=== PATIENT | male | born 1940 | race Caucasian/White ===

== ENCOUNTER 2023-11-09 17:13 | Outpatient (CLI) | payer MEDICARE, BC, SELFPAY ==
--- OUTSIDE RECORDS SUMMARY | 2023-11-11 09:31 | XMS_ITS | Encounter Summary ---
Author Name Unknown Organization [place] Address [address] [facility] [place] [address] Care Team Providers Care Hydroelectric Plant Maintainer Name Role Phone Idania Iraheta MD Primary Care Provider [phone] Encounter Details Date Type Department Care Team (Late st Contact Info) Description 05/17/2018 [facility] [address] [place] [address] Kermit Dickens MD [facility] [address] [facility] [address] [place] [address] Pre-operative laboratory examination (Primary Dx) Social History Tobacco Use Types Packs/Day Years Used Date Smoking Tobacco: Never Smokeless Tobacco: Never Alcohol Use Standard Drinks/Week Comments No 0 (1 standard drink = 0.6 oz pur e alcohol) no alcohol for last 8 years Sex and Gender Information Value Date Recorded Sex Assigned at Not on file Gender Identity Not on file Sexual Orientation Not on file documented as of this encounter Plan of Treatment Not on file documented as of this encounter Results * Methicillin Resist/Sens S. aureus PCR (05/20/2018 10:48 AM PULMONARY NURSE PRACTITIONER) Specimen Description Nares 05/20/2018 5:06 PM PULMONARY NURSE PRACTITIONER [facility] Methicillin Resist/Sens S. aureus PCR Negative NEG^Negat jay 05/21/2018 12:22 AM PULMONARY NURSE PRACTITIONER [facility] Comment: MRSA Negative: SA Negative ??MRSA and Staphylococcus aureus target DNA not detected, presumed negative for MRSA and SA colonization or the number of bacteria present may be below the limit of detection for the assay. FDA approved assay performed using [employer] GeneXpert(R) real-time PCR. Nasal structure (body structure) 05/20/2018 10:48 AM PULMONARY NURSE PRACTITIONER 05/20/2018 5:07 PM PULMONARY NURSE PRACTITIONER Kermit Dickens MD LAB - MICRO GENERAL ORDERABLES [facility] [address] [place], [place] [id number] [place] [address] [phone] documented in this encounter Visit Diagnoses Diagnosis Pre-operative laboratory examination- Primary Pre-procedural laboratory examination documented in this encounter Care Teams Hydroelectric Plant Maintainer Relationship Specialty Start Date End Date Idania Iraheta MD [facility] [address] [place] [address] PCP - General Internal Medicine 06/30/14 documented as of this encounter
--- OUTSIDE RECORDS SUMMARY | 2023-11-11 09:31 | XMS_ITS | Encounter Summary ---
Author Name Unknown Organization [facility] Address [address] [place] [address] Phone Care Team Providers Care Pecan Huller Name Role Phone Idania Iraheta MD Primary Care Provider [phone] Rigoberto Rivera MD Unavailable Encounter Details Date Type Department Care Team (Latest Contact Info) Description 10/20/2023 Travel Social History Tobacco Use Types Packs/Day Years Used Date Smoking Tobacco: Never Smokeless Tobacco: Never Alcohol Use Standard Drinks/Week Comments No 0 (1 standard drink = 0.6 oz pur e alcohol) Sex and Gender Information Value Date Recorded Sex Assigned at Male 02/03/2023 4:53 PM CDT Gender Identity Male 02/03/2023 4:53 PM CDT Sexual Orientation Straight 02/03/2023 4: 53 PM CDT documented as of this encounter Plan of Treatment Upcoming Encounters Date Type Department Care Team (Late st Contact Info) Description 12/31/2023 8:00 AM CDT [facility] Clinic [address] [place] [address] Scheduled Discharge Disposition: Discharged to home or self care (routine discharge) documented as of this encounter Visit Diagnoses Not on filedocumented in this encounter Care Teams Pecan Huller Relationship Specialty Start Date End Date Idania Iraheta MD [address] [place] [address] PCP - General Outside Provider 08/15/15 Rigoberto Rivera MD [address] [place] [address] PCP - Cardiology Cardiology 04/01/17 documented as of this encounter
--- OUTSIDE RECORDS SUMMARY | 2023-11-11 09:31 | XMS_ITS | Clinical Summary ---
Author Name Unknown Organization [facility] Address [address] [place] [address]. [place] [address] Care Team Providers Care Veterinary Technician Instructor Name Role Phone Idania Iraheta MD Primary Care Provider [phone] Allergies Active Allergy Reactions Criticality Noted Date Comments Diltiazem 04/03/2004 Unsure. ? Arm swelled up with an IV dose. Sulfa Antibiotics Hives 04/03/2004 Medications Medication Sig Dispensed Refills Start Date End Date Status ASPIRIN PO Take 81 mg by mouth daily. Active Multiple Vitamin (MULTIVITAMINS PO) Take 1 tablet by mouth daily. Active AMLODIPINE BESYLATE PO Take 5 mg by mouth 2 times daily. Active Cholecalciferol (VITAMIN D-3) 1000 units CAPS Take 1 capsule by mouth daily Active oxyCODONE (ROXICODONE) 5 MG tabletIndications:Sta tus post total left knee replacement Take 1-2 tablets (5-10 mg) by mouth every 4 hours as needed 30 tablet 06/09/2018 Active aspirin (ASA) 325 MG EC tabletIndications:VTE Prophylaxis Take 1 tablet (325 mg) by mouth daily 40 tablet 06/10/2018 Active Active Problems Problem Noted Date Diagnosed Date Total knee replacement status 04/29/2012 CARDIOVASCULAR SCREENING; LDL GOAL LESS THAN 130 05/05/2010 Atrial fibrillation 04/03/2004 Essential hypertension, benign 04/03/2004 Immunizations Name Administration Dates Next Due Influenza (IIV3) PF 05/10/2008,04/22/2005 Pneumococcal 23 valent 04/09/2006 Family History Medical History Relation Comments Heart Disease Brother a-fib Hypertension Father Diabetes Maternal Aunt Diabetes Maternal Grandmother Diabetes Mother Relation Status Comments Brother Father Maternal Aunt Maternal Grandmother Mother Social History Tobacco Use Types Packs/Day Years Used Date Smoking Tobacco: Never Smokeless Tobacco: Never Alcohol Use Standard Drinks/Week Comments No 0 (1 standard drink = 0.6 oz pur e alcohol) no alcohol for last 8 years Sex and Gender Information Value Date Recorded Sex Assigned at Not on file Gender Identity Not on file Sexual Orientation Not on file Last Filed Vital Signs Vital Sign Reading Time Taken Comments Blood Pressure 151/72 06/10/2018 7:47 AM ASSISTANT FILM EDITOR Pulse 82 06/08/2018 3:00 PM ASSISTANT FILM EDITOR Temperature 35.7 ??C (96.3 ??F) 06/10/2018 7:47 AM CS T Respiratory Rate 16 06/10/2018 9:00 AM ASSISTANT FILM EDITOR Oxygen Saturation 94% 06/10/2018 7:47 AM ASSISTANT FILM EDITOR Inhaled Oxygen Concentration - - Weight 92.1 kg (203 lb) 06/07/2018 6:11 AM ASSISTANT FILM EDITOR Height 193 cm (6' 4) 05/28/2018 12:00 PM ASSISTANT FILM EDITOR pe r H & P Body Mass Index 24.71 05/28/2018 12:00 PM ASSISTANT FILM EDITOR Plan of Treatment Not on file Medical Devices Implanted Type Area Hot Mill Observer Device Identifier Shelf Expiration Date Model / Serial / Lot Bone Cement Radiopaque Simplex P Speedset 6192-1-001 Implanted:Qty: 1 on 06/07/2018 by Kermit Dickens MD at [facility] Cement, Bone Left: Knee [employer] 10/04/2019 6192-1-001 / / [id number] Bone Cement Simplex Speed Set Implanted:Qty: 2 on 04/29/2012 by Kermit Dickens MD at [facility] Right: Knee [employer] 11/03/2013 6192-1-001 / / [id number] Imp Comp Patella Yamileth Ii 9x32mm [id number] Implanted:Qty: 1 on 04/29/2012 by Kermit Dickens MD at [facility] Right: Knee [employer]-R 02/03/2022 [id number] / / [id number] Imp Comp Femoral Yamileth Ii Cr Oxin Sz 6 Rt [id number] Implanted:Qty: 1 on 04/29/2012 by Kermit Dickens MD at [facility] Right: Knee [employer] 08/06/2021 [id number] / / [id number] Imp Baseplate Tibial Yamileth Ii Sz 7 Rt Ti [id number] Implanted:Qty: 1 on 04/29/2012 by Kermit Dickens MD at [facility] Right: Knee [employer] 08/06/2021 [id number] / / [id number] Size 7-8 13mm Legion Cr Xlpe High Flexion Articular Insert Implanted:Qty: 1 on 04/29/2012 by Kermit Dickens MD at [facility] Right: Knee [employer] 07/06/2020 [id number] / / [id number] Imp Brandon Arthrex Bio-Swivelock 5.5mm Ar-2323bcc Implanted:Qty: 1 on 07/11/2013 by Kermit Dickens MD at [facility] Left: Shoulder [employer] 08/05/2013 AR-2323BCC / / [id number] Imp Brandon Arthrex Bio-Swivelock 4.75mm Ar-2324bcm Implanted:Qty: 1 on 07/11/2013 by Kermit Dickens MD at [facility] Left: Shoulder [employer] 01/02/2015 AR-[id number] / / [id number] Wire Joseph 0.054x4 Implanted:Qty: 1 on 07/17/2014 by Sarthak Pichardo MD at [facility] Left: Toe G SOURCE 78.2040 / / [id number] Wire Joseph 0.045x4 Implanted:Qty: 1 on 07/17/2014 by Sarthak Pichardo MD at [facility] Left: Toe G SOURCE 78.2020 / / 4l Femur Cr Implanted:Qty: 1 on 06/07/2018 by Kermit Dickens MD at [facility] Left: Knee [employer] 01/02/2021 90-SRK-[id number] 00 / / [id number] Size 5 Tibia Tray Implanted:Qty: 1 on 06/07/2018 by Kermit Dickens MD at [facility] Left: Knee [employer] 07/17/2021 90-SRK-2005 00 / / [id number] Patella 33mm Implanted:Qty: 1 on 06/07/2018 by Kermit Dickens MD at [facility] Left: Knee [employer] 03/12/2021 90-SRK-[id number] 00 / / [id number] Insert Cr 4 16mm Implanted:Qty: 1 on 06/07/2018 by Kermit Dickens MD at [facility] Left: Knee [employer] 06/07/2021 90-SRK-[id number] 16 / / [id number] Advance Directives For more information, please contact: [phone] Documents on File Type Date Recorded 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 Advance Directives and Living Will 04/29/2012 HEALTH CARE DIRECTIV E 04/19/10 * Full Code (Latest Code Status on File) Date Activated Date Inactivated Comments 06/07/2018 11:10 AM 06/10/2018 1:59 PM Question Answer Comments Code status determined by: Unable to dis cuss and no AD/POLST on file; continue PREVIOUSLY ORDERED code status * Full Code Date Activated Date Inactivated Comments 04/29/2012 11:21 AM 05/02/2012 2:32 PM Healthcare Agents on File Name Relationship Healthcare Agent [facility] p Communication Allison Ailyn Spouse Health Care Agent Jacob Robertson Relative First Alternate Health Care Agent Domenico Robertson Son Second Alternate Health Care Agent Care Teams Veterinary Technician Instructor Relationship Specialty Start Date End Date Idania Iraheta MD [facility] & [address] [address] PCP - General Internal Medicine 06/30/14
--- OUTSIDE RECORDS SUMMARY | 2023-11-11 09:31 | XMS_ITS | Clinical Summary ---
Author Name Unknown Organization [email or web address] Address [address] [place] [address] Phone Care Team Providers Care Low Pressure Kettle Operator Name Role Phone Idania Iraheta MD Primary Care Provider Rigoberto Rivera MD Unavailable Source Comments Context Matters is fully rolled out on [employer]. Last update 12/08/[email or web address] Allergies Active Allergy Reactions Criticality Noted Date Comments Diltiazem Edema High 08/10/2015 Losartan Cough 05/30/2017 Sulfa Antibiotics Rash Medium 08/10/2015 Medications * Be aware that medications may not be up to date as of this document. Always verify current medications with patient. Medication Sig Dispensed Refills Start Date End Date Status amLODIPine (NORVASC) 5 mg oral tablet Take 5 mg by mouth twice daily. Active Multiple Vitamin (DAILY MULTIVITAMIN) oral tablet Take 1 tablet by mouth daily. Active Cholecalciferol (VITAMIN D-3) 1000 units oral capsule Take 1 capsule by mouth daily. Active aspirin 81 mg oral chewable tab Take 1 tablet by mouth daily. Active XARELTO 20 MG oral tablet TAKE 1 TABLET (20 MG) BY MOUTH DAILY NEEDED (FOR ATRIAL FIBRILLATION). 30 tablet 5 08/28/2022 Active carvedilol (COREG) 3.125 mg oral TABS Take 1 tablet (3.125 mg) by mouth twice daily. 60 tablet 3 11/05/2022 10/24/2023 Discontinued Active Problems Problem Noted Date Diagnosed Date Sinus node dysfunction (CMS/HHS) 08/15/2015 Overview: 1999 - Pacemaker implanted Dual Chamber Pacemaker 08/15/2015 Overview: 1999 - Initial implant, sinus node dysfunction, PAF 2006 - generator replaced 11/19/2012 - generator replaced. The patient has a Medtronic [id number] dual chamber pacemaker implanted 11/19/2012 as a replacement. Leads in use from original 09/30/[address] Rivera. This system is NOT MRI conditional with leads from 1999. PAF (paroxysmal atrial fibrillation) (CMS/HHS) 0 08/15/2015 Overview: 2004 - Ablation 2005 - Ablation 10/14-: PAF Essential hypertension, benign 08/15/2015 Encounters Date Type Department Care Team Description 10/20/2023 11:30 AM CDT Office Visit [facility] [place] [address] Rigoberto Rivera MD Sinus node dysfunction (CMS/HHS) (Primary Dx); Essential hypertension, benign; Renal insufficiency; PAF (paroxysmal atrial fibrillation) (CMS/HHS); Cardiac pacemaker in situ Discharge Disposition: Discharged to home or self care (routine discharge) 10/20/2023 Travel from Last 3 Months Family History Medical History Relation Name Comments Heart Brother Atrial fibillat ion, pacemaker Relation Name Status Comments Brother Social History Tobacco Use Types Packs/Day Years Used Date Smoking Tobacco: Never Smokeless Tobacco: Never Tobacco Cessation:Counseling Given: Not Answered Alcohol Use Standard Drinks/Week Comments No 0 (1 standard drink = 0.6 oz pur e alcohol) Sex and Gender Information Value Date Recorded Sex Assigned at Male 02/03/2023 4:53 PM CDT Gender Identity Male 02/03/2023 4:53 PM CDT Sexual Orientation Straight 02/03/2023 4: 53 PM CDT Last Filed Vital Signs Vital Sign Reading Time Taken Comments Blood Pressure 153/82 10/20/2023 11:20 AM CDT Pulse 88 10/20/2023 11:20 AM CDT Temperature 35.4 ??C (95.8 ??F) 11/05/2022 9:43 AM CD T Respiratory Rate 20 11/22/2020 2:52 PM CDT Oxygen Saturation - - Inhaled Oxygen Concentration - - Weight 95.7 kg (211 lb) 10/20/2023 11:18 AM CDT Height 195.6 cm (6' 5) 03/03/2019 3:52 PM CDT Body Mass Index 25.02 03/03/2019 3:52 PM CDT Plan of Treatment Upcoming Encounters Date Type Department Care Team (Late st Contact Info) Description 12/31/2023 8:00 AM CDT [facility] Only [facility] Cardiology Clinic [address] [place] [address] Scheduled Discharge Disposition: Discharged to home or self care (routine discharge) Health Maintenance Due Date Last Done Comments Dental Oral Exam 1939 Dental Prophylaxis 1939 Dental X-Ray: Bitewings 1939 Periodontal Maintenance 1953 Medicare Annual Wellness 1957 HEALTH MAINTENANCE PROTOCOL 1958 Osteoporosis Screening (Dexa Scan) 02/24/2004 PREVENTATIVE VISIT 04/09/2007 04/09/2006, 04/03/2004 MEDICATION REFILL PROTOCOL 12/09/2019 12/08/2018 TD/TDAP ADULTS 05/17/2030 05/17/2020, 2009 PNEUMOCOCCAL IMMUNIZATION > 65 YRS Completed 04/09/2006 INFLUENZA VACCINE Completed 04/07/2023, , 05/07/2021, Additional history exists COVID-19 Vaccine Completed 05/19/2023, 07/2022, 03/24/2022, Additional history exists HIB Aged Out No longer eligi ble based on patient's age to complete this topic HPV Aged Out No longer eligi ble based on patient's age to complete this topic Imm: HepB Aged Out No longer eligi ble based on patient's age to complete this topic RSV Immunoglobulin Aged Out No longer eligible based on patient's age to complete this topic Procedures Procedure Name Priority Date/Time Associated Diagnosis Comments PANEL BASIC METABOLIC (BMP) Routine 10/20/2023 12:25 PM CDT Essential hypertension, benign PANEL LIPID Routine 10/20/2023 12:25 PM CDT Essential hypertension, benign EKG 12 LEAD - POC (FREE STANDING CLINIC ONLY) Routine 10/20/2023 11:49 AM CDT Sinus node dysfunction (CMS/HHS) from Last 3 Months Results * (ABNORMAL) PANEL BASIC METABOLIC (BMP) (10/20/2023 12:25 PM CDT) Sodium 142 135 - 148 mEq/L [facility] Potassium 4.6 3.5 - 5.3 mEq/L [facility] Chloride 106 92 - 108 mEq/L [facility] CO2 26 22 - 30 mEq/L [facility] AnGap 10 8 - 16 mEq/L [facility] Glucose 69(L) 70 - 100 mg/dL [facility] BUN 38(H) 8 - 23 mg/dL [facility] Creatinine 1.69(H) 0.70 - 1.25 mg/dL [facility] Calcium 9.5 8.8 - 10.2 mg/dL [facility] eGFR (2020 CKD-EPI) 40(L) >=60 ml/min/1.7 3m2 [facility] Comment: The estimated glomerular filtration rate (eGFR) was calculated using the CKD-EPI 2020 creatinine equation, which does not include race as a factor. This equation is validated in individuals 18 years of age and older, and eGFR is normalized to a body surface area of 1.73m^2. Blood 10/20/2023 12:2 5 PM CDT 10/20/2023 8:40 PM CDT Rigoberto Rivera MD LABORATORY [facility] [address] [address] * (ABNORMAL) PANEL LIPID (10/20/2023 12:25 PM CDT) Cholesterol 180 <=200 mg/dL [facility] Comment: Interpretive Data <200 Desirable 200-239 Borderline high >=240 High HDL 41 >=40 mg/dL [facility] Comment: Interpretive Data Normal > 40 Male > 50 Female Triglyceride 177(H) <=150 mg/dL [facility] Comment: Interpretive Data <150 Normal 150-199 Borderline high 200-499 High >=500 Very high Calc LDL 104(H) <=100 mg/dL [facility] Comment: Interpretive Data <100 Desirable 100-129 Above desirable 130-159 Borderline high 160-189 High >=190 Very high Non-HDL Cholesterol Calculated 139(H) <=130 mg/dL [facility] Comment: Interpretive Data <130 Desirable 130-159 Above desirable 160-189 Borderline high 190-219 High >=220 Very high Blood 10/20/2023 12:2 5 PM CDT 10/20/2023 8:40 PM CDT Narrative [facility] - 10/20/2023 9:02 PM CDT Fasting: No Rigoberto Rivera MD LABORATORY Performing Organization Address [facility] Co de Phone Number [facility] [address] [address] * EKG 12 LEAD - POC ([facility] STANDING CLINIC ONLY) (10/20/2023 11:49 AM CDT) 10/20/2023 11:4 9 AM CDT Impressions [facility] CVIS EKG ORDERS - 10/20/2023 11:49 AM CDT SINUS RHYTHM WITH FIRST DEGREE AV BLOCK NONSPECIFIC T-WAVE ABNORMALITY ABNORMAL ECG P-R Interval 302 ms QRS Interval 109 ms QT Interval 407 ms QTC Interval 445 ms P [place] 62 QRS [place] 8 T Wave [place] 0 Narrative Procedure Note Nhung Malave MD - 10/20/2023 IMPRESSION SINUS RHYTHM WITH FIRST DEGREE AV BLOCK NONSPECIFIC T-WAVE ABNORMALITY ABNORMAL ECG P-R Interval 302 ms QRS Interval 109 ms QT Interval 407 ms QTC Interval 445 ms P [place] 62 QRS [place] 8 T Wave [place] 0 Rigoberto Rivera MD EKG Performing Organization Address [facility] Co de Phone Number [facility] CVIS EKG ORDERS from Last 3 Months Care Teams Low Pressure Kettle Operator Relationship Specialty Start Date End Date Idania Iraheta MD [address] [place] [address] PCP - General Outside Provider 08/15/15 Rigoberto Rivera MD [address] [place] [address] PCP - Cardiology Cardiology 04/01/17
--- OUTSIDE RECORDS SUMMARY | 2023-11-11 09:31 | XMS_ITS | Referral Summary ---
Author Name Unknown Organization [place] [facility] [place] [address] Care Team Providers Care Shop Tech Name Role Phone Idania Iraheta MD Primary Care Provider Allergies Active Allergy Reactions Criticality Noted Date [...] (IIV3) PF 05/10/2008,04/22/2005 Pneumococcal 23 valent 04/09/2006 Social History Tobacco Use Types Packs/Day Years [...] Comments Blood Pressure 151/72 06/10/2018 7:47 AM MASTER YACHT Pulse 82 06/08/2018 3:00 PM MASTER YACHT Temperature 35.7 ??C (96.3 ??F) 06/10/2018 7:47 AM CS T Respiratory Rate 16 06/10/2018 9:00 AM MASTER YACHT Oxygen Saturation 94% 06/10/2018 7:47 AM MASTER YACHT Inhaled Oxygen Concentration - - Weight 92.1 kg (203 lb) 06/07/2018 6:11 AM MASTER YACHT Height 193 cm (6' 4) 05/28/2018 12:00 PM MASTER YACHT pe r H & P Body Mass Index 24.71 05/28/2018 12:00 PM MASTER YACHT Plan of Treatment Not on file Medical Devices Implanted Type Area Filter Screen Cleaner Device Identifier Shelf Expiration Date Model / Serial / Lot Bone Cement Radiopaque Simplex P Speedset 6192-1-001 Implanted:Qty: 1 on 06/07/2018 by Kermit Dickens MD at [facility] Cement, Bone Left: Knee [employer] 10/04/2019 6192-1-001 / / [id number] Bone Cement Simplex Speed Set Implanted:Qty: 2 on 04/29/2012 by Kermit Dickens MD at [facility] Right: Knee [employer] 11/03/2013 6192-1-001 / / [id number] Imp Comp Patella Yamileth Ii 9x32mm [id number] Implanted:Qty: 1 on 04/29/2012 by Kermit Dickens MD at [facility] Right: Knee [employer] 02/03/2022 [id number] / / [id number] Imp Comp Femoral Yamileth Ii Cr Oxin Sz 6 Rt [id number] Implanted:Qty: 1 on 04/29/2012 by Kermit Dickens MD at [facility] Right: Knee [employer] 08/06/2021 [id number] / / [id number] Imp Baseplate Tibial Yamileth Ii Sz 7 Rt Ti [id number] Implanted:Qty: 1 on 04/29/2012 by Kermit Dickens MD at [facility] Right: Knee [employer] 08/06/2021 [id number] / / [id number] Size 7-8 13mm Legion Cr Xlpe High Flexion Articular Insert Implanted:Qty: 1 on 04/29/2012 by Kermit Dikcens MD at [facility] Right: Knee [employer] 07/06/2020 [id number] / / [id number] Imp [place] Arthrex Bio-Swivelock 5.5mm Ar-2323bcc Implanted:Qty: 1 on 07/11/2013 by Kermit Dickens MD at [facility] Left: Shoulder [employer] 08/05/2013 AR-2323BCC / / [id number] Imp [place] Arthrex Bio-Swivelock 4.75mm Ar-2324bcm Implanted:Qty: 1 on 07/11/2013 by Kermit Dickens MD at [facility] Left: Shoulder [employer] 01/02/2015 AR-[id number] / / [id number] Wire Joseph 0.054x4 Implanted:Qty: 1 on 07/17/2014 by Sarthak Pichardo MD at [facility] Left: Toe G SOURCE 78.2040 / / [id number] Wire Joseph 0.045x4 Implanted:Qty: 1 on 07/17/2014 by Sarthak Pichardo MD at [facility] Left: Toe G SOURCE 78.2020 / / 4l Femur Cr Implanted:Qty: 1 on 06/07/2018 by Kermit Dickens MD at [facility] Left: Knee [employer] 01/02/2021 90-SRK-[id number] / / [id number] Size 5 Tibia Tray Implanted:Qty: 1 on 06/07/2018 by Kermit Dickens MD at [facility] Left: Knee [employer] 07/17/2021 90-SRK-2005 00 / / [id number] Patella 33mm Implanted:Qty: 1 on 06/07/2018 by Kermit Dickens MD at [facility] Left: Knee [employer] 03/12/2021 90-SRK-4203 00 / / [id number] Insert Cr 4 16mm Implanted:Qty: 1 on 06/07/2018 by Kermit Dickens MD at [facility] Left: Knee [employer] 06/07/2021 90-SRK-1104 16 / / [id number] Advance Directives For more information, please contact: [phone] Documents on File Type Date Recorded Patient Joint Sealer Expl anation Advance Directives and Living Will [...] Agents on File Name Relationship Healthcare Agent [facility] p Communication Allison Robertson Spouse Health Care Agent Jacob Heiderohan Relative First Alternate Health Care Agent Domenico Abraham [facility] Health Care Agent Care Teams Shop Tech Relationship Specialty Start Date End Date Idania Iraheta MD [address] [address] PCP - General Internal Medicine 06/30/14
--- OUTSIDE RECORDS SUMMARY | 2023-11-11 09:31 | XMS_ITS | Referral Summary ---
Author Name Unknown Organization [facility] [employer] Address [address] [place] [address] Phone Care Team Providers Care Agriculture Scientist Name Role Phone Idania Iraheta MD Primary Care Provider Rigoberto Rivera MD Unavailable Source Comments [employer] is fully rolled out on [employer]. Last update 12/08/08.[employer] Encounters Date Type Department Care Team Description 10/20/2023 Travel 10/20/2023 11:30 AM CDT Office Visit [facility] [address] [place] [id number] Rigoberto Rivera MD Sinus node dysfunction (CMS/HHS) (Primary Dx); Essential hypertension, benign; Renal insufficiency; PAF (paroxysmal atrial fibrillation) (CMS/HHS); Cardiac pacemaker in situ Discharge Disposition: Discharged to home or self care (routine discharge) from Last 3 Months Allergies Active Allergy Reactions Criticality Noted Date [...] Noted Date Diagnosed Date Sinus node dysfunction ([facility]) 08/15/2015 Overview: 1999 - Pacemaker implanted Dual [...] leads from 1999. PAF (paroxysmal atrial fibrillation) ([facility]) 0 08/15/2015 Overview: 2003 - Ablation 2004 - Ablation 10/14-: PAF Essential hypertension, benign 08/15/2015 Social History Tobacco Use Types Packs/Day Years [...] [facility] [address] [place] [address] Scheduled Discharge Disposition: Discharged to home or self care (routine discharge) Procedures Procedure Name Priority Date/Time Associated Diagnosis [...] CDT) Sodium 142 135 - 148 mEq/L [facility] Potassium 4.6 3.5 - 5.3 mEq/L [facility] Chloride 106 92 - 108 mEq/L [facility] CO2 26 22 - 30 mEq/L [facility] AnGap 10 8 - 16 mEq/L [facility] Glucose 69(L) 70 - 100 mg/dL [facility] BUN 38(H) 8 - 23 mg/dL [facility] Creatinine 1.69(H) 0.70 - 1.25 mg/dL [facility] Calcium 9.5 8.8 - 10.2 mg/dL [facility] eGFR (2020 CKD-EPI) 40(L) >=60 ml/min/1.7 3m2 [facility] Comment: The estimated glomerular filtration rate (eGFR) was calculated using the CKD-EPI 2020 creatinine equation, which does not include race as a factor. This equation is validated in individuals 18 years of age and older, and eGFR is normalized to a body surface area of 1.73m^2. Blood 10/20/2023 12:2 5 PM CDT 10/20/2023 8:40 PM CDT Rigoberto Rivera MD LABORATORY [facility] [address] [place] [address] * (ABNORMAL) PANEL LIPID (10/20/2023 12:25 PM CDT) Cholesterol 180 <=200 mg/dL [facility] Comment: Interpretive Data <200 Desirable 200-239 Borderline high >=240 High HDL 41 >=40 mg/dL [facility] Comment: Interpretive Data Normal > 40 Male > 50 Female Triglyceride 177(H) <=150 mg/dL [facility] Comment: Interpretive Data <150 Normal 150-199 Borderline high 200-499 High >=500 Very high Calc LDL 104(H) <=100 mg/dL [facility] Comment: Interpretive Data <100 Desirable 100-129 Above desirable 130-159 Borderline high 160-189 High >=190 Very high Non-HDL Cholesterol Calculated 139(H) <=130 mg/dL [facility] Comment: Interpretive Data <130 Desirable 130-159 Above desirable 160-189 Borderline high 190-219 High >=220 Very high Blood 10/20/2023 12:2 5 PM CDT 10/20/2023 8:40 PM CDT Narrative [facility] - 10/20/2023 9:02 PM CDT Fasting: No Rigoberto Rivera MD LABORATORY [facility] [address] [place] [address] * EKG 12 LEAD - POC ([facility] STAND[facility] CLINIC ONLY) (10/20/2023 11:49 AM CDT) 10/20/2023 11:4 9 AM CDT Impressions [facility]IS EKG ORDERS - 10/20/2023 11:49 AM CDT SINUS RHYTHM WITH FIRST DEGREE AV BLOCK NONSPECIFIC T-WAVE ABNORMALITY ABNORMAL ECG P-R Interval 302 ms QRS Interval 109 ms QT Interval 407 ms QTC Interval 445 ms P Hinton 62 QRS Hinton 8 T Wave Hinton 0 Narrative Procedure Note Nhung Malave MD - 10/20/2023 IMPRESSION SINUS RHYTHM WITH FIRST DEGREE AV BLOCK NONSPECIFIC T-WAVE ABNORMALITY ABNORMAL ECG P-R Interval 302 ms QRS Interval 109 ms QT Interval 407 ms QTC Interval 445 ms P Hinton 62 QRS Hinton 8 T Wave Hinton 0 Rigoberto Rivera MD EKG [facility] EKG ORDERS from Last 3 Months Care Teams Agriculture Scientist Relationship Specialty Start Date End Date Idania Iraheta MD [address] [place] [address] PCP - General Outside Provider 08/15/15 Rigoberto Rivera MD [address] [place] [address] PCP - Cardiology Cardiology 04/01/17
--- OUTSIDE RECORDS SUMMARY | 2023-11-11 09:31 | XMS_ITS | Encounter Summary ---
Author Name Unknown Organization [facility] Address [address] [facility] [address] Phone Care Team Providers Care Thermoscrew Operator Name Role Phone Idania Iraheta MD Primary Care Provider Rigoberto Rivera MD Unavailable Encounter Details Date Type Department Care Team (Late st Contact Info) Description 12/11/[address] [facility] [address] [place] [address] Julio Noble I, SRNA [address] [place] [address] Social History Tobacco Use Types Packs/Day Years Used Date Smoking Tobacco: Never Sex and Gender Information Value Date Recorded Sex Assigned at Male 02/03/2023 4:53 PM CDT Gender Identity Male 02/03/2023 4:53 PM CDT Sexual Orientation Straight 02/03/2023 4: 53 PM CDT documented as of this encounter Plan of Treatment Upcoming Encounters Date Type Department Care Team (Late st Contact Info) Description 12/31/2023 8:00 AM CDT [facility] [address] [address] Scheduled Discharge Disposition: Discharged to home or self care (routine discharge) documented as of this encounter Visit Diagnoses Not on filedocumented in this encounter Care Teams Thermoscrew Operator Relationship Specialty Start Date End Date Idania Iraheta MD [address] [place] [address] PCP - General Outside Provider 08/15/15 Rigoberto Rivera MD [address] [place] [address] PCP - Cardiology Cardiology 04/01/17 documented as of this encounter
--- OUTSIDE RECORDS SUMMARY | 2023-11-11 09:31 | XMS_ITS | Encounter Summary ---
Author Name Unknown Organization [facility] Address [address] [facility] [place] [address] Care Team Providers Care Roofer Apprentice Name Role Phone Nico Arnold MD Primary Care Provider [phone] Raoul Rowe MD Primary Care Provider Idania Iraheta MD Primary Care Provider [phone] Encounter Details Date Type Department Care Team (Late st Contact Info) Description 01/20/[address] [place] [address] Nico Arnold MD [facility] [address] [place] [address] MARK NW POST OP NOTE, ANESTHESIA ASSESSMENT (Primary Dx) Social History Tobacco Use Types [...] on file documented as of this encounter Visit Diagnoses Diagnosis [facility] NW POST OP NOTE, ANESTHESIA ASSESSMENT- Primary documented in this encounter Care Teams Roofer Apprentice Relationship Specialty Start Date End Date Nico Arnold MD [facility] [address] [place] [address] PCP - General 08/20/01 04/22/12 Raoul Rowe MD [facility] [address] [place] [address] PCP - General 04/23/12 06/29/14 Idania Iraheta MD [facility] [address] [place] [address] PCP - General Internal Medicine 06/30/14 documented as of this encounter
--- OUTSIDE RECORDS SUMMARY | 2023-11-11 09:31 | XMS_ITS | Clinical Summary ---
Author Name Unknown Organization [facility] Address [place], [place] [address] Care Team Providers Care Core Drilling Supervisor Name Role Phone Raoul Rowe MD Primary Care Provider Allergies Active Allergy Reactions Criticality Noted Date Comments Diltiazem Edema 08/14/2006 Losartan Cough 05/30/2017 Sulfa (Sulfonamide Antibiotics) Hives 03/2007 Medications Medication Sig Dispensed Refills Start Date End Date Status aspirin 81 mg tablet Take 81 mg by mouth once daily with a meal. Take 1 tablet by mouth daily Active amLODIPine (NORVASC) 10 mg tablet Take 10 mg by mouth once daily. Take 1 tablet by mouth daily Active multivitamin (MVI) tablet Take 1 tablet by mouth once daily. Take 1 tablet by mouth daily Active cholecalciferol (VITAMIN D-3) 2,000 unit capsule Take 1 capsule by mouth once daily. 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 Sensorineural hearing loss, bilateral 06/15/2007 Sinoatrial node dysfunction 08/16/2006 Unspecified essential hypertension 08/16/2006 PAROXYSMAL ATRIAL FIBRILLATION 08/16/2006 Overview: s/p radiofrequency ablation 2003 and 2005 Encounters Date Type Department Care Team Description 09/25/2023 Telephone [facility] [address] [place] [address] John Tidwell, AuD Hearing Aid from Last 3 Months Social History Tobacco Use Types Packs/Day Years Used Date Smoking Tobacco: Never Tobacco Cessation:Counseling Given: Yes Alcohol Use Standard Drinks/Week Comments Not Asked 0 (1 standard drink = 0.6 oz pur e alcohol) Sex and Gender Information Value Date Recorded Sex Assigned at Not on file Gender Identity Not on file Sexual Orientation Not on file Obstetrics History Last Filed Vital Signs Vital Sign Reading Time Taken Comments Blood Pressure 142/77 10/21/2022 4:17 PM CDT Pulse 80 10/21/2022 4:17 PM CDT Temperature 36.4 ??C (97.5 ??F) 08/25/2016 4:20 PM CS T Respiratory Rate 16 11/19/2012 5:00 PM CDT Oxygen Saturation 96% 10/21/2022 4:17 PM CDT Inhaled Oxygen Concentration - - Weight 97.1 kg (214 lb) 10/21/2022 4:17 PM CDT Height 195.6 cm (6' 5) 11/19/2012 11:17 AM CDT Body Mass Index 25.38 11/19/2012 11:17 AM CDT Plan of Treatment Health Maintenance Due Date Last Done Comments Tdap 1950 Depression screening for age 12+ 1951 BMI (ht and wt on same day) for age 18+ 1957 Tetanus booster 1959 Zoster (shingles) series for age 50+ (1 of 2) 1989 Medicare Wellness for age 65+ 02/24/2004 Pneumococcal series for age 65+ (1 of 1 - PCV) 02/24/2004 COVID-19 vaccine series (2022-24 season) 2023 02/03/2023, 03/24/2022, 10/22/2021, Additional history exists Influenza for age 65+ 03/06/2024 Advance Directives * Full Code (Latest Code Status on File) Date Activated Date Inactivated Comments 12/16/2010 11:55 AM 12/16/2010 6:36 PM * Full Code Date Activated Date Inactivated Comments 12/16/2010 10:32 AM 12/16/2010 11:55 AM * Full Code Date Activated Date Inactivated Comments 08/17/2006 7:04 AM 08/17/2006 10:30 PM * Full Code Date Activated Date Inactivated Comments 01/16/2005 9:47 AM 01/16/2005 9:51 AM Care Teams Core Drilling Supervisor Relationship Specialty Start Date End Date Raoul Rowe MD [address] [place] [address] PCP - General 11/18/12
--- OUTSIDE RECORDS SUMMARY | 2023-11-11 09:31 | XMS_ITS | Encounter Summary ---
Author Name Unknown Organization [place] Address [address] [place] [address] Care Team Providers Care Human Insights Lead Ads Marketing Name Role Phone Nico Arnold MD Primary Care Provider [phone] Raoul Rowe MD Primary Care Provider Idania Iraheta MD Primary Care Provider [phone] Encounter Details Date Type Department Care Team (Late st Contact Info) Description 01/16/[address] [place] [address] Nico Arnold MD [facility] [address] [place] [address] MARK DISCHARGE SUMMARY (Primary Dx) Social History Tobacco Use Types [...] as of this encounter Visit Diagnoses Diagnosis MARK NW DISCHARGE SUMMARY- Primary documented in this encounter Care Teams Human Insights Lead Ads Marketing Relationship Specialty Start Date End Date Nico Arnold MD [facility] [address] [place] [address] PCP - General 08/20/01 04/22/12 Raoul Rowe MD [facility] [address] [place] [address] PCP - General 04/23/12 06/29/14 Idania Iraheta MD [facility] [address] [place] [address] PCP - General Internal Medicine 06/30/14 documented as of this encounter
--- OUTSIDE RECORDS SUMMARY | 2023-11-11 09:31 | XMS_ITS | Encounter Summary ---
Author Name Unknown Organization [facility] Address [address] [place] [address] Phone Care Team Providers Care Advertising Representative Name Role Phone Idania Iraheta MD Primary Care Provider Rigoberto Rivera MD Unavailable Reason for Visit * Reason Comments Cardiac Device Evaluation Remote pacemak er check Encounter Details Date Type Department Care Team (Late st Contact Info) Description 08/06/2023 8:00 AM COMPUTER SCIENCE INTERN Nurse Only [facility] Card[facility] Clinic [address] [address] Sánchez Simeon, JENNA [address] [address] Cardiac pacemaker in situ Discharge Disposition: Discharged to home or self care (routine discharge) Social History Tobacco Use Types Packs/Day Years [...] PM CDT documented as of this encounter Miscellaneous Notes * Result Encounter Note - Susana Bahndari RN - 08/06/2023 8:00 AM CST Today's remote dual chamber pacemaker transmission is reviewed. Since the last remote check on 05/07/23 there has been 1 VHR episode, 1 AHR episode and 20 mode switch episodes detected within programmed parameters. VHR episode occurred on 05/19/23 lasting for 10 beats. AHR episode occurred on 06/20/23 with recorded duration of 40 seconds, review of stored data reveals 1:1 AV conduction. Presentingrhythm is APVS. RA pacing 33.4% and RV pacing 0.9%, currently programmed in MVP mode. Stable lead measurements and trending. Normal pacemaker function. Remote data conveyed to the provider. See attached documentation under the Cardiology/Echo section of Results Review. UTER SCIENCE INTERN documented in this encounter Plan of Treatment Upcoming Encounters Date Type Department Care Team (Late st Contact Info) Description 12/31/2023 8:00 AM CDT Nurse Only [facility] [address] [place] [address] Scheduled Discharge Disposition: Discharged to home or self care (routine discharge) Scheduled Orders Name Type Priority Associated Diagnoses Orde r Schedule PROGRAM EVALUATE PACEMAKER Cardiac Device Routine Cardiac pacemaker in situ 2 Occurrences starting 08/06/2023 until 08/06/2024 documented as of this encounter Procedures Procedure Name Priority Date/Time Associated Diagnosis Comments EVALUATE PACEMAKER/ ICM REMOTE Routine 08/06/2023 1:58 PM COMPUTER SCIENCE INTERN Cardiac pacemaker in situ documented in this encounter Results * EVALUATE PACEMAKER/ ICM REMOTE (08/06/2023 1:58 PM COMPUTER SCIENCE INTERN) Sánchez WEST CARDIAC DEVICE ORDER GEETA [facility] PACEART documented in this encounter Visit Diagnoses Diagnosis Cardiac pacemaker in situ documented in this encounter Care Teams Advertising Representative Relationship Specialty Start Date End Date Idania Iraheta MD [address] [place] [address] PCP - General Outside Provider 08/15/15 Rigoberto Rivera MD [address] [place] [address] PCP - Cardiology Cardiology 04/01/17 documented as of this encounter
--- OUTSIDE RECORDS SUMMARY | 2023-11-11 09:31 | XMS_ITS | Encounter Summary ---
Author Name Unknown Organization [place] Address [address] [place] [address] Care Team Providers Care Gum Dipper Name Role Phone Nico Arnold MD Primary Care Provider [phone] Raoul Rowe MD Primary Care Provider Idania Iraheta MD Primary Care Provider Encounter Details Date Type Department Care Team (Late st Contact Info) Description 08/17/[address] [place] [address] Nico Arnold MD [facility] [address] [place] [address] [facility] PACEMAKER PROCEDURE NOTE (Primary Dx) Social History Tobacco Use Types [...] as of this encounter Visit Diagnoses Diagnosis [facility] PACEMAKER PROCEDURE NOTE- Primary documented in this encounter Care Teams Gum Dipper Relationship Specialty Start Date End Date Nico Arnold MD [place] [address] [place] [address] PCP - General 08/20/01 04/22/12 Raoul Rowe MD [facility] [address] [place] [address] PCP - General 04/23/12 06/29/14 Idania Iraheta MD [facility] [address] [place] [address] PCP - General Internal Medicine 06/30/14 documented as of this encounter
--- OUTSIDE RECORDS SUMMARY | 2023-11-11 09:31 | XMS_ITS | Encounter Summary ---
Author Name Unknown Organization [facility] Address [address] [place] [address] Phone Care Team Providers Care Multiple Needle Stitcher Name Role Phone Idanai Iraheta MD Primary Care Provider Rigoberto Rivera MD Unavailable Encounter Details Date Type Department Care Team (Late st Contact Info) Description 10/20/2023 11:30 AM CDT Office Visit [facility] Cardiology [facility] [address] [place] [id number] Rigoberto Rivera MD [address] [place], [place] [id number] [place] [address] Sinus node dysfunction (CMS/HHS) (Primary Dx); Essential [...] PM CDT documented as of this encounter Last Filed Vital Signs Vital Sign Reading Time Taken Comments Blood Pressure 153/82 10/20/2023 11:20 AM CDT Pulse 88 10/20/2023 11:20 AM CDT Temperature - - Respiratory Rate - - Oxygen Saturation - - Inhaled Oxygen Concentration - - Weight 95.7 kg (211 lb) 10/20/2023 11:18 AM CDT Height - - Body Mass Index 25.02 03/03/2019 3:52 PM CDT documented in this encounter Progress Notes * Rigoberto Rivera MD - 10/20/2023 11:30 AM CDT Images from the original note were not included. [facility] Luciano Robertson : 1940 Sex: male CC: Idania Iraheta MD Date of Service: 10/20/2023 Medical Decision Making: Assessment Hypertension - Chronic. Mildly elevated presently. On Amlodipine 5 mg twice daily. Sinus node dysfunction - Has pacemaker with intermittent atrial pacing. Marked first degree AV block: 302 ms. Has been having rare ventricular pacing. Pacemaker - No evidence for device malfunction. Paroxysmal Atrial fibrillation: Ten day paroxysm in 10/2018 was the first sustained episode since 2005 ablation procedure. With that episode his rate was brought under control with Metoprolol and the arrhythmia resolved spontaneously. No significant episodes in the past 5 years. Renal insufficiency: Stage 3b presently - Creatinine of 1.69 is significantly higher than the last one I have access to which was 1.17 in 2019. Mitral insufficiency: Mild to moderate per 2019 echo. Murmur does not suggest significant progression since. Anticoagulation: Was placed on Rivaroxaban when the above paroxysm occurred and this was continued for over 4 months after the event. [id number] score is 4. Implies 4% annual embolic risk. However,at this time I believe his actual risk is significantly lower than that given his awareness when AFoccurs, the infrequent paroxysms, and our ability to use the pacemaker to monitor him. He has residual Rivaroxaban tablets at home to go on immediately should the atrial fibrillation recur. Atherosclerotic disease: In 2004 aortic calcification identified on CT scan, minimal plaque on carotid ultrasound. Plan: No medication changes are advised. Advised him to monitor blood pressures and report back if more often than not above 130/80. Suggested that he follow-up with Dr. Iraheta regarding the renal dysfunction. Will try to obtain recent labs from Dr. Iraheta. Continue to monitor pacemaker with remote transmission every 3 months. Encouraged him to resume a regular aerobic exercise routine as his foot issues allow. Will tentatively plan to have the patient return for a follow-up visit in about one year, unless clinical status warrants earlier assessment. HISTORY: 83 year old man who is here for cardiovascular follow-up. The patient was accompanied to the visit today by his . He has hypertension, sinus node dysfunction, pacemaker, and paroxysmal atrial fibrillation. Major events: 2000: Pacemaker implantation 2004: Radiofrequency Ablation 2005: Radiofrequency Ablation 2007: Pacemaker generator replacement 11/19/2012: Pacemaker generator replacement. 2003: Echocardiogram: Normal. 10/15/2018: He called after having developed palpitations the previous day and noting some symptoms of dyspnea. A remote pacemaker transmission showed that he had developed atrial fibrillation with rapid ventricular rate with a mean rate in the 130 bpm range about 35 hours earlier. His blood pressure was running 110/55. -- I advised him to start Metoprolol 25 mg twice daily to slow his rate, and to stop Amlodipine to minimize the risk of hypotension with the addition of metoprolol. -- I also advised him to start Rivaroxaban at 20 mg daily for embolic prophylaxis. 10/18/2018: CLINIC VISIT... Over the weekend, the patient felt progressively better with improved activity tolerance and less symptoms of exertional dyspnea. He was still not back to his previous baseline. His noted that he seemed to have more exertional dyspnea even prior to the atrial fibrillationElectrocardiogram showed him to still be in atrial fibrillation. 10/28: He called due to feeling better with regularization of his rhythm. Pacmaker transmission documented that the atrial fibrillation had resolved spontaneously. 10/29: Echocardiogram: showed normal left ventricular systolic function, mild to moderate mitral insufficiency (see below for further details). . 11/01: Phone call: Blood pressure had risen - resumed amlodipine 5 mg per day. Decreased Metoprolol from 25 to 12.5 mg twice daily. 11/08/2018 CLINIC VISIT... He had increased the Amlodipine back to twice daily due to persistent hypertension. It subsequentlyimproved but was still hanging out in the 140's- 150's systolic.. He was feeling significantly better since the atrial fibrillation resolved with improved activity tolerance and less fatigue. -- I advised him to add Triamterene/Hydrochlorothiazide 37.5/25 mg, one daily. 03/03/2019: CLINIC VISIT... A few days after the above visit he reported feeling poorly so I advised him to stop the diuretic. He subsequently also stopped taking Metoprolol. Blood pressure had been good. Was 115/71 at home that morning. --- Rivaroxaban was replaced by aspirin. 11/22/2020: CLINIC VISIT... He had been generally feeling well. He exercised regularly. On alternate days, he walked or rode the exercise bicycle. When he walked, he went 1.5 miles which took about 30 minutes. When he walked on a treadmill, he usually finished matthew 2.8 mph pace. When he rode the exercise bicycle, he went 10 to 15 minutes at a time. His stamina overall was similar to the previous year. He rode a cart when he played golf. He had been doing some physical therapy for his left hip and for follow-up of knee replacement. Some of these exercises were quite strenuous. He typically did the therapy on the days he did not play golf. 11/19/2021: CLINIC VISIT He continued to go for 25-30 minute walks 2-3 times a week. Rode exercise bike on alternate days. Got tired after 18 holes but not to the extent where he had to rest or cut it short. Rode a cart. He had occasional palpitations. He recalled one episode of palpitations that lasted about 3-4 hoursrecently (although this did not correlate with anything significant in the pacemaker memory). Blood pressures were usually averaging about 120s over 80s. There were sporadic high readings in the mornings before medications. Was taking the medication a bit inconsistently in terms of timing. He admitted that he could do better with his diet. He ate his food with salt and noted that his encouraged him to cut down on this. He otherwise feels at baseline without major concerns. 11/05/2022: LAST VISIT... He felt about the same. He had not been exercising much recently due to problem on the bottom of his foot. Prior to that hehad been doing about the same, including walking, exercise bike, stretching, and strengthening exercises, as well as golf. His blood pressures had been ranging from 115-145/75-88. He was averaging in the 130's/80's. -- I added carvedilol 3.125 mg twice daily. SINCE THE LAST VISIT... He stopped taking carvedilol after a few doses due to feeling unwell (drowsiness, impotence, tiredness, facial itching). He does not recall blood pressures. He generally feels okay. Walking has become more problematic - limited by foot problems. He reports he has been found to have no padding on the bottom of his feed. He does PT exercises. He recently visited brother in [place]. He played golf there twice. The patient denies any recent chest pain, dyspnea, palpitations, dizziness, edema, or weight change. He reports checking his blood pressures at home rarely. Does not recall his findings... Current Outpatient Medications Medication Sig Dispense Refill XARELTO 20 MG oral tablet TAKE 1 TABLET (20 MG) BY MOUTH DAILY NEEDED (FOR ATRIAL FIBRILLATION).30 tablet 5 aspirin 81 mg oral chewable tab Take 1 tablet by mouth daily. Multiple Vitamin (DAILY MULTIVITAMIN) oral tablet Take 1 tablet by mouth daily. Cholecalciferol (VITAMIN D-3) 1000 units oral capsule Take 1 capsule by mouth daily. amLODIPine (NORVASC) 5 mg oral tablet Take 5 mg by mouth twice daily. No current facility-administered medications for this visit. Allergies and drug reactions: Allergies Allergen Reactions Diltiazem Edema Sulfa Antibiotics Rash FAMILY HISTORY: Brother has atrial fibrillation and a pacemaker. No family history of premature CAD, cardiomyopathyor sudden cardiac REVIEW OF SYSTEMS: -General: General health has been stable. No recent weight change, no change in strength or exercise tolerance. -Head: No recent issues with headaches. -Eyes: No recent change in vision or sudden loss of vision. -Ears: Hearing is getting progressively worse. -Heart: No chest pain, no palpitations -Pulmonary: no wheezing, no unusual cough -Gastrointestinal: no change in appetite, no change in bowel habits , no abdominal pain, no black or bloody stools. -Urinary: No change in urination pattern. -Extremities: No edema. -Neurologic: No focal weakness or numbness. No recent dizziness. -Psychiatric: No depressive symptoms, no changes in thought content. -Hematologic: Bruises easily. -Does not drink alcohol, use nicotine products, or illicit drugs. PHYSICAL EXAMINATION: Vitals: 10/20/23 1118 10/20/23 1120 BP: (!) 157/81 (!) 153/82 Cuff Location: Left Arm Left Arm Patient Position: Sitting Sitting Cuff Size: Adult - regular Adult - regular Pulse: 86 88 Weight: 95.7 kg (211 lb) Body mass index is 25.02 kg/m??. Constitutional: General appearance: Comfortable and in no distress Eyes: No icterus. HENT: Head: Normocephalic, atraumatic. Mucosa normal. No xanthelasma. Neck:: Supple. No thyromegaly. Carotid upstrokes normal and without bruits. No Jugular venous distention. Pulmonary: Chest symmetric, lungs clear bilaterally and no crackles, wheezes or rales Cardiovascular: Regular rhythm. Normal first and second heart sound. Grade 1/6 apical systolic murmur. No other extra sounds. Gastrointestinal: Soft, nontender. No organomegaly or masses. Normal bowel sounds. Extremities: Minimal edema. Skin: Normal skin color, texture, and turgor. Neurologic: Oriented and appropriate without obvious focal deficits. Psychiatric: Normal affect. Electrocardiogram: (personally reviewed) Sinus rhythm. Rate 81 bpm. First degree AV block (CA 302 ms) Minor T wave inversion III. Not significantly changed compared with previous except for lack of pacemaker spikes. . Echocardiogram: 10/29/2018: Normal left ventricular size, systolic function, and wall motion. The estimated left ventricular ejection fraction is 56%. Mildly dilated proximal aorta 4.3 at the Sinus of Valsalva. Mild left atrial enlargement. Mild to moderate mitral valve insufficiency. The estimated pulmonary artery systolic pressure is 32 mmHg + RA pressure. Based on IVC geometry, the right atrial pressure is probably normal. Device lead(s) visualized in right heart chambers. Pacemaker interrogation: (DF personally supervised with [employer] rep) Sensing and pacing thresholds are stable. Device function is normal. Device has been Atrial pacing 33%, ventricular pacing 1%. Memory indicates rare short mode switching episodes, lasting less than one minute. Longest AHR episode suggesting AF was 06/20/2023 lasting 40 seconds. Estimated battery life is about 2-6 years. Laboratory tests: Lab Results Component Value Date NA 142 10/20/2023 K 4.6 10/20/2023 CR 1.69 (H) 10/20/2023 GLU 69 (L) 10/20/2023 UN 38 (H) 10/20/2023 CA 9.5 10/20/2023 HGB 13.8 10/18/2018 PLT 271 10/18/2018 No results found for: MG Lab Results Component Value Date LPCHOL 180 10/20/2023 CALCLDL 104 (H) 10/20/2023 HDL 41 10/20/2023 TRIGLYCERIDE 177 (H) 10/20/2023 No results found for: BNP, DIG Lab Results Component Value Date INR 1.4 (H) 10/18/2018 ADDITIONAL COMMENTS: REVIEW OF DIAGNOSTIC TESTS: as listed above INDEPENDENT INTERPRETATION OF DIAGNOSTIC TEST: ECG, pacemaker interrogation Total time spent on this encounter, on the date of service, including pre-visit review of separately obtained history, [id number] interaction performing medically appropriate physical exam, patientcounseling/education, interpretation of diagnostic results, care coordination and documentation was42 minutes. This office note has been produced utilizing voice recognition software. If there are any questions about our evaluation or recommendations, please do not hesitate to contact us. Rigoberto Rivera MD documented in this encounter Plan of Treatment Upcoming Encounters Date Type Department Care Team (Late st Contact Info) Description 12/31/2023 8:00 AM CDT [facility] [address] [place], [place] [id number] Scheduled Discharge Disposition: Discharged to home or self care (routine discharge) documented as of this encounter Procedures Procedure Name Priority Date/Time Associated Diagnosis Comments PANEL BASIC METABOLIC (BMP) Routine 10/20/2023 12:25 PM CDT Essential hypertension, benign PANEL LIPID Routine 10/20/2023 12:25 PM CDT Essential hypertension, benign EKG 12 LEAD - POC ([facility]IN[facility] ONLY) Routine 10/20/2023 11:49 AM CDT Sinus node dysfunction (CMS/HHS) documented in this encounter Results * (ABNORMAL) PANEL LIPID (10/20/2023 12:25 PM CDT) Cholesterol 180 <=200 mg/dL [facility] Comment: Interpretive Data <200 Desirable 200-239 Borderline high >=240 High HDL 41 >=40 mg/dL [facility] Comment: Interpretive Data Normal > 40 Male > 50 Female Triglyceride 177(H) <=150 mg/dL [facility] Comment: Interpretive Data <150 Normal 150-199 Borderline high 200-499 High >=500 Very high Calc LDL 104(H) <=100 mg/dL [facility] Comment: Interpretive Data <100 Desirable 100-129 Above desirable 130-159 Borderline high 160-189 High >=190 Very high Non-HDL Cholesterol Calculated 139(H) <=130 mg/dL [facility] Comment: Interpretive Data <130 Desirable 130-159 Above desirable 160-189 Borderline high 190-219 High >=220 Very high Blood 10/20/2023 12:2 5 PM CDT 10/20/2023 8:40 PM CDT Narrative [facility] - 10/20/2023 9:02 PM CDT Fasting: No Rigoberto Rivera MD LABORATORY [facility] [address] [address] * (ABNORMAL) PANEL BASIC METABOLIC (BMP) (10/20/2023 12:25 PM CDT) Sodium 142 135 - 148 mEq/L [facility] Potassium 4.6 3.5 - 5.3 mEq/L [facility] Chloride 106 92 - 108 mEq/L [facility] CO2 26 22 - 30 mEq/L [facility] AnGap 10 8 - 16 mEq/L [facility] Glucose 69(L) 70 - 100 mg/dL [facility] BUN 38(H) 8 - 23 mg/dL [facility] Creatinine 1.69(H) 0.70 - 1.25 mg/dL [facility] Calcium 9.5 8.8 - 10.2 mg/dL [facility] eGFR (2020 CKD-EPI) 40(L) >=60 ml/min/1.7 3m2 [facility] Comment: The estimated glomerular filtration rate (eGFR) was calculated using the CKD-EPI 2020 creatinine equation, which does not include race as a factor. This equation is validated in individuals 18 years of age and older, and eGFR is normalized to a body surface area of 1.73m^2. Blood 10/20/2023 12:2 5 PM CDT 10/20/2023 8:40 PM CDT Rigoberto Rivera MD LABORATORY Performing Organization Address City/[facility]/ZIP Co de Phone Number [facility] [address] [place] [address] * EKG 12 LEAD - POC ([facility]IN[facility] ONLY) (10/20/2023 11:49 AM CDT) 10/20/2023 11:4 9 AM CDT Impressions [facility] CVIS EKG ORDERS - 10/20/2023 11:49 AM CDT SINUS RHYTHM WITH FIRST DEGREE AV BLOCK NONSPECIFIC T-WAVE ABNORMALITY ABNORMAL ECG P-R Interval 302 ms QRS Interval 109 ms QT Interval 407 ms QTC Interval 445 ms P [place] 62 QRS [place] 8 T Wave [place] 0 Narrative Procedure Note Nhung Malave MD - 10/20/2023 IMPRESSION SINUS RHYTHM WITH FIRST DEGREE AV BLOCK NONSPECIFIC T-WAVE ABNORMALITY ABNORMAL ECG P-R Interval 302 ms QRS Interval 109 ms QT Interval 407 ms QTC Interval 445 ms P [place] 62 QRS [place] 8 T Wave [place] 0 Rigoberto Rivera MD EKG Performing Organization Address [facility] Co de Phone Number [facility] CVIS EKG ORDERS documented in this encounter Visit Diagnoses Diagnosis Sinus node dysfunction (CMS/HHS)- Primary Sinoatrial node dysfunction Essential hypertension, benign Renal insufficiency Unspecified disorder of kidney and ureter PAF (paroxysmal atrial fibrillation) (CMS/HHS) Atrial fibrillation Cardiac pacemaker in situ documented in this encounter Care Teams Multiple Needle Stitcher Relationship Specialty Start Date End Date Idania Iraheta MD [address] [place] [address] PCP - General Outside Provider 08/15/15 Rigoberto Rivera MD [address] [place] [address] PCP - Cardiology Cardiology 04/01/17 documented as of this encounter
== END 2023-11-09 17:14 | disposition home or self-care (01) ==
LOC: NFLDREF 11-11 09:29
PROVIDERS: PCP Internal Medicine; Referring Provider Internal Medicine; Visit Provider Internal Medicine
DX: I10 Essential (primary) hypertension (principal); I48.0 Paroxysmal atrial fibrillation
CPT/HCPCS: 80048

== ENCOUNTER 2024-03-08 14:29 | Emergency (ER) | payer MEDICARE, BC, SELFPAY ==
[2024-03-08] VITALS (19 sets, daily range): BP systolic 146–184; BP diastolic 85–109; PULSE 61–76; RESP 16–18; TEMP 35.8; O2SAT 93–97; BMI 25.0
--- NOTE | 2024-03-08 14:42 | CRLHL7_ITS ---
For Patients: As a result of the Century Cures Act, medical imaging exams and procedure reports are released immediately into your electronic medical record. You may view this report before your referring provider. If you have questions, please contact your health care provider. Indication: Chest pain Technique: Chest 2 views Comparison: None Findings/Impression: Cardiovascular and mediastinum: Normal heart size with aortic tortuosity and atherosclerotic calcification. Left-sided dual lead pacemaker with leads overlying the expected right atrium and right ventricle. Lungs and pleural spaces: Lungs are clear. No sign of infiltrate or mass. No sign of pleural effusion. No pneumothorax. Bones and soft tissues: No significant findings. Dictated by Dariel Foss MD @ 03/08/2024 3:09:53 PM (Electronically Signed)
--- NOTE | 2024-03-08 14:52 | ED.CHESTPAIN ---
HPI - Chest Pain General Date Seen: 03/08/24 Chief Complaint: Chest Pain Stated Complaint: Chest pain - arm and shoulder Time Seen by Provider: 03/08/24 14:42 Source: patient Mode of arrival: ambulatory Limitations: no limitations History of Present Illness HPI narrative: Patient is an 84-year-old male presenting to the emergency department for chest pain. He states he is currently pain-free. States 4 days ago and yesterday he had a 1 hour episode of chest pain and bilateral arm pain. States both times he checked his pulse and felt irregular and then when the symptoms subsided he checked his pulse again and he seemed to be back and rhythm. Does have a history of AFib but has a pacemaker and has had 3 separate ablations. States he has not had episode of AFib in quite a while he states. Has been doing well since his symptoms subsided yesterday but called home performance laborer at [facility] today and got a hold of the nursing line was told to come to the emergency department for evaluation. Denies fevers, chills, shortness of breath, weakness, lightheadedness, dizziness, abdominal pain. States he feels asymptomatic at this time. States he has had leftover Xarelto that he has not taken for a while but did take a dose last night Related Data Home Medications ?Medication ?Instructions ?Recorded ?Confirmed aspirin 81 mg tablet,delayed 81 mg PO QDAY 02/10/22 03/08/24 release cholecalciferol (vitamin D3) 25 25 mcg PO QDAY 02/10/22 11/09/23 mcg (1,000 unit) capsule multivitamin 1 tab PO QDAY 02/10/22 11/09/23 Previous Rx's ?Medication ?Instructions ?Recorded amlodipine 5 mg tablet 5 mg PO BID #180 tabs 01/04/24 Allergies Allergy/AdvReac Type Severity Reaction Status Date / Time diltiazem Allergy Mild Unknown Verified 11/09/23 15:59 Sulfa (Sulfonamide Allergy Mild Verified 11/09/23 15:59 Antibiotics) Review of Systems Status of ROS Reports: 10 or more systems reviewed and unremarkable except as noted in History and below [facility] Medical History History of renal calculi (2018) ?Z87.442 - Personal history of urinary calculi (ICD-10) Surgical History History of malignant melanoma ?Z85.820 - Personal history of malignant melanoma of skin (ICD-10) History of blepharoplasty ?Z98.890 - Other specified postprocedural states (ICD-10) AV fistula ?I77.0 - Arteriovenous fistula, acquired (ICD-10) History of foot surgery (12/12/10) ?Z98.890 - Other specified postprocedural states (ICD-10) History of squamous cell carcinoma in situ (SCCIS) of skin (2019) ?Z86.007 - Personal history of in-situ neoplasm of skin (ICD-10) Bleeding internal hemorrhoids (2015) ?K64.8 - Other hemorrhoids (ICD-10) Basal cell carcinoma of scalp (12/12/10) ?C44.41 - Basal cell carcinoma of skin of scalp and neck (ICD-10) History of left ankle joint replacement ?Z96.662 - Presence of left artificial ankle joint (ICD-10) History of total knee replacement (2011) ?Z96.659 - Presence of unspecified artificial knee joint (ICD-10) History of shoulder surgery (12/12/10) ?Z98.890 - Other specified postprocedural states (ICD-10) History of hernia repair (12/12/10) ?Z98.890 - Other specified postprocedural states (ICD-10) ?Z87.19 - Personal history of other diseases of the digestive system (ICD-10) History of blepharoplasty (2017) ?Z98.890 - Other specified postprocedural states (ICD-10) Status post left foot surgery (11/20/10) ?Z98.890 - Other specified postprocedural states (ICD-10) S/P right knee arthroscopy (11/20/10) ?Z98.890 - Other specified postprocedural states (ICD-10) History of hip surgery (07/21/19) ?Z98.890 - Other specified postprocedural states (ICD-10) Social History What is your current living situation?: I presently have a place to live Problems where you live: no known problems In the past 12 months, utilities in danger of being shut off: no In past 12 months, lack of transportation kept you from medical appts, meetings, work, or getting things needed for daily living: no In the past 12 mos, have been you worried that your food would run out before you had money to buy more?: never true In the past 12 mos, the food you bought just didn't last and you didn't have money to buy more?: never true Smoking Status: Never smoker Non-prescribed substance use: denies use How often does anyone, including family, friends and others, physically hurt you: never How often does anyone, including family, friends and others, insult or talk down to you: never How often does anyone, including family, friends and others, threaten you with harm: never How often does anyone, including family, friends and others, scream or curse at you: never Little interest or pleasure in doing things: not at all Feeling down, depressed, or hopeless: not at all Exam Narrative Exam Narrative: Const: Well-nourished, Well-developed, in no distress Eyes: PERRL, no conjunctival injection, and symmetrical lids HENT: Atraumatic external nose and ears. Moist mucous membranes. Neck: Symmetric, trachea midline, No thyromegaly. CVS: RRR, No murmurs or gallops. Peripheral pulses 2+ and equal in all extremities RESP: Unlabored respiratory effort. Clear to auscultation bilaterally. GI: Nontender/Nondistended, No rebound or guarding. MSK:Extremities w/o deformity, Normal Active ROM Skin: Warm, Dry. No rashes or lesions. Neuro: Normal Muscle tone, No focal neurological deficits. Psych: Awake, Alert, & Oriented x3. Appropriate mood and affect. Const Vital Signs, click to edit/add: Vital Signs - 24 hr 03/08/24 14:35 03/08/24 14:40 03/08/24 14:41 Temperature 96.5 F L Pulse Rate 69 66 Pulse Rate [Pulse Oximeter] 69 Respiratory Rate 18 Blood Pressure 146/106 H Blood Pressure [Right Upper Arm] 146/106 H Pulse Oximetry 96 95 96 Oxygen Delivery Method Room Air 03/08/24 14:45 03/08/24 15:00 03/08/24 15:06 Temperature Pulse Rate 64 64 73 Pulse Rate [Pulse Oximeter] Respiratory Rate Blood Pressure 156/86 H Blood Pressure [Right Upper Arm] Pulse Oximetry 95 95 96 Oxygen Delivery Method 03/08/24 15:06 03/08/24 15:07 03/08/24 15:15 Temperature Pulse Rate 73 72 76 Pulse Rate [Pulse Oximeter] Respiratory Rate Blood Pressure 156/86 H Blood Pressure [Right Upper Arm] Pulse Oximetry 96 94 93 Oxygen Delivery Method 03/08/24 15:30 03/08/24 15:32 03/08/24 15:45 Temperature Pulse Rate 64 69 72 Pulse Rate [Pulse Oximeter] Respiratory Rate Blood Pressure 152/109 H Blood Pressure [Right Upper Arm] Pulse Oximetry 95 95 96 Oxygen Delivery Method Course Vital Signs Vital signs: Initial Vital Signs Temperature 96.5 F L 03/08/24 14:35 Temperature Source Temporal Artery Scan 03/08/24 14:35 Pulse Rate 69 03/08/24 14:35 Respiratory Rate 18 03/08/24 14:35 Blood Pressure 146/106 H 03/08/24 14:35 Blood Pressure Mean 119 H 03/08/24 14:35 Blood Pressure Position Supine 03/08/24 14:35 Pulse Oximetry 96 03/08/24 14:35 Oxygen Delivery Method Room Air 03/08/24 14:35 Vital Signs Temperature 96.5 F L 03/08/24 14:35 Pulse Rate 69 03/08/24 14:35 Respiratory Rate 18 03/08/24 14:35 Blood Pressure 146/106 H 03/08/24 14:35 Pulse Oximetry 96 03/08/24 14:35 Oxygen Delivery Method Room Air 03/08/24 14:35 Temperature 96.5 F L 03/08/24 14:35 Pulse Rate 72 03/08/24 15:45 Respiratory Rate 18 03/08/24 14:35 Blood Pressure 152/109 H 03/08/24 15:32 Pulse Oximetry 96 03/08/24 15:45 Oxygen Delivery Method Room Air 03/08/24 14:35 Medications Administered Medications: Generic Name Dose Route Start Last Admin Trade Name Freq PRN Reason Stop Dose Admin Heparin Sodium/Dextrose 25,000 unit in 500 mls @ 0 mls/hr 03/08/24 16:15 03/08/24 16:22 Heparin IV 1,000 unit/hr .Q0M RADHA 20 mls/hr Administration Protocol Per Protocol Discontinued Medications Generic Name Dose Route Start Last Admin Trade Name Noelle PRN Reason Stop Dose Admin Aspirin 324 mg 03/08/24 15:30 03/08/24 15:33 Aspirin 81 Mg Tab.Chew PO 03/08/24 15:31 324 mg ONCE ONE Administration Heparin Sodium (Porcine) 4,000 unit 03/08/24 16:05 03/08/24 16:21 Heparin 5,000 Unit/0.5 Ml Inj IVP 03/08/24 16:06 4,000 unit ONCE ONE Administration MDM - Chest Pain MDM Narrative Medical decision making narrative: Patient is a 84-year-old male presenting for chest pain. The differential diagnosis of chest pain is broad and includes common etiologies such as musculoskeletal strain, GERD, pneumonia, etc. More serious etiologies considered include PE, coronary artery disease, pneumothorax, aortic dissection, aortic aneurysm. At this time considering he is otherwise feeling well and asymptomatic pneumothorax, aortic dissection, aortic aneurysm, PE seems very unlikely. Will do chest x-ray look for signs pneumonia pneumothorax though. This could be an episode of ACS says order a resolved on its own. Unlikely to be a current STEMI. Will order CBC, BMP, COVID/flu, troponin, EKG, magnesium. Patient point of care troponin 1.13. He is otherwise stable will wait for lab the troponin before contacting Cardiology. Patient was given a dose of aspirin. CBC shows no concerning abnormalities. CMP shows no concerning abnormalities. COVID and flu negative. Chest x-ray reviewed myself and radiologist shows no concerning findings. Labs drawn troponin came back at 1.47. Since his home performance laborer just is through [facility] they were paged. They were unable to take transfer though because they are only open to trauma transfers at this time. I was able to speak to his home performance laborer though, Dr. Rivera. I informed him of the results of his EKG and lab work informed him that he has inverted T-waves in II, III, AVF. He states based on the most recent EKG they have on file only slight inversions were noted in lead III. These other inversions appear to be new and are concerning that he has been having myocardial infarctions over the weekend. He does recommend transferring and patient will be transferred to [facility] who has beds available within 8 hours. I spoke to Dr. Vega who was also believes the patient needs to be transferred. Patient will be started on heparin. Patient is agreeable to this plan. Is not having any chest pain at this time so nitro drip is not necessary. Lab Data Labs: Lab Results 03/08/24 03/08/24 03/08/24 Range/Units 14:43 14:43 14:43 WBC 11.30 H Cancelled (4.50-11.00) K/uL RBC 4.40 Cancelled (4.30-5.90) m/uL Hgb 14.4 (13.5-17.5) gm/dL Hct (37.0-53.0) % MCV (80-100) fL MCH (26-34) pg MCHC (32-36) gm/dL RDW Coeff of Dominga (11.5-15.5) % Plt Count (140-440) K/uL Neut % (Auto) (42.0-72.0) % Lymph % (Auto) (20-44) % [place] % (Auto) (0.0-11.0) % Eos % (Auto) (0.0-7.0) % Baso % (Auto) (0.0-3.0) % Neut # (Auto) (1.7-7.0) K/uL Lymph # (Auto) (0.90-2.90) K/uL [place] # (Auto) (0.00-0.90) K/UL Eos # (Auto) (0.00-0.50) K/uL Baso # (Auto) (0.00-0.30) K/uL Abs Immat Gran (auto) (0.00-0.30) K/uL Imm/Tot Granulo (auto) % INR (0.91-1.10) APTT (23-33) Seconds Sodium (135-149) mmol/L Potassium (3.6-5.1) mmol/L Chloride (96-114) mmol/L Carbon Dioxide (20-32) mmol/L Anion Gap (7-15) mEq/L BUN (7-30) mg/dL Creatinine (0.5-1.5) mg/dL Estimated Creat Clear Estimated GFR ml/min Glucose (60-115) mg/dL Calcium (8.4-10.6) mg/dL Magnesium (1.5-2.6) mg/dL Troponin I (0.01-0.04) ng/mL SARS-CoV-2 (PCR) (Negative) Influenza Type A (PCR) (Negative) Influenza Type B (PCR) (Negative) POC Troponin I (0.01-0.04) ng/ml 03/08/24 03/08/24 03/08/24 Range/Units 14:43 14:43 14:43 WBC (4.50-11.00) K/uL RBC (4.30-5.90) m/uL Hgb Cancelled (13.5-17.5) gm/dL Hct 43.4 Cancelled (37.0-53.0) % MCV 99 Cancelled (80-100) fL MCH 33 (26-34) pg MCHC (32-36) gm/dL RDW Coeff of Dominga (11.5-15.5) % Plt Count (140-440) K/uL Neut % (Auto) (42.0-72.0) % Lymph % (Auto) (20-44) % [place] % (Auto) (0.0-11.0) % Eos % (Auto) (0.0-7.0) % Baso % (Auto) (0.0-3.0) % Neut # (Auto) (1.7-7.0) K/uL Lymph # (Auto) (0.90-2.90) K/uL [place] # (Auto) (0.00-0.90) K/UL Eos # (Auto) (0.00-0.50) K/uL Baso # (Auto) (0.00-0.30) K/uL Abs Immat Gran (auto) (0.00-0.30) K/uL Imm/Tot Granulo (auto) % INR (0.91-1.10) APTT (23-33) Seconds Sodium (135-149) mmol/L Potassium (3.6-5.1) mmol/L Chloride (96-114) mmol/L Carbon Dioxide (20-32) mmol/L Anion Gap (7-15) mEq/L BUN (7-30) mg/dL Creatinine (0.5-1.5) mg/dL Estimated Creat Clear Estimated GFR ml/min Glucose (60-115) mg/dL Calcium (8.4-10.6) mg/dL Magnesium (1.5-2.6) mg/dL Troponin I (0.01-0.04) ng/mL SARS-CoV-2 (PCR) (Negative) Influenza Type A (PCR) (Negative) Influenza Type B (PCR) (Negative) POC Troponin I (0.01-0.04) ng/ml 03/08/24 03/08/24 03/08/24 Range/Units 14:43 14:43 14:43 WBC (4.50-11.00) K/uL RBC (4.30-5.90) m/uL Hgb (13.5-17.5) gm/dL Hct (37.0-53.0) % MCV (80-100) fL MCH Cancelled (26-34) pg MCHC 33 Cancelled (32-36) gm/dL RDW Coeff of Dominga 12.4 (11.5-15.5) % Plt Count 205 Cancelled (140-440) K/uL Neut % (Auto) 63.4 (42.0-72.0) % Lymph % (Auto) 25.0 (20-44) % [place] % (Auto) 9.5 (0.0-11.0) % Eos % (Auto) 1.5 (0.0-7.0) % Baso % (Auto) 0.4 (0.0-3.0) % Neut # (Auto) 7.20 H (1.7-7.0) K/uL Lymph # (Auto) 2.80 (0.90-2.90) K/uL [place] # (Auto) 1.10 H (0.00-0.90) K/UL Eos # (Auto) 0.20 (0.00-0.50) K/uL Baso # (Auto) 0.00 (0.00-0.30) K/uL Abs Immat Gran (auto) 0.00 (0.00-0.30) K/uL Imm/Tot Granulo (auto) 0.2 % INR 1.34 H (0.91-1.10) APTT 42 H (23-33) Seconds Sodium 139 (135-149) mmol/L Potassium 3.8 (3.6-5.1) mmol/L Chloride 108 (96-114) mmol/L Carbon Dioxide 23 (20-32) mmol/L Anion Gap 8 (7-15) mEq/L BUN 29 (7-30) mg/dL Creatinine 1.1 (0.5-1.5) mg/dL Estimated Creat Clear 60.28 Estimated GFR 66 ml/min Glucose 157 H (60-115) mg/dL Calcium 9.4 (8.4-10.6) mg/dL Magnesium 2.4 (1.5-2.6) mg/dL Troponin I 1.47 H* (0.01-0.04) ng/mL SARS-CoV-2 (PCR) Negative SARS-CoV-2 (Negative) Influenza Type A (PCR) Negative PCR FLU A (Negative) Influenza Type B (PCR) Negative PCR FLU B (Negative) POC Troponin I 1.13 H (0.01-0.04) ng/ml Imaging Data Chest x-ray: Attestation: I have reviewed the pertinent imaging results. Radiologist's impression: Cardiovascular and mediastinum: Normal heart size with aortic tortuosity and atherosclerotic calcification. Left-sided dual lead pacemaker with leads overlying the expected right atrium and right ventricle. Lungs and pleural spaces: Lungs are clear. No sign of infiltrate or mass. No sign of pleural effusion. No pneumothorax. Bones and soft tissues: No significant findings. Dictated by Dariel Foss MD @ 03/08/2024 3:09:53 PM ECG Data Attestation: I personally reviewed and interpreted this ECG as follows: Prior ECG tracings: not available for review Interpretation: Sinus rhythm rate 73 beats per minute, first-degree AV block, PVC seen. There are T-wave inversions most notably seen in leads II, III, AVF and the lateral leads V4 through V6 Critical Care Time Critical Care Time Critical Care Time: Yes Attestation: The patient required my highest level preparedness to intervene emergently and I personally spent this critical care time directly and personally managing the patient. This critical care time included: Obtaining a history; Examining the patient; Pulse oximetry; Ordering and reviewing of studies; Arranging urgent treatment with development of a management plan; Evaluation of patients response to treatment; Frequent reassessment discussions with other providers. This critical care time was performed to assess and manage the high probability of imminent life-threatening deterioration that could result in multiorgan failure. It was exclusive of separate billable procedures and treating other patients and teaching time. Total Critical Care Time in Minutes: 35 Discharge Plan Discharge Clinical Impression: Non-STEMI (non-ST elevated myocardial infarction) Patient Disposition: Felicity Alcantara Condition: Stable Prescriptions: No Action aspirin 81 mg tablet,delayed release (DR/EC) 81 mg PO QDAY cholecalciferol (vitamin D3) 25 mcg (1,000 unit) capsule 25 mcg PO QDAY multivitamin Tablet 1 tab PO QDAY amlodipine 5 mg tablet 5 mg PO BID Qty: 180 2RF Follow Up/Referrals: Idania Iraheta MD [Primary Care Provider] - Stand Alone Forms: [employer] Info Instructions
[2024-03-08 14:58] LABS: Basophils Percent Auto 0.4 % (0.0-3.0); Eosinophils Percent Auto 1.5 % (0.0-7.0); Hematocrit 43.4 % (37.0-53.0); Hemoglobin* 14.4 gm/dL (13.5-17.5); Immature Granulocytes Pct Auto 0.2 %; Mean Corpuscular HGB Conc 33 gm/dL (32-36); Mean Corpuscular Hemoglobin 33 pg (26-34); Mean Corpuscular Volume 99 fL (80-100); Monocytes Percent Auto 9.5 % (0.0-11.0); Neutrophils Percent Auto 63.4 % (42.0-72.0); Platelet Count* 205 K/uL (140-440); RDW Coefficient of Variation % 12.4 % (11.5-15.5)
[2024-03-08 14:59] LABS: Slide Review Reflex No
--- OUTSIDE RECORDS SUMMARY | 2024-03-08 15:04 | XMS_ITS | Referral Summary ---
Author Organization [employer] Address [address] [place] [phone] Phone Care Team Providers Care Puppy Trainer Name Role Phone Idania Iraheta MD Primary Care Provider Rigoberto Rivera MD Unavailable Source Comments [facility]er[employer] is fully rolled out on [facility]. Last update 12/08/08.[facility] Encounters Date Type Department Care Team Description 03/08/2024 Telephone [facility] [address] [place] [id number] Yasmin Ramachandran RN 03/08/2024 Nurse Triage [facility] [address] [place] [phone] Martha Smith, NILSON Chest Pain 01/19/2024 8:00 AM CDT Nurse Only [facility] [address] [place] [id number] Sánchez Simeon, JENNA Cardiac pacemaker in situ Discharge Disposition: Discharged to home or self care from Last 3 Months Allergies Active Allergy [...] ATRIAL FIBRILLATION). 30 tablet 5 08/28/2022 Active Active Problems Problem Noted Date Diagnosed Date Sinus node dysfunction ([facility]) 08/15/2015 Overview: 1999 - Pacemaker implanted Dual [...] leads from 1999. PAF (paroxysmal atrial fibrillation) ([facility]) 0 08/15/2015 Overview: 2004 - Ablation 2004 - Ablation 10/14-: PAF [...] Care Team (Late st Contact Info) Description 04/19/2024 8:00 AM CDT Nurse [facility] [address] [address] Scheduled Discharge Disposition: Discharged to home or self care Procedures Procedure Name Priority Date/Time Associated Diagnosis Comments EVALUATE PACEMAKER/ ICM REMOTE Routine 01/19/2024 3:09 PM CDT Cardiac pacemaker in situ from Last 3 Months Results * EVALUATE PACEMAKER/ ICM REMOTE (01/19/2024 3:09 PM CDT) Sánchez WEST CARDIAC DEVICE ORDER [facility] PACEART from Last 3 Months Care Teams Puppy Trainer Relationship Specialty Start Date End Date Idania Iraheta MD [address] [place] [address] PCP - General Outside Provider 08/15/15 Rigoberto Rivera MD [address] [place] [address] PCP - Cardiology Cardiology 04/01/17
--- OUTSIDE RECORDS SUMMARY | 2024-03-08 15:04 | XMS_ITS | Clinical Summary ---
Author Organization [facility] Address [place], [place] [address] Care Team Providers Care Divorce Mediator Name Role Phone Raoul Rowe MD Primary [...] 08/16/2006 Overview: s/p radiofrequency ablation 2003 and 2004 Social History Tobacco Use Types Packs/Day Years [...] 1 - PCV) 02/24/2004 COVID-19 vaccine series (2022- season) 2023 02/03/2023, 03/24/2022, 10/22/2021, Additional history [...] 9:47 AM 01/16/2005 9:51 AM Care Teams Divorce Mediator Relationship Specialty Start Date End Date Raoul Rowe MD [address] [place] [address] PCP - General 11/18/12
--- OUTSIDE RECORDS SUMMARY | 2024-03-08 15:04 | XMS_ITS | Encounter Summary ---
Author Organization [facility] Address [facility] [place] [address] Care Team Providers Care Wad Compressor Operator Adjuster Name Role Phone Nico Arnold MD Primary Care Provider [phone] Raoul Rowe MD Primary Care Provider Idania Iraheta MD Primary Care Provider [phone] Encounter Details Date Type Department Care Team (Late st Contact Info) Description 08/17/[address] [place] [address] Nico Arnold MD [facility] [address] [place] [address] [facility] PACEMAKER PROCEDURE NOTE (Primary Dx) Social History [...] as of this encounter Visit Diagnoses Diagnosis [facility] PACEM[facility]ER PROCEDURE NOTE- Primary documented in this encounter Care Teams Wad Compressor Operator Adjuster Relationship Specialty Start Date End Date Nico Arnold MD [facility] [address] [place] [address] PCP - General 08/20/01 04/22/12 Raoul Rowe MD [facility] [address] [place] [address] PCP - General 04/23/12 06/29/14 Idania Iraheta MD [facility] [address] [place] [address] PCP - General Internal Medicine 06/30/14 documented as of this encounter
--- OUTSIDE RECORDS SUMMARY | 2024-03-08 15:04 | XMS_ITS | Referral Summary ---
Author Organization [facility] Address [address] [place] [address]. [place] [address] Care Team Providers Care Performance Improvement Coordinator Name Role Phone Idania Iraheta MD Primary [...] Comments Blood Pressure 151/72 06/10/2018 7:47 AM EDGER OPERATOR Pulse 82 06/08/2018 3:00 PM EDGER OPERATOR Temperature 35.7 ??C (96.3 ??F) 06/10/2018 7:47 AM CS T Respiratory Rate 16 06/10/2018 9:00 AM EDGER OPERATOR Oxygen Saturation 94% 06/10/2018 7:47 AM EDGER OPERATOR Inhaled Oxygen Concentration - - Weight 92.1 kg (203 lb) 06/07/2018 6:11 AM EDGER OPERATOR Height 193 cm (6' 4) 05/28/2018 12:00 PM EDGER OPERATOR pe r H & P Body Mass Index 24.71 05/28/2018 12:00 PM EDGER OPERATOR Plan of Treatment Not on file Medical Devices Implanted Type Area Atmospheric Physics Professor Device Identifier Shelf Expiration Date Model / Serial / Lot Bone Cement Radiopaque Simplex P Speedset 6192-1-001 Implanted:Qty: 1 on 06/07/2018 by Kermit Dickens MD at [facility] Cement, Bone Left: Knee [employer] 10/04/2019 6192-1-001 / / [id number] Bone Cement Simplex Speed Set Implanted:Qty: 2 on 04/29/2012 by Kermit Dickens MD at [facility] Right: Knee [employer] 11/03/2013 6192-1-001 / / [id number] Imp Comp Patella Yamileth Ii 9x32mm [id number] Implanted:Qty: 1 on 04/29/2012 by Kermit Dickens MD at [facility] Right: Knee [employer] 02/03/2022 [id number] / / [id number] Imp Comp Femoral Yamileth Ii Cr Oxin Sz 6 Rt [id number] Implanted:Qty: 1 on 04/29/2012 by Kermit Dickens MD at [facility] Right: Knee [employer] 08/06/2021 [id number] / / [id number] Imp Baseplate Tibial Yamileth Ii Sz 7 Rt Ti [id number] Implanted:Qty: 1 on 04/29/2012 by Kermit Dickens MD at [facility] Right: Knee [employer] 08/06/2021 [id number] / / [id number] Size 7-8 13mm Legion Cr Xlpe High Flexion Articular Insert Implanted:Qty: 1 on 04/29/2012 by Kermit Dickens MD at [facility] Right: Knee [employer] 07/06/2020 [id number] / / [id number] Imp Wing Arthrex Bio-Swivelock 5.5mm Ar-2323bcc Implanted:Qty: 1 on 07/11/2013 by Kermit Dickens MD at [facility] Left: Shoulder [employer] 08/05/2013 AR-2323BCC / / [id number] Imp Wing Arthrex Bio-Swivelock 4.75mm Ar-2324bcm Implanted:Qty: 1 on 07/11/2013 by Kermit Dickens MD at [facility] Left: Shoulder [employer] 01/02/2015 AR-2324BCM / / [id number] Wire Joseph 0.054x4 Implanted:Qty: 1 on 07/17/2014 by Sarthak Pichardo MD at [facility] Left: Toe G SOURCE 78.2040 / / [id number] Wire Joseph 0.045x4 Implanted:Qty: 1 on 07/17/2014 by Sarthak Pichardo MD at [facility] Left: Toe G SOURCE 78.2020 / / 4l Femur Cr Implanted:Qty: 1 on 06/07/2018 by Kermit Dickens MD at [facility] Left: Knee [employer] 01/02/2021 90-SRK-[id number] / / [id number] Size 5 Tibia Tray Implanted:Qty: 1 on 06/07/2018 by Kermit Dickens MD at [facility] Left: Knee [employer] 07/17/2021 90-SRK-[id number] 00 / / [id number] Patella 33mm Implanted:Qty: 1 on 06/07/2018 by Kermit Dickens MD at [facility] Left: Knee [employer] 03/12/2021 90-SRK-[id number] 00 / / [id number] Insert Cr 4 16mm Implanted:Qty: 1 on 06/07/2018 by Kermit Dickens MD at [facility] Left: Knee [employer] 06/07/2021 90-SRK-1104 16 / / [id number] Advance Directives For more information, please contact: [phone] Documents on File Type Date Recorded Patient Balance Engineer Expl anation Advance Directives and Living Will [...] Agents on File Name Relationship Healthcare Agent [facility] p Communication Allisonruslan Jaegerrohan Spouse Health Care Agent Jacob Robertson Relative First Alternate Health Care Agent Domenico Abraham Second Alternate Health Care Agent Care Teams Performance Improvement Coordinator Relationship Specialty Start Date End Date Idania Iraheta MD [address] [address] PCP - General Internal Medicine 06/30/14
--- OUTSIDE RECORDS SUMMARY | 2024-03-08 15:04 | XMS_ITS | Clinical Summary ---
Author Organization [employer] Address [address] [place] [address] Phone Care Team Providers Care Seismograph Operator Name Role Phone Idania Iraheta MD Primary Care Provider Rigoberto Rivera MD Unavailable Source Comments Moxsie is fully rolled out on [employer]. Last update 12/08/08.[employer] Allergies Active Allergy Reactions Criticality Noted Date [...] Noted Date Diagnosed Date Sinus node dysfunction ([facility]) 08/15/2015 Overview: 1999 - Pacemaker implanted Dual [...] Telephone [facility] [address] [place] [address]57 Yasmin Ramachandran RN 03/08/2024 Nurse Triage [facility] [address] [place] [address] Martha Smith RN Chest Pain 01/19/2024 8:00 AM CDT Nurse Only [facility] [address] [place] [address] Sánchez Simeon MBBS Cardiac pacemaker in situ Discharge Disposition: Discharged to home or self care from Last 3 Months Family History Medical [...] Only [facility] [address] [place] [phone] Scheduled Discharge Disposition: Discharged to home or self care Health Maintenance Due Date Last Done Comments Dental Oral Exam 1939 Dental Prophylaxis 1939 Dental X-Ray: Bitewings 1939 Periodontal Maintenance 1953 Medicare Annual Wellness 1957 HEALTH MAINTENANCE PROTOCOL 1958 Osteoporosis Screening (Dexa Scan) 02/24/2004 Imm: Pneumonia greater than 65 years (2 of 2 - PCV) 04/09/2007 04/09/2006 PREVENTATIVE VISIT 04/09/2007 04/09/2006, 04/03/2004 MEDICATION REFILL PROTOCOL 12/09/2019 12/08/2018 Imm: DTaP/Tdap (3 - Td or Tdap) 11/14/2020 05/17/2020, 2009 Imm: Flu (#1) 03/06/2024 04/07/2023, 03/06, 05/07/2021, Additional history exists Imm: Zoster Completed 08/13/2021, 04/02/2021 Imm: COVID-19 Completed 11/09/2023, 05/06, 02/03/2023, Additional history exists Imm: HPV Aged Out No longer eligi ble based on patient's age to complete this topic Imm: HepA Aged Out No longer eligi ble based on patient's age to complete this topic Imm: HepB Aged Out No longer eligi ble based on patient's age to complete this topic Imm: Hib Aged Out No longer eligi ble based on patient's age to complete this topic Imm: Meningitis Aged Out No longer el igible based on patient's age to complete this topic Procedures Procedure Name Priority Date/Time Associated Diagnosis Comments EVALUATE PACEMAKER/ ICM REMOTE Routine 01/19/2024 3:09 PM CDT Cardiac pacemaker in situ from Last 3 Months Results * EVALUATE PACEMAKER/ ICM REMOTE (01/19/2024 3:09 PM CDT) Sánchez GARCIABS CARDIAC DEVICE ORDER GEETA [facility]ACE[facility] from Last 3 Months Care Teams Seismograph Operator Relationship Specialty Start Date End Date Idania Iraheta MD [address] [place] [address] PCP - General Outside Provider 08/15/15 Rigoberto Rivera MD [address] [place] [address] PCP - Cardiology Cardiology 04/01/17
--- OUTSIDE RECORDS SUMMARY | 2024-03-08 15:04 | XMS_ITS | Encounter Summary ---
Author Organization Formerly Named [facility] Address [address] [place] [address] Phone Care Team Providers Care Quitline Counselor Name Role Phone Idania Iraheta MD Primary Care Provider Rigoberto Rivera MD Unavailable Encounter Details Date Type Department Care Team (Late st Contact Info) Description 03/08/2024 Telephone [facility] [address] [place] [address] Yasmin Ramachandran RN [address] [place] [address] Social History Tobacco Use Types Packs/Day Years [...] as of this encounter Miscellaneous Notes * Telephone Encounter - Yasmin Ramachandran RN - 03/08/2024 12:48 PM CDT I called the patient as requested by patient to documented in this encounter Plan of Treatment Upcoming Encounters Date Type Department Care Team (Late st Contact Info) Description 04/19/2024 8:00 AM CDT Nurse Only [facility] [address] [place] [address] [phone] Scheduled Discharge Disposition: Discharged to home or self care documented as of this encounter Visit Diagnoses Not on filedocumented in this encounter Care Teams Quitline Counselor Relationship Specialty Start Date End Date Idania Iraheta MD [address] [place] [address] PCP - General Outside Provider 08/15/15 Rigoberto Rivera MD [address] [place] [address] PCP - Cardiology Cardiology 04/01/17 documented as of this encounter
--- OUTSIDE RECORDS SUMMARY | 2024-03-08 15:04 | XMS_ITS | Encounter Summary ---
Author Organization [place] Address [facility] [place] [address] Care Team Providers Care Traffic Chief Name Role Phone Nico Arnold MD Primary Care Provider [phone] Raoul Rowe MD Primary Care Provider Idania Iraheta MD Primary Care Provider [phone] Encounter Details Date Type Department Care Team (Late st Contact Info) Description 01/20/[address] [place] [address] Nico Arnold MD [facility] [address] [place] [address] MARK NW POST OP NOTE, ANESTHESIA ASSESSMENT [...] this encounter Visit Diagnoses Diagnosis MARK NW POST OP NOTE, ANESTHESIA ASSESSMENT- Primary documented in this encounter Care Teams Traffic Chief Relationship Specialty Start Date End Date Nico Arnold MD [facility] [address] [place] [address] PCP - General 08/20/01 04/22/12 Raoul Rowe MD [facility] [address] [place] [address] PCP - General 04/23/12 06/29/14 Idania Iraheta MD [facility] [address] [place] [address] PCP - General Internal Medicine 06/30/14 documented as of this encounter
--- OUTSIDE RECORDS SUMMARY | 2024-03-08 15:04 | XMS_ITS | Encounter Summary ---
Author Organization [facility] Address [address] [place] [address] Phone Care Team Providers Care Transportation Specialist Name Role Phone Idania Iraheta MD Primary Care Provider [phone] Rigoberto Rivera MD Unavailable Reason for Visit * Reason Onset Date Comments Chest Pain 03/08/2024 Encounter Details Date Type Department Care Team (Late st Contact Info) Description 03/08/2024 Nurse Triage [facility] [address] [place] [address] Martha Smith, RN [address] [place] [address] Chest Pain Social History Tobacco Use Types Packs/Day Years [...] encounter Miscellaneous Notes * Telephone Encounter - Martha Smith RN - 03/08/2024 12:07 PM CDT D: Patient calling, I've had 2 episodes of pain in the center of my chest, pain and tingling in both arm from shoulders to fingers. I was out of rhythm and went back into rhythm at 0200 or earlier., denies shortness of breath at that time, denies diaphoresis, not currently having symptoms A: Care advice to go to ED, spoke with ANA in clinic, left message for nurse to call patient back R: I still would like to speak with Dr Rivera. P: Waiting for call back from Cardiology, will go to ED if symptoms return Reason for Disposition [1] Chest pain (or angina) comes and goes AND [2] is happening more often (increasing in frequency) or getting worse (increasing in severity) (Exception: Chest pains that last only a few seconds.) Answer Assessment - Initial Assessment Questions 1. LOCATION: Where does it hurt? Mid sternal 2. RADIATION: Does the pain go anywhere else? (e.g., into neck, jaw, arms, back) Bilateral arms 3. ONSET: When did the chest pain begin? (Minutes, hours or days) Thursday evening and last night 4. PATTERN: Does the pain come and go, or has it been constant since it started? Does it get worse with exertion? Intermittent 5. DURATION: How long does it last (e.g., seconds, minutes, hours) 1 hour 6. SEVERITY: How bad is the pain? (e.g., Scale 1-10; mild, moderate, or severe) - MILD (1-3): Doesn't interfere with normal activities. - MODERATE (4-7): Interferes with normal activities or awakens from sleep. - SEVERE (8-10): Excruciating pain, unable to do any normal activities. 11/12 7. CARDIAC RISK FACTORS: Do you have any history of heart problems or risk factors for heart disease? (e.g., angina, prior heart attack; diabetes, high blood pressure, high cholesterol, smoker, or strong family history of heart disease) Pacer 8. PULMONARY RISK FACTORS: Do you have any history of lung disease? (e.g., blood clots in lung, asthma, emphysema, control pills) denies 9. CAUSE: What do you think is causing the chest pain? Abnormal rhythm 10. OTHER SYMPTOMS: Do you have any other symptoms? (e.g., dizziness, nausea, vomiting, sweating,fever, difficulty breathing, cough) denies 11. : Is there any chance you are ? When was your last menstrual period? na Protocols used: Chest [id number] documented in this encounter Plan of Treatment Upcoming Encounters Date Type Department Care Team (Late st Contact Info) Description 04/19/2024 8:00 AM CDT Nurse Only [facility] Clinic [address] [place] [address] Scheduled Discharge Disposition: Discharged to home or self care documented as of this encounter Visit Diagnoses Not on filedocumented in this encounter Care Teams Transportation Specialist Relationship Specialty Start Date End Date Idania Iraheta MD [address] [place] [address] PCP - General Outside Provider 08/15/15 Rigoberto Rivera MD [address] [place] [address] PCP - Cardiology Cardiology 04/01/17 documented as of this encounter
--- OUTSIDE RECORDS SUMMARY | 2024-03-08 15:04 | XMS_ITS | Encounter Summary ---
Author Organization [place] Address [facility] [place] [address] Care Team Providers Care Compound Finisher Name Role Phone Idania Iraheta MD Primary Care Provider Encounter Details Date Type Department Care Team (Late st Contact Info) Description 05/17/2018 [facility] [address] [place] [phone] Kermit Dickens MD [facility] [address] [facility] [address] [place] [address] Pre-operative laboratory examination (Primary Dx) Social History [...] Resist/Sens S. aureus PCR (05/20/2018 10:48 AM REPAIRER WELDING EQUIPMENT) Specimen Description Nares 05/20/2018 5:06 PM REPAIRER WELDING EQUIPMENT [facility] Methicillin Resist/Sens S. aureus PCR Negative NEG^Negat jay 05/21/2018 12:22 AM REPAIRER WELDING EQUIPMENT [facility] Comment: MRSA Negative: SA Negative ??MRSA and Staphylococcus aureus target DNA not detected, presumed negative for MRSA and SA colonization or the number of bacteria present may be below the limit of detection for the assay. FDA approved assay performed using [employer] GeneXpert(R) real-time PCR. Nasal structure (body structure) 05/20/2018 10:48 AM REPAIRER WELDING EQUIPMENT 05/20/2018 5:07 PM REPAIRER WELDING EQUIPMENT Kermit Dickens MD LAB - MICRO GENERAL ORDERABLES [facility] [address] [place], [place] [phone] [place] [address] [phone] documented in this encounter Visit Diagnoses Diagnosis Pre-operative laboratory examination- Primary Pre-procedural laboratory examination documented in this encounter Care Teams Compound Finisher Relationship Specialty Start Date End Date Idania Iraheta MD [facility] - [address] [address] PCP - General Internal Medicine 06/30/14 documented as of this encounter
--- OUTSIDE RECORDS SUMMARY | 2024-03-08 15:04 | XMS_ITS | Clinical Summary ---
Author Organization [employer] Address [address] [place] [address]. [place] [address] Care Team Providers Care Chemistry Technician Name Role Phone Idania Iraheta MD Primary [...] Comments Blood Pressure 151/72 06/10/2018 7:47 AM FRUIT OR NUT FARM WORKER Pulse 82 06/08/2018 3:00 PM FRUIT OR NUT FARM WORKER Temperature 35.7 ??C (96.3 ??F) 06/10/2018 7:47 AM CS T Respiratory Rate 16 06/10/2018 9:00 AM FRUIT OR NUT FARM WORKER Oxygen Saturation 94% 06/10/2018 7:47 AM FRUIT OR NUT FARM WORKER Inhaled Oxygen Concentration - - Weight 92.1 kg (203 lb) 06/07/2018 6:11 AM FRUIT OR NUT FARM WORKER Height 193 cm (6' 4) 05/28/2018 12:00 PM FRUIT OR NUT FARM WORKER pe r H & P Body Mass Index 24.71 05/28/2018 12:00 PM FRUIT OR NUT FARM WORKER Plan of Treatment Not on file Medical Devices Implanted Type Area Marbleizer Device Identifier Shelf Expiration Date Model / Serial / Lot Bone Cement Radiopaque Simplex P Speedset 6192-1-001 Implanted:Qty: 1 on 06/07/2018 by Kermit Dickens MD at [facility] Cement, Bone Left: Knee [employer] 10/04/2019 6192-1-001 / / [id number] Bone Cement Simplex Speed Set Implanted:Qty: 2 on 04/29/2012 by Kermit Dickens MD at [facility] Right: Knee [employer] 11/03/2013 6192-1-001 / / [id number] Imp Comp Patella Yamileth Ii 9x32mm [id number] Implanted:Qty: 1 on 04/29/2012 by Kermit Dickens MD at [facility] Right: Knee [employer]-R 02/03/2022 [id number] / / [id number] Imp Comp Femoral Yamileth Ii Cr Oxin Sz 6 Rt [id number] Implanted:Qty: 1 on 04/29/2012 by Kermit Dickens MD at [facility] Right: Knee [employer] 08/06/2021 [id number] / / [id number] Imp Baseplate Tibial Yamileth Ii Sz 7 Rt Ti [id number] Implanted:Qty: 1 on 04/29/2012 by Kermit Dickens MD at [facility] Right: Knee [employer]R 08/06/2021 [id number] / / [id number] Size 7-8 13mm Legion Cr Xlpe High Flexion Articular Insert Implanted:Qty: 1 on 04/29/2012 by Kermit Dickens MD at [facility] Right: Knee [employer] 07/06/2020 [id number] / / [id number] Imp [place] Arthrex Bio-Swivelock 5.5mm Ar-2323bcc Implanted:Qty: 1 on 07/11/2013 by Kermit Dickens MD at [facility] Left: Shoulder [employer] 08/05/2013 AR-2323BCC / / [id number] Imp [place] Arthrex Bio-Swivelock 4.75mm Ar-2324bcm Implanted:Qty: 1 on 07/11/2013 by Kermit Dickens MD at [facility] Left: Shoulder [employer] 01/02/2015 AR-2324BCM / / [id number] Wire Joseph 0.054x4 Implanted:Qty: 1 on 07/17/2014 by Sarthak Pichardo MD at [facility] Left: Toe G SOURCE 78.2040 / / [id number] Wire Joseph 0.045x4 Implanted:Qty: 1 on 07/17/2014 by Sarthak Pichardo MD at [facility] Left: Toe G SOURCE 78.2020 / / 4l Femur Cr Implanted:Qty: 1 on 06/07/2018 by Kermit Dickens MD at [facility] Left: Knee [employer] 01/02/2021 90-SRK-3124 00 / / [id number] Size 5 Tibia Tray Implanted:Qty: 1 on 06/07/2018 by Kermit Dickens MD at [facility] Left: Knee [employer] 07/17/2021 90-SRK-2005 00 / / [id number] Patella 33mm Implanted:Qty: 1 on 06/07/2018 by Kermit Dickens MD at [facility] Left: Knee [employer] 03/12/2021 90-SRK-4203 00 / / [id number] Insert Cr 4 16mm Implanted:Qty: 1 on 06/07/2018 by Kermit Dickens MD at [facility] Left: Knee [employer] 06/07/2021 90-SRK-1104 16 / / [id number] Advance Directives For more information, please contact: [phone] Documents on File Type Date Recorded Patient Cilnical Scientist Expl anation Advance Directives and Living Will [...] Agents on File Name Relationship Healthcare Agent [facility] Communication Allison Ailyn Spouse Health Care Agent Jacob Robertson Relative First Alternate Health Care Agent Domenico Robertson Son Second Alternate Health Care Agent Care Teams Chemistry Technician Relationship Specialty Start Date End Date Idania Iraheta MD [facility] & [address] [address] PCP - General Internal Medicine 06/30/14
--- OUTSIDE RECORDS SUMMARY | 2024-03-08 15:04 | XMS_ITS | Encounter Summary ---
Author Organization [facility] Address [address] [place] [address] Phone Care Team Providers Care Draw Bench Operator Name Role Phone Idania Iraheta MD Primary Care Provider [phone] Rigoberto Rivera MD Unavailable Reason for Visit * Reason Comments Cardiac Device Evaluation Remote pacemak er check Encounter Details Date Type Department Care Team (Late st Contact Info) Description 01/19/2024 8:00 AM CDT Nurse Only [facility] [address] [phone] Sánchez Simeon, JENNA [address] [phone] Cardiac pacemaker in situ Discharge Disposition: Discharged to home or self care Social History Tobacco Use Types Packs/Day Years [...] Notes * Result Encounter Note - Susana Hernandez, NILSON - 01/19/2024 8:00 AM CDT Today's remote pacemaker transmission is reviewed. Since the last rep check in [place] there has been 14 mode switch episodes and one VHR episode detected within programmed parameters. All 14 mode switch episodes lasted < 1 minute and VHR episode that occurred on 12/05/23 actually appears toinitiate in the atrium with 1:1 conduction and lasts 5 seconds. RA pacing 38.2% and RV pacing 1.4%,currently programmed in an MVP mode. Stable lead measurements and trending. RV threshold has been somewhat elevated though stable at 2.5v/0.4ms. Threshold in person in [place] on 10/20/23 was 2v/0.4ms. Normal pacemaker function. Remote data conveyed to the provider. See attached documentation under the Cardiology/Echo section of Results Review. documented in this encounter Plan of Treatment Upcoming Encounters Date Type Department Care Team (Late st Contact Info) Description 04/19/2024 8:00 AM CDT Nurse Only [facility] [address] [place] [address] Scheduled Discharge Disposition: Discharged to home or self care Scheduled Orders Name Type Priority Associated Diagnoses Orde r Schedule PROGRAM EVALUATE PACEMAKER Cardiac Device Routine Cardiac pacemaker in situ 2 Occurrences starting 01/19/2024 until 01/18/2025 EVALUATE PACEMAKER/ ICM REMOTE Cardiac Device Routine Cardiac pacemaker in situ 4 Occurrences starting 01/19/2024 until 01/18/2025 documented as of this encounter Procedures Procedure Name Priority Date/Time Associated Diagnosis Comments EVALUATE PACEMAKER/ ICM REMOTE Routine 01/19/2024 3:09 PM CDT Cardiac pacemaker in situ documented in this encounter Results * EVALUATE PACEMAKER/ ICM REMOTE (01/19/2024 3:09 PM CDT) Sánchez WEST CARDIAC DEVICE ORDER [facility] documented in this encounter Visit Diagnoses Diagnosis Cardiac pacemaker in situ documented in this encounter Care Teams Draw Bench Operator Relationship Specialty Start Date End Date Idania Iraheta MD [address] [place] [address] PCP - General Outside Provider 08/15/15 Rigoberto Rivera MD [address] [place] [address] PCP - Cardiology Cardiology 04/01/17 documented as of this encounter
--- OUTSIDE RECORDS SUMMARY | 2024-03-08 15:04 | XMS_ITS | Encounter Summary ---
Author Organization [place] Address [facility] [place] [address] Care Team Providers Care Cook Enchilada Name Role Phone Nico Arnold MD Primary Care Provider [phone] Raoul Rowe MD Primary Care Provider Idania Iraheta MD Primary Care Provider Encounter Details Date Type Department Care Team (Late st Contact Info) Description 01/16/[address] [place] [address] Nico Arnold MD [facility] [address] [place] [address] MARK NW DISCHARGE SUMMARY (Primary Dx) Social History Tobacco [...] Primary documented in this encounter Care Teams Cook Enchilada Relationship Specialty Start Date End Date Nico Arnold MD [facility] [address] [place] [address] PCP - General 08/20/01 04/22/12 Raoul Rowe MD [facility] [address] [place] [address] PCP - General 04/23/12 06/29/14 Idania Iraheta MD [facility] [address] [place] [address] PCP - General Internal Medicine 06/30/14 documented as of this encounter
[2024-03-08 15:10] LABS: Troponin, Point-of-Care* 1.13 ng/ml (0.01-0.04)
[2024-03-08 15:13] LABS: Chloride* 108 mmol/L (96-114); Potassium* 3.8 mmol/L (3.6-5.1); Sodium* 139 mmol/L (135-149)
[2024-03-08 15:15] LABS: Creatinine* 1.1 mg/dL (0.5-1.5); Est. Creatinine Clearance* 60.28; Estimated Glomerular Filt Rate 66 ml/min
[2024-03-08 15:16] LABS: Anion Gap 8 mEq/L (7-15); Blood Urea Nitrogen* 29 mg/dL (7-30); Calcium* 9.4 mg/dL (8.4-10.6); Carbon Dioxide* 23 mmol/L (20-32); Glucose* 157 mg/dL (60-115)
[2024-03-08 15:17] LABS: Magnesium* 2.4 mg/dL (1.5-2.6)
[2024-03-08 15:31] LABS: Troponin I* 1.47 ng/mL (0.01-0.04)
[2024-03-08] MEDS: ASPIRIN 81 MG TAB.CHEW 324 MG PO (15:33)
[2024-03-08 15:50] LABS: PCR FLU A Negative PCR FLU A (Negative); PCR FLU B Negative PCR FLU B (Negative); SARS PCR* Negative SARS-CoV-2 (Negative)
[2024-03-08 16:17] LABS: INR 1.34 (0.91-1.10); Prothrombin Time 17.4 Seconds
[2024-03-08 16:18] LABS: Partial Thromboplastin Time* 42 Seconds (23-33)
[2024-03-08] MEDS: HEPARIN 5,000 UNIT/0.5 ML INJ 4000 UNIT IVP (16:21)
[2024-03-08] MEDS: HEPARIN 25,000 UNIT/500 ML BAG 20 UNIT IV (16:22)
[2024-03-08] MEDS: SIMETHICONE 80 MG TAB.CHEW PO (17:29)
[2024-03-08 17:51] LABS: Troponin I* 1.41 ng/mL (0.01-0.04)
== END 2024-03-08 19:01 | disposition short-term general hospital (02) ==
PROVIDERS: Emergency Provider Student in an Organized Health Care Education/Training Program; PCP Internal Medicine
DX: I21.4 Non-ST elevation (NSTEMI) myocardial infarction (principal)
CPT/HCPCS: 36415; 71046; 80048; 83735; 84484; 85025; 85027; 85610; 85730; 87631; 93005; 99284; 99291; A9270; J1644

== ENCOUNTER 2024-03-08 18:45 | Outpatient (CLI) | payer MEDICARE, BC, SELFPAY ==
--- OUTSIDE RECORDS SUMMARY | 2024-03-12 03:42 | XMS_ITS | Encounter Summary ---
Author Organization [place] Address [facility] [place] [address] Care Team Providers Care Ecological Economist Name Role Phone Idania Iraheta MD Primary Care Provider Encounter Details Date Type Department Care Team (Late st Contact Info) Description 05/17/2018 [facility] [address] [place] [phone] Kermit Dickens MD [facility] [address] [facility] [address] [place] [address] Pre-operative laboratory examination (Primary Dx) Social History [...] Resist/Sens S. aureus PCR (05/20/2018 10:48 AM BENEFIT DIRECTOR) Specimen Description Nares 05/20/2018 5:[address] [facility] Methicillin Resist/Sens S. aureus PCR Negative NEG^Negat jay 05/21/2018 12:22 AM BENEFIT DIRECTOR [facility] Comment: MRSA Negative: SA Negative ??MRSA and Staphylococcus aureus target DNA not detected, presumed negative for MRSA and SA colonization or the number of bacteria present may be below the limit of detection for the assay. FDA approved assay performed using [employer] GeneXpert(R) real-time PCR. Nasal structure (body structure) 05/20/2018 10:48 AM BENEFIT DIRECTOR 05/20/2018 5:07 PM BENEFIT DIRECTOR Kermit Dickens MD LAB - MICRO GENERAL ORDERABLES [facility] [address] [place], [place] [address] [place] [address] [phone] documented in this encounter Visit Diagnoses Diagnosis Pre-operative laboratory examination- Primary Pre-procedural laboratory examination documented in this encounter Care Teams Ecological Economist Relationship Specialty Start Date End Date Idania Iraheta MD [facility] - [address] [address] PCP - General Internal Medicine 06/30/14 documented as of this encounter
--- OUTSIDE RECORDS SUMMARY | 2024-03-12 03:42 | XMS_ITS | Referral Summary ---
Author Organization [facility] Address [address] [place] [address]. [place] [address] Care Team Providers Care Vacuum Forming Machine Operator Name Role Phone Idania Iraheta MD Primary Care Provider [phone] Allergies Active Allergy Reactions Criticality Noted Date [...] Comments Blood Pressure 151/72 06/10/2018 7:47 AM ENVIRONMENTAL TECHNICIAN Pulse 82 06/08/2018 3:00 PM ENVIRONMENTAL TECHNICIAN Temperature 35.7 ??C (96.3 ??F) 06/10/2018 7:47 AM CS T Respiratory Rate 16 06/10/2018 9:00 AM ENVIRONMENTAL TECHNICIAN Oxygen Saturation 94% 06/10/2018 7:47 AM ENVIRONMENTAL TECHNICIAN Inhaled Oxygen Concentration - - Weight 92.1 kg (203 lb) 06/07/2018 6:11 AM ENVIRONMENTAL TECHNICIAN Height 193 cm (6' 4) 05/28/2018 12:00 PM ENVIRONMENTAL TECHNICIAN pe r H & P Body Mass Index 24.71 05/28/2018 12:00 PM ENVIRONMENTAL TECHNICIAN Plan of Treatment Not on file Medical Devices Implanted Type Area Product Craftsman Device Identifier Shelf Expiration Date Model / Serial / Lot Bone Cement Radiopaque Simplex P Speedset 6192-1-001 Implanted:Qty: 1 on 06/07/2018 by Kermit Dickens MD at [facility] Cement, Bone Left: Knee [employer] 10/04/2019 6192-1-001 / / [id number] Bone Cement Simplex Speed Set Implanted:Qty: 2 on 04/29/2012 by Kermit Dickens MD at [facility] Right: Knee [employer] 11/03/2013 6192-1-001 / / [id number] Imp Comp Patella Yamileth Ii 9x32mm [id number] Implanted:Qty: 1 on 04/29/2012 by Kermit Dickens MD at [facility] Right: Knee [employer] 02/03/2022 [id number] / / [id number] Imp Comp Femoral Yamileth Ii Cr Oxin Sz 6 Rt [id number] Implanted:Qty: 1 on 04/29/2012 by Kermit Dickens MD at [facility] Right: Knee [employer] 08/06/2021 [id number] / / [id number] Imp Baseplate Tibial Yamileth Ii Sz 7 Rt Ti [id number] Implanted:Qty: 1 on 04/29/2012 by Kermit Dickens MD at [facility] Right: Knee [employer] 08/06/2021 [id number] / / [id number] Size 7-8 13mm Legion Cr Xlpe High Flexion Articular Insert Implanted:Qty: 1 on 04/29/2012 by Kermit Dickens MD at [facility] Right: Knee [employer] 07/06/2020 [id number] / / [id number] Imp Williston Arthrex Bio-Swivelock 5.5mm Ar-2323bcc Implanted:Qty: 1 on 07/11/2013 by Kermit Dickens MD at [facility] Left: Shoulder [employer] 08/05/2013 AR-2323BCC / / [id number] Imp Williston Arthrex Bio-Swivelock 4.75mm Ar-2324bcm Implanted:Qty: 1 on 07/11/2013 by Kermit Dickens MD at [facility] Left: Shoulder [employer] 01/02/2015 AR-2324BCM / / [id number] Wire Joseph 0.054x4 Implanted:Qty: 1 on 07/17/2014 by Sarthak Pichardo MD at [facility] Left: Toe G SOURCE 78.2040 / / [id number] Wire Joseph 0.045x4 Implanted:Qty: 1 on 07/17/2014 by Sarthak Pichardo MD at [facility] Left: Toe [employer]OURCE 78.2020 / / 4l Femur Cr Implanted:Qty: 1 on 06/07/2018 by Kermit Dickens MD at [facility] Left: Knee [employer] 01/02/2021 90-SRK-3124 / / [id number] Size 5 Tibia Tray Implanted:Qty: 1 on 06/07/2018 by Kermit Dickens MD at [facility] Left: Knee [employer] 07/17/2021 90-SRK-2005 00 / / [id number] Patella 33mm Implanted:Qty: 1 on 06/07/2018 by Kermit Dickens MD at [facility] Left: Knee [employer] 03/12/2021 90-SRK-4203 00 / / [id number] Insert Cr 4 16mm Implanted:Qty: 1 on 06/07/2018 by Kermit Dickens MD at [facility] Left: Knee [employer] 06/07/2021 90-SRK-1104 16 / / [id number] Advance Directives For more information, please contact: [phone] Documents on File Type Date Recorded Patient Supervisor Loading Expl anation Advance Directives and Living Will [...] Agents on File Name Relationship Healthcare Agent [facility] p Communication Allisonruslan Jaegerrohan Spouse Health Care Agent Jacob Robertson Relative First Alternate Health Care Agent Domenico Abraham Second Alternate Health Care Agent Care Teams Vacuum Forming Machine Operator Relationship Specialty Start Date End Date Idania Iraheta MD [address] [address] PCP - General Internal Medicine 06/30/14
--- OUTSIDE RECORDS SUMMARY | 2024-03-12 03:42 | XMS_ITS | Encounter Summary ---
Author Organization [facility] Address [facility]ly [facility] [place] [place] [address] Care Team Providers Care Websphere Portal Developer Name Role Phone Nico Arnold MD Primary Care Provider [phone] Raoul Rowe MD Primary Care Provider Idania Iraheta MD Primary Care Provider [phone] Encounter Details Date Type Department Care Team (Late st Contact Info) Description 01/20/[address] [place] [address] Nico Arnold MD [facility] [address] [place] [address] MARK NW POST OP NOTE, ANESTHESIA ASSESSMENT [...] Primary documented in this encounter Care Teams Websphere Portal Developer Relationship Specialty Start Date End Date Nico Arnold MD [facility] [address] [place] [address] PCP - General 08/20/01 04/22/12 Raoul Rowe MD [facility] [address] [place] [address] PCP - General 04/23/12 06/29/14 Idania Iraheta MD [facility] [address] [place] [address] PCP - General Internal Medicine 06/30/14 documented as of this encounter
--- OUTSIDE RECORDS SUMMARY | 2024-03-12 03:42 | XMS_ITS | Referral Summary ---
Author Organization [place] Address [address] [place] [address] Phone Care Team Providers Care Commercial Ocean Clammer Name Role Phone Idania Iraheta MD Primary Care Provider Rigoberto Rivera MD Unavailable Source Comments [employer] is fully rolled out on [employer]. Last update 12/08/08.[employer] Encounters Date Type Department Care Team Description 03/10/2024 11:30 AM CDT [facility] [address] [place] [address] Rigoberto Rivera MD Discharge Disposition: Discharged to home or self care 03/08/2024 [facility] [address] [place] [address] Yasmin Ramachandran RN 03/08/2024 Nurse Triage [facility] [address] [place] [phone] Martha Smith RN Chest Pain 01/19/2024 8:00 AM CDT Nurse Only [facility] [address] [place] [address] Sánchez Simeon MBBS Cardiac pacemaker in situ [...] Noted Date Diagnosed Date Sinus node dysfunction ([facility]) 08/15/2015 Overview: 1999 - Pacemaker implanted [...] leads from 1999. PAF (paroxysmal atrial fibrillation) ([facility]) 0 08/15/2015 Overview: 2004 - Ablation 2005 [...] [facility] [address] [place] [address] Scheduled Discharge Disposition: Discharged to home or self care Procedures Procedure Name Priority Date/Time Associated Diagnosis Comments EVALUATE PACEMAKER/ ICM REMOTE Routine 01/19/2024 3:09 PM CDT Cardiac pacemaker in situ from Last 3 Months Results * EVALUATE PACEMAKER/ ICM REMOTE (01/19/2024 3:09 PM CDT) Sánchez WEST CARDIAC DEVICE ORDER [facility] PACEART from Last 3 Months Care Teams Commercial Ocean Clammer Relationship Specialty Start Date End Date Idania Iraheta MD [address] [id number] PCP - General Outside Provider 08/15/15 Rigoberto Rivera MD [address] [place] [address] PCP - Cardiology Cardiology 04/01/17
--- OUTSIDE RECORDS SUMMARY | 2024-03-12 03:42 | XMS_ITS | Encounter Summary ---
Author Organization [facility] Address [address] [place] [address] Phone Care Team Providers Care Store Specialist Name Role Phone Idania Iraheta MD Primary Care Provider Rigoberto Rivera MD Unavailable Encounter Details Date Type Department Care Team (Late st Contact Info) Description 03/10/2024 11:30 AM CDT [facility] [address] [place] [address] Rigoberto Rivera MD [address] [place] [address] [phone] Discharge Disposition: Discharged to home or self [...] Only [facility] [address] [place] [address] Scheduled Discharge Disposition: Discharged to home or self care documented as of this encounter Visit Diagnoses Not on filedocumented in this encounter Care Teams Store Specialist Relationship Specialty Start Date End Date Idania Iraheta MD [address] [place] [address] PCP - General Outside Provider 08/15/15 Rigoberto Rivera MD [address] [place] [address] PCP - Cardiology Cardiology 04/01/17 documented as of this encounter
--- OUTSIDE RECORDS SUMMARY | 2024-03-12 03:42 | XMS_ITS | Clinical Summary ---
Author Organization [employer] Address [address] [place] [address] Phone Care Team Providers Care Adjuster Piano Action Name Role Phone Idania Iraheta MD Primary Care Provider [phone] Rigoberto Rivera MD Unavailable Source Comments Where is fully rolled out on [email or web address]. Last update 12/08/08.[employer] Allergies Active Allergy Reactions Criticality Noted Date [...] Noted Date Diagnosed Date Sinus node dysfunction ([facility]) 08/15/2015 Overview: 1999 - Pacemaker implanted Dual [...] [facility] [address] [place] [address] Rigoberto Rivera MD Discharge Disposition: Discharged to home or self care 03/08/2024 Telephone [facility] [address] [place] [address] Yasmin Ramachandran RN 03/08/2024 Nurse Triage [facility] [address] [place] [address] Martha Smith RN Chest Pain 01/19/2024 8:00 AM CDT [facility] [address] [place] [address] Sánchez Simeon MBBS Cardiac pacemaker in situ [...] Only [facility] [address] [place] [address] Scheduled Discharge Disposition: Discharged to home or [...] PACEART from Last 3 Months Care Teams Adjuster Piano Action Relationship Specialty Start Date End Date Idania Iraheta MD [address] [place] [address] PCP - General Outside Provider 08/15/15 Rigoberto Rivera MD [address] [place] [address] PCP - Cardiology Cardiology 04/01/17
--- OUTSIDE RECORDS SUMMARY | 2024-03-12 03:42 | XMS_ITS | Clinical Summary ---
Author Organization [employer] [facility] [employer] [facility] Address [place], [place] [address] Care Team Providers Care Beauty Culturist Apprentice Name Role Phone Raoul Mohamud MD Primary Care Provider Allergies Active Allergy Reactions Criticality Noted Date Comments Diltiazem Edema 08/14/2006 Losartan Cough 05/30/2017 Sulfa (Sulfonamide Antibiotics) Hives 03/2007 Medications Medication Sig Dispensed Refills Start Date End Date Status amLODIPine (NORVASC) 10 mg tablet Take 10 mg by mouth once daily. Take 1 tablet by mouth daily Active multivitamin (MVI) tablet Take 1 tablet by mouth once daily. Take 1 tablet by mouth daily Active cholecalciferol (VITAMIN D-3) 2,000 unit capsule Take 1 capsule by mouth once daily. 0 07/29/2017 Active simethicone chewable (MYLANTA GAS RELIEF; GAS X) 80 mg chewable tablet Chew 80 mg by mouth 4 times daily if needed for Flatulence. Max dose: 500 mg per 24 hrs Active atorvastatin (LIPITOR) 40 mg tabletIndications:NST BARBI (non-ST elevated myocardial infarction) (HC) Take 1 Tablet (40 mg) by mouth at bedtime. 30 Tablet 2 03/10/2024 Active metoprolol succinate (TOPROL XL) 25 mg Sustained-Release tabletIndications:NST BARBI (non-ST elevated myocardial infarction) (HC) Take 1 Tablet (25 mg) by mouth once daily. 30 Tablet 2 03/10/2024 Active nitroglycerin (NITROSTAT) 0.4 mg sublingual tabletIndications:NST BARBI (non-ST elevated myocardial infarction) (HC) Place 1 Tablet (0.4 mg) under the tongue every 5 minutes if needed for Chest pain 1st choice (Hold if SBP less than 90 mmHg). Up to 3 tablets in 15 minutes. 25 Tablet 03/10/2024 Active apixaban (ELIQUIS) 5 mg tabletIndications:pre vent thromboembolism in chronic atrial fibrillation Take 1 Tablet (5 mg) by mouth two times daily. Do not start before March 11, 2024. 60 Tablet 2 03/11/2024 Active clopidogreL (PLAVIX) 75 mg tabletIndications:NST BARBI (non-ST elevated myocardial infarction) (HC) Take 1 Tablet (75 mg) by mouth once daily in the morning. Do not start before March 11, 2024. 30 Tablet 2 03/11/2024 Active aspirin 81 mg tablet Take 81 mg by mouth once daily with a meal. Take 1 tablet by mouth daily Discontinue d(*Patient states no longer taking) Active Problems Problem Noted Date Diagnosed Date NSTEMI (non-ST elevated myocardial infarction) 0 03/08/2024 Malignant melanoma of skin of scalp and neck Sensorineural hearing loss, bilateral 06/15/2007 Sinoatrial node dysfunction 08/16/2006 Unspecified essential hypertension 08/16/2006 PAROXYSMAL ATRIAL FIBRILLATION 08/16/2006 Overview (08/16/2006): s/p radiofrequency ablation 2003 and 2005 Encounters Date Type Department Care Team Description 03/08/2024 7:50 PM CDT - 03/10/2024 7:08 PM CDT Hospital Encounter [facility] [address] [place], [place] [id number] [facility] [place] [facility] Hospitalists Of Saravanan Means MD Larson, Krista Lynn, MD NSTEMI (non-ST elevated myocardial infarction) (HC) (Primary Dx); Cardiovascular symptoms; Atrial fibrillation, unspecified type (HC) Discharge Disposition: Home Self Care 03/08/2024 Telephone [facility] [address] [place], [place] [phone] Lj Vega MD from Last 3 Months Social History Tobacco Use Types Packs/Day Years Used Date Smoking Tobacco: Never Tobacco Cessation:Counseling Given: Yes Alcohol Use Standard Drinks/Week Comments Not Asked 0 (1 standard drink = 0.6 oz pur e alcohol) Social Connections Answer Date Recorded Frequency of Communication with Friends and Fami ly Not on file 03/08/2024 Sex and Gender Information Value Date Recorded Sex Assigned at Not on file Gender Identity Not on file Sexual Orientation Not on file Obstetrics History Last Filed Vital Signs Vital Sign Reading Time Taken Comments Blood Pressure 152/99 03/10/2024 9:10 AM CDT Pulse 81 03/10/2024 9:10 AM CDT Temperature 36.6 ??C (97.8 ??F) 03/10/2024 1:30 AM CD T Respiratory Rate 16 03/10/2024 4:20 AM CDT Oxygen Saturation 97% 03/10/2024 9:10 AM CDT Inhaled Oxygen Concentration - - Weight 88.8 kg (195 lb 12.8 oz) 03/09/2024 6:00 AM CDT Height 195.6 cm (6' 5) 11/19/2012 11:1 7 AM CDT Body Mass Index - - Plan of Treatment Upcoming Encounters Date Type Department Care Team (Late st Contact Info) Description 05/10/2024 11:00 AM 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 Office Visit [facility] [address] [place] [address] Gómez Cruz MD [address] [facility] [address] [place] [address] Health Maintenance Due Date Last Done Comments Tdap 1950 Depression screening for age 12+ 1951 BMI (ht and wt on same day) for age 18+ 1957 Tetanus booster 1959 Zoster (shingles) series for age 50+ (1 of 2) 1989 RSV vaccine for adults or (1 - 1-dose 60+ series) 1999 Medicare Wellness for age 65+ 02/24/2004 Pneumococcal series for age 65+ (1 of 1 - PCV) 02/24/2004 Influenza for age 65+ 03/06/2024 COVID-19 vaccine series Completed 11/09/19 24, 05/19/2023, 02/03/2023, Additional history exists Procedures Procedure Name Priority Date/Time Associated Diagnosis Comments CREATININE Add On 03/10/2024 8:28 AM CDT POTASSIUM Early AM 03/10/2024 8:28 AM CDT APTT Early AM 03/10/2024 6:19 AM CDT MAGNESIUM Early AM 03/10/2024 6:19 AM CDT HEMATOCRIT Early AM 03/10/2024 6:19 AM CDT HEMOGLOBIN Early AM 03/10/2024 6:19 AM CDT PLATELET COUNT Early AM 03/10/2024 6:19 AM CDT SCAN-CARDIAC STRIP 03/10/2024 12 :04 AM CDT GLUCOSE METER Timed 03/09/2024 9:14 PM CDT SCAN-CARDIAC STRIP 03/09/2024 5: 10 PM CDT EKG 12 LEAD SHABNAM 03/09/2024 4:36 PM CDT CVL CORONARY ANGIOGRAM POSS PCI Routine 03/09/2024 3:35 PM CDT Cardiovascular symptoms ECHO TTE COMPLETE W CONTRAST Routine 03/09/2024 2:35 PM CDT PACER JEFFERSON DUAL CHAMBER WO REPROG Routine 03/09/2024 2:33 PM CDT SCAN CORRESP-EKG RESULTS 03/09/2024 1:52 PM CDT SCAN CORRESP-IMAGING 03/09/2024 1:52 PM CDT APTT Timed 03/09/2024 11:35 AM CDT SCAN-CARDIAC STRIP 03/09/2024 10 :45 AM CDT CBC WITH AUTO DIFFERENTIAL Early AM 03/09/2024 5:01 AM CDT APTT Timed 03/09/2024 5:01 AM CDT HEMOGLOBIN A1C Early AM 03/09/2024 5:01 AM CDT LIPID PANEL Early AM 03/09/2024 5:01 AM CDT MAGNESIUM Early AM 03/09/2024 5:01 AM CDT BASIC METABOLIC PANEL Early AM 03/09/2024 5:01 AM CDT CBC WITH AUTO DIFFERENTIAL Early AM 03/09/2024 5:01 AM CDT SCAN-CARDIAC STRIP 03/08/2024 11 :20 PM CDT TROPONIN T (HS) ONE TIME Timed 03/08/2024 11:08 PM CDT TROPONIN T (HS) ACUTE W/2HR REFLEX STAT 03/08/2024 9:03 PM CDT CREATININE SHABNAM 03/08/2024 9:03 PM CDT BUN SHABNAM 03/08/2024 9:03 PM CDT APTT SHABNAM 03/08/2024 9:03 PM CDT PROTIME-INR SHABNAM 03/08/2024 9:03 PM CDT EKG 12 LEAD STAT 03/08/2024 8:21 PM CDT from Last 3 Months Results * POTASSIUM (03/10/2024 8:28 AM CDT) [facility] POTASSIUM 4.0 3.5 - 5.1 mmol/L 03/10/2024 9:22 AM CDT [facility] Blood BLOOD SPECIMEN / Unknown Butterfly / Unknown 03/10/2024 8:28 AM CDT 03/10/2024 8:39 AM CDT Valerie Mcnally RN CHEMISTRY Performing Organization Address City/[facility]/ZIP Co de Phone Number [facility] [address] [place] [address], * (ABNORMAL) Creatinine FOR ADD ON (03/10/2024 8:28 AM CDT) Only the most recent of2 resultswithin the time period is included. eGFR 65(L) >90 mL/min/1.7 3m2 03/10/2024 10:12 AM CDT [facility] Comment:As of 2021, eG FR is calculated by the CKD-EPI creatinine equation without race adjustment. ??eGFR can be influenced by muscle mass, exercise, and diet. ??The reported eGFR is an estimation only and is only applicable if the renal function is stable. CREATININE 1.11 0.70 - 1.20 mg/dL 03/10/2024 10:12 AM CDT [facility] Blood BLOOD SPECIMEN / Unknown Butterfly / Unknown 03/10/2024 8:28 AM CDT 03/10/2024 8:39 AM CDT Kristin Adair NP CHEMI STRY Performing Organization Address City/[facility]/ZIP Co de Phone Number [facility] [address] [place] [address], * PLATELET COUNT (03/10/2024 6:19 AM CDT) PLATELET COUNT 215 140 - 440 thou/cu mm 03/10/2024 6:46 AM CDT [facility] MPV 9.3 6.5 - 11.0 fL 03/10/2024 6:46 AM CDT [facility] Blood BLOOD SPECIMEN / Unknown Venipuncture / Unknown 03/10/2024 6:19 AM CDT 03/10/2024 6:34 AM CDT Narrative [facility] - 03/10/2024 6:46 AM CDT Every morning while on IV heparin. Every morning while on IV heparin. Necessary every morning while on IV heparin. Saravanan Means MD HEMATOLOGY Performing Organization Address [facility] de Phone Number [facility] [address] [place] [address], * HEMOGLOBIN (03/10/2024 6:19 AM CDT) HEMOGLOBIN 14.4 13.5 - 17.5 g/dL 03/10/2024 6:46 AM CDT [facility] MCV 97 80 - 100 fL 03/10/2024 6:46 AM CDT [facility] Blood BLOOD SPECIMEN / Unknown Venipuncture / Unknown 03/10/2024 6:19 AM CDT 03/10/2024 6:[address] [facility] - 03/10/2024 6:46 AM CDT Every morning while on IV heparin. Every morning while on IV heparin. Necessary every morning while on IV heparin. Saravanan Means MD HEMATOLOGY Performing Organization Address [facility] de Phone Number [facility] [address] [place] [address], * HEMATOCRIT (03/10/2024 6:19 AM CDT) HEMATOCRIT 42.9 37.0 - 53.0 % 03/10/2024 6:46 AM CDT [facility] Blood BLOOD SPECIMEN / Unknown Venipuncture / Unknown 03/10/2024 6:19 AM CDT 03/10/2024 6:[address] [facility] - 03/10/2024 6:46 AM CDT Every morning while on IV heparin. Every morning while on IV heparin. Necessary every morning while on IV heparin. Saravanan Means MD HEMATOLOGY Performing Organization Address [facility] de Phone Number [facility] [address] [place] [address], * APTT (03/10/2024 6:19 AM CDT) Only the most recent of4 resultswithin the time period is included. APTT 29 28 - 36 sec 03/10/2024 6:57 AM CDT [facility] Blood BLOOD SPECIMEN / Unknown Venipuncture / Unknown 03/10/2024 6:19 AM CDT 03/10/2024 6:34 AM CDT Narrative [facility] - 03/10/2024 6:57 AM CDT Therapeutic Range: 57-87 seconds Vanessa Fan MD HEMATOLOGY Performing Organization Address [facility] Phone Number [facility] [address] [place] [address], * MAGNESIUM (03/10/2024 6:19 AM CDT) Only the most recent of2 resultswithin the time period is included. MAGNESIUM 2.3 1.6 - 2.4 mg/dL 03/10/2024 7:07 AM CDT [facility] Blood BLOOD SPECIMEN / Unknown Venipuncture / Unknown 03/10/2024 6:19 AM CDT 03/10/2024 6:34 AM CDT Valerie Mcnally RN CHEMISTRY Performing Organization Address [facility] Co de Phone Number [facility] [address] [place] [address], * SCAN-CARDIAC STRIP (03/10/2024 12:04 AM CDT) Scanner OTHER * (ABNORMAL) GLUCOSE METER (03/09/2024 9:14 PM CDT) GLUCOSE METER 144(H) 65 - 100 mg/dL 03/09/2024 9:15 PM CDT [facility] Blood BLOOD SPECIMEN / Unknown 03/09/2024 9:14 PM CDT 03/09/2024 9:15 PM CDT Vanessa Fan MD CHEMISTRY [facility] [address] [place] [address], * SCAN-CARDIAC STRIP (03/09/2024 5:10 PM CDT) Scanner OTHER * EKG - On Arrival to Floor (03/09/2024 4:36 PM CDT) Only the most recent of2 resultswithin the time period is included. Interpretation Atrial fibrillation with premature ventricular or aberrantly conducted complexes ST & T wave abnormality, consider inferior ischemia Prolonged QT Abnormal ECG When compared with ECG of 08-Mar-2024 20:21, Atrial fibrillation has replaced Sinus rhythm BEYOND NOW Ventricular Rate 76 BPM BEYOND NOW Atrial Rate BPM BEYOND NOW P-R Interval ms BEYOND NOW QRS Duration 106 ms BEYOND NOW QT 436 ms BEYOND NOW QTc 490 ms BEYOND NOW P [place] degrees BEYOND NOW R [place] 9 degrees BEYOND NOW T [place] -84 degrees BEYOND NOW 03/09/2024 4:36 PM CDT 03/09/2024 8:48 PM CDT Rocio Diallo MD EKG ORD Performing Organization Address City/[facility]/ZIP Co de Phone Number BEYOND NOW [place], [place] * CVL CORONARY ANGIOGRAM POSS PCI (03/09/2024 3:35 PM CDT) Anatomical Region Laterality Modality Other 03/09/2024 3:35 PM CDT Narrative Transcriptions Gómez Cruz MD - 03/09/2024 4:41 PM CDT [facility] Cardiac Catheterization Report Name: LUCIANO ROBERTSON Event Date: 03/09/2024 15:35 [employer] ID #: [id number] VERONIKA #: [id number] Patient Class: Inpatient Diagnostic Physician: GÓMEZ CRUZ [facility] Interventional Physician: GÓMEZ CRUZ [facility] Referring Physician: Primary Care Physician: RAOUL MOHAMUD Date: 1940 Gender: Male Age: 84 Summary/Conclusions PRESENTATION / INDICATIONS * NonSTEMI VASCULAR ACCESS * Using ultrasound guidance and a percutaneous technique, the right commonfemoral artery was accessed. Ultrasound was used to confirm vesselpatency, localizing needle into the lumen of the vessel. An image wassaved for the medical record. DIAGNOSTIC - CORONARY * Co-dominant coronary artery system SPECIAL PROCEDURES * Right femoral arteriotomy was successfully closed utilizing a closuredevice, 6F Angioseal DIAGNOSTIC SUMMARY ? The LMCA has mild luminal irregularities. ? The LAD has mild luminal irregularities. ? 90% stenosis in the Mid Circumflex ? 30% diffuse stenosis in the Proximal RCA INTERVENTION ? Successful 2.5mm x 12mm Balloon, 2.75mm x 18mm Drug Eluting Stent, and3.5mm x 8mm Balloon to Mid Circumflex (NC POT), post stenosis 0% RECOMMENDATIONS & PLAN * Medical Rx - Aspirin: 81 mg daily * Plavix for 1 year Patient is also on OAC for atrial fibrillation, patient can leave thehospital on Plavix and OAC (no asa) * Optimize risk factors and medications Consent & Mcmechen Protocol The risks, benefits, and alternatives of the procedure were discussed withthe patient and written informed consent was obtained. Mcmechen protocol was followed. TIME OUT conducted just prior tostarting procedure confirmed patient identity, site/side, procedure,patient position, and availability of correct equipment and implants (ifapplicable). Staff Name Title GÓMEZ CRUZ Diagnostic Soc Analyst Debra Perkins RN Nurse Cory Mckeon CVT Scrub Satish Silva CVT Monitor Rocio Diallo Fellow GÓMEZ CRUZ Molder Closed Molds Procedures ? Ultrasound Guided Vascular Access ? Coronary Angiogram ? Stent Placement, Drug Eluting [PCI] Diagnostic Findings * Left Main Coronary Artery ? The LMCA has mild luminal irregularities. * Left Anterior Descending ? The LAD has mild luminal irregularities. * Circumflex ? 90% (denovo) stenosis in the Mid Circumflex. The lesion has a TIMIflow of 3 and is a bifurcation lesion. * Right Coronary Artery ? 30% diffuse stenosis in the Proximal RCA. Lesion Information Lesion # Vessel Segment Lesion Length Lesion Details 1 Mid Circumflex 12 Proximal RCA Hemodynamics State: Baseline Pressures (mmHg) Site Systolic Diastolic End Diastolic A Wave V Wave Mean FA 162 74 106 AO 174 75 102 Interventional Results * Circumflex ? Successful intervention to the Mid Circumflex 90% lesion with a finalstenosis of 0% using a 2.5mm x 12mm Balloon, 2.75mm x 18mm Drug ElutingStent, and a 3.5mm x 8mm Balloon. The final RUBÉN flow was 3. Interventional Devices Lesion # Vessel Segment Type Name Max Pressure 1 Mid Circumflex Balloon BLLN EUPHOR[place] RX [id number] 1 Mid Circumflex Drug Eluting Stent AIDAN ANN MARIE [place] RX [id number] 1 Mid Circumflex Balloon BLLN [place] RX 3.5MM X 8MM Procedure Details Estimated Blood Loss: < 30 ml Specimen Collected: None Level of Sedation Achieved: Moderate Procedure Start: 15:35 Procedure End: 16:21 Procedure Time: 46 min Fluoroscopy Time: 11.3 min Cumulative Air Kerma: 490 mGy DAP: 3610 uGy/M2 Contrast: Omnipaque (low-osmolar), 90 ml Physiologic Data Weight: 88.5 kgBSA: 2.22 m2 Vascular Access Time Access Sheath Size 15:39 Right Femoral Artery, sheath inserted Complications ? No Complications Medications Ordered and Administered Start Time Stop Time Medication Dose Units Route Ordered By Given By 15:34 (Existing) Heparin 0 units per hr IV 15:35 Versed 1 mg IV Gómez Cruz Tammy RN 15:35 Fentanyl 50 mcg IV Gómez Cruz Tammy RN 15:37 1% Lidocaine 10 ml Subcut Gómez Cruz Jaskanwal 15:52 Heparin 9000 units IV Gómez Cruz Tammy RN 15:52 Ticagrelor/Brilinta 180 mg PO Gómez Cruz Tammy RN 15:57 Versed 1 mg IV Gómez Cruz Tammy RN 15:57 Fentanyl 50 mcg IV Gómez Cruz Tammy RN 16:18 Nitroglycerin 100 mcg IC Gómez Cruz Jaskanwal I personally monitored the patient?s conscious sedation during theprocedure. Conscious sedation starts with the first sedation medication dose ofFentanyl or Versed and ends when the procedure is completed, the patientis stable for recovery status, and the physician or other qualified healthcare professional providing the sedation ends personal [id number] time with the patient. The medications listed above were verbally ordered by me and read back tome as documented above. Refer to the procedure log report for additional case details. electronically signed on 03/09/2024 4:41:31 PM with status of Final Gómez Cruz MD [facility] [address] [facility] [address] [place] [address] (p) (f) Provider Referring CV IMAGING * ECHO TTE COMPLETE W CONTRAST (03/09/2024 2:35 PM CDT) AORTIC VALVE MEAN PG 4 mmHg EJECTION FRACTION 58 % EJECTION FRACTION 55 - 60% LVEDD 5.0 cm Anatomical Region Laterality Modality Ultrasound 03/09/2024 12:3 0 PM CDT Narrative 03/09/2024 2:52 PM CDT ECHOCARDIOGRAM LUCIANO ROBERTSON ? Accession#: ?? [id number] : ?1940 84 years Study Date: ?? 03/09/2024 12:30:52 PM Gender: M ?BP: ? 148/76 mmHg Height: 195.00 cm ?BSA: ?2.20 m? ? ? Weight: 88.00 kg ? Tech: ? MELISSA ? Referring MD: SARAVANAN MEANS Site: ? [facility] Reading Location: [facility] IP Patient Location: Inpatient. Procedure: 2D w/ Contrast, Color Doppler and Spectral Doppler. Indication for study: NSTEMI Cardiac Rhythm: Normal sinus.Study quality: Good. Final Impressions: 1. Normal left ventricular size, mildly increased wall thickness, normal global and regional systolic function, calculated EF of 58 %. 2. Right ventricular cavity size is normal, global systolic RV function is normal. 3. The aortic valve is trileaflet and sclerotic, no stenosis and trivial regurgitation. 4. The mitral valve is sclerotic, mild mitral regurgitation. 5. 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 6. Echo contrast was administered to enhance visualization of all left ventricular segments. Comparison There are no prior studies on this patient for comparison purposes. Chamber Sizes and Function Normal left ventricular size, mildly increased wall thickness, normal global systolic function, calculated EF of 58 %. Left atrial size is normal. Right ventricular cavity size is normal, global systolic RV function is normal. RV wall thickness is normal. A single pacemaker lead is seen in the right heart. The right atrium is mildly enlarged. Right atrial volume index is 30 ml/m? ? ?. Right atrial area is 20 cm? ? ?. The pulmonary artery is of normal size and origin. The sinus of Valsalva is dilated. The ascending aorta is normal for age/sex/bsa. Valves, RV Pressures and Diastolic Function The aortic valve is trileaflet and sclerotic, no stenosis and trivial regurgitation. The mitral valve is sclerotic, mild mitral regurgitation. Mild mitral annular calcification is present. Indeterminate pattern of LV diastolic filling. The tricuspid valve is normal in structure. Tricuspid regurgitation is trace regurgitation. Unable to assess right ventricular systolic pressure. The pulmonic valve is normal. Trace pulmonary regurgitation. Masses, Effusion, Shunts There is no pericardial effusion. The inferior vena cava is not well visualized, respiratory size variation not well visualized. No left to right shunting was detected by limited color flow Doppler interrogation of the interatrial septum. MEASUREMENTS AND CALCULATIONS 2-D Measurements and LV Function: LVID (d) 5.0 cm Planimetered EF 58 % IVS (d) ??1.2 cm LVOT diameter ?? 2.5 cm Ao Sinus 4.2 cm HR ?68 bpm Asc Ao ?? 3.9 cm LA Vol index ?37 ml/m2 ?RA Vol index ?30 ml/m2 ?RA area ? 20 cm?RV Max 4C (d) ?? 5.1 cm Diastology: Mitral ?Tissue Doppler E Peak 0.6 m/s ??e', Septum ? 0.08 m/s A Peak 0.5 m/s ??e', Lateral ?0.08 m/s E/A ?1.0 ?E/e' Average ?? 6.91 DT ? 301 msec Aortic Valve: Vmax ? 1.3 m/s ??JERAMY (V) ?? 3.27 cm? ? ? VTI ?0.27 m ?? JERAMY (I) ?? 3.48 cm? ? ? LVOT V max 0.8 m/s ??Max PG ?6 mmHg LVOT VTI ?? 0.19 m ?? Mean PG ?? 4 mmHg SV ? 95 ml ?Dim Index 0.71 SV index ?? 43 ml/m? ? ? CO ?6.4 l/min ?CI ?2.9 l/min/m? ? ? Mitral Valve: MVA ?2.5 cm? ? ? MV P 1/2 87 msec Tricuspid Valve and estimated PA pressures: TAPSE 2.3 cm Contrast documentation: 2 ml diluted Definity, lot #[id number], [facility]# [id number] was administered peripherally to enhance visualization of all left ventricular segments. . This study was interpreted by an [facility] accredited facility. ??Final ?? Procedure Note Vicente Muñoz MD - 03/09/2024 ECHOCARDIOGRAM LUCIANO ROBERTSON : 1940 84 years Study Date: 03/09/2024 12:30:52 PM Gender: M BP: 148/76 mmHg Height: 195.00 cm BSA: 2.20 m? ? ? Weight: 88.00 kg Tech: MELISSA Referring MD: SARAVANAN MEANS Site: [facility] Reading Location: [facility] Patient Location: Inpatient. Procedure: 2D w/ Contrast, Color Doppler and Spectral Doppler. Indication for study: NSTEMI Cardiac Rhythm: Normal sinus.Study quality: Good. Final Impressions: 1. Normal left ventricular size, mildly increased wall thickness, normalglobal and regional systolic function, calculated EF of 58 %. 2. Right ventricular cavity size is normal, global systolic RV functionis normal. 3. The aortic valve is trileaflet and sclerotic, no stenosis and trivialregurgitation. 4. The mitral valve is sclerotic, mild mitral regurgitation. 5. 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 6. Echo contrast was administered to enhance visualization of all leftventricular segments. Comparison There are no prior studies on this patient for comparison purposes. Chamber Sizes and Function Normal left ventricular size, mildly increased wall thickness, normalglobal systolic function, calculated EF of 58 %. Left atrial size isnormal. Right ventricular cavity size is normal, global systolic RVfunction is normal. RV wall thickness is normal. A single pacemaker leadis seen in the right heart. The right atrium is mildly enlarged. Rightatrial volume index is 30 ml/m? ? ?. Right atrial area is 20 cm? ? ?. Thepulmonary artery is of normal size and origin. The sinus of Valsalva isdilated. The ascending aorta is normal for age/sex/bsa. Valves, RV Pressures and Diastolic Function The aortic valve is trileaflet and sclerotic, no stenosis and trivialregurgitation. The mitral valve is sclerotic, mild mitral regurgitation.Mild mitral annular calcification is present. Indeterminate pattern of LVdiastolic filling. The tricuspid valve is normal in structure. Tricuspidregurgitation is trace regurgitation. Unable to assess right ventricularsystolic pressure. The pulmonic valve is normal. Trace pulmonaryregurgitation. Masses, Effusion, Shunts There is no pericardial effusion. The inferior vena cava is not wellvisualized, respiratory size variation not well visualized. No left toright shunting was detected by limited color flow Doppler interrogation ofthe interatrial septum. MEASUREMENTS AND CALCULATIONS 2-D Measurements and LV Function: LVID (d) 5.0 cm Planimetered EF 58 % IVS (d) 1.2 cm LVOT diameter 2.5 cm Ao Sinus 4.2 cm HR 68 bpm Asc Ao 3.9 cm LA Vol index 37 ml/m2 RA Vol index 30 ml/m2 RA area 20 cm? ? ? RV Max 4C (d) 5.1 cm Diastology: Mitral Tissue Doppler E Peak 0.6 m/s e', Septum 0.08 m/s A Peak 0.5 m/s e', Lateral 0.08 m/s E/A 1.0 E/e' Average 6.91 DT 301 msec Aortic Valve: Vmax 1.3 m/s JERAMY (V) 3.27 cm? ? ? VTI 0.27 m JERAMY (I) 3.48 cm? ? ? LVOT V max 0.8 m/s Max PG 6 mmHg LVOT VTI 0.19 m Mean PG 4 mmHg SV 95 ml Dim Index 0.71 SV index 43 ml/m? ? ? CO 6.4 l/min CI 2.9 l/min/m? ? ? Mitral Valve: MVA 2.5 cm? ? ? MV P 1/2 87 msec Tricuspid Valve and estimated PA pressures: TAPSE 2.3 cm Contrast documentation: 2 ml diluted Definity, lot #[id number], [facility]#[id number] was administered peripherally to enhance visualization of allleft ventricular segments. . This study was interpreted by an [facility] accredited facility. Final Saravanan Means MD ECHO ORD * PACER [place]FFERSON DUAL CHAMBER WO REPROG (03/09/2024 2:33 PM CDT) Narrative Moises William MD - 03/09/2024 2:33 PM CDT Sia Broderick RN ? 03/09/2024 ??2:57 PM PACEMAKER EVALUATION REPORT March 09, 2024 Summary: Normal pacemaker function. Lead trends stable. 1 VT detection. Echo being performed today. 1 atrial high rate episode on 03/03 - review of EGM suggest an SVT (vs VT however irregular ventricular rates). AP 33.1%, DELIVERY TECH 2.3%. Estimated 4 years battery longevity remaining. Indication for Pacemaker: Sinus Node Dysfunction - Tachy/Junior Primary MD: Raoul Mohamud MD Implanting MD: Dr. Rigoberto Rivera DEVICE DATA [employer] Adapta L [id number] SN: [id number] ??Implant Date 11/19/2012 LEAD DATA Atrial Lead: [employer] Medtronic [id number] ??Implant Date 09/30/1999 RV Lead: [employer] Medtronic 5092- 58 [id number] ??Implant Date 09/30/1999 Location of evaluation: [facility] Reason for evaluation: MD Request MEASUREMENTS Atrial Sensing - P wave: 1-2.8 mV Atrial Capture: 1.5 V @ 0.4 ms Atrial Lead Impedance: 692 ohms Ventricular Sensing - R wave: 5-16 mV RV Capture: 2.25 V @ 0.4 ms (stable high per trend) Ventricular Lead Impedance: Right - 455 ohms Underlying rhythm: Sinus Rhythm with conduction ~ 80bpm - occasional bradycardia noted (<50bpm) conducts with AP. DIAGNOSTIC DATA - since 10/20/23 Atrial paced: 33.1%, Ventricular paced: 2.3% Atrial episodes: 1 AHR episode on 03/03/24 lasting 1 min 44 seconds. Review of EGM difficult to determine if ?PAF with atrial undersensing vs VT (however not regular). Avg V rates 180bpm during episode. Patient with hx of PAF and on Xarelto. Associated symptoms: None reported. Ventricular episodes (detects >150 bpm x 4 beats): 1 episode on 12/05/23 lasting 5 seconds. Review of EGM suggests an SVT type rhythm. Associated symptoms: none reported. Histogram: appropriate heart rate distribution Magnet rate: 85 bpm ??Battery voltage: 2.76 V ??Estimated battery longevity: 4 years FINAL PARAMETERS Mode: AAIR <=> DDDR ??Lower rate: 60 bpm ??Upper rate: 130/130 bpm ?? AV Delay: 150/120 ms ??Mode Switch: 150 bpm ??Rate Response: Med/Low 09/05 Atrial - Amplitude: 2.25 V ??Pulse width: 0.4 ms ??Sensitivity: 0.5 mV ??Refractory: Auto 250 ms ??Polarity: Bipolar Right Ventricular - Amplitude: Adaptive 3.5 V ??Pulse width: 0.46 ms ??Sensitivity: 2.8 mV ??Polarity: Bipolar Changes made: Device temporarily reprogrammed, iterative adjustments made during interrogation/testing. No permanent changes made. Follow up: As requested while hospitalized - patient follows with [facility] for device [place]. Sia Broderick RN Nurse Clinician II [facility] Pacemaker/ICD Clinic [phone] Moises William MD CARDIAC SERVIC ES ORD * SCAN CORRESP-EKG RESULTS (03/09/2024 1:52 PM CDT) Narrative 03/09/2024 1:52 PM CDT Ordered by an unspecified provider. Other Clinical Staff OTHER * SCAN CORRESP-IMAGING (03/09/2024 1:52 PM CDT) Anatomical Region Laterality Modality Other Narrative 03/09/2024 1:52 PM CDT Ordered by an unspecified provider. Other Clinical Staff OTHER * SCAN-CARDIAC STRIP (03/09/2024 10:45 AM CDT) Scanner OTHER * (ABNORMAL) CBC WITH AUTO DIFFERENTIAL (03/09/2024 5:01 AM CDT) [facility] WHITE BLOOD COUNT 10.6 4.5 - 11.0 thou/cu mm 03/09/2024 5:43 AM CDT [facility] RED BLOOD COUNT 4.33 4.30 - 5.90 mil/cu mm 03/09/2024 5:43 AM CDT [facility] HEMOGLOBIN 14.1 13.5 - 17.5 g/dL 03/09/2024 5:43 AM CDT [facility] HEMATOCRIT 41.4 37.0 - 53.0 % 03/09/2024 5:43 AM CDT [facility] MCV 96 80 - 100 fL 03/09/2024 5:43 AM CDT [facility] MCH 32.6 26.0 - 34.0 pg 03/09/2024 5:[facility] MCHC 34.1 32.0 - 36.0 g/dL 03/09/2024 5:43 AM [facility] RDW 12.4 11.5 - 15.5 % 03/09/2024 5:43 AM [facility] PLATELET COUNT 213 140 - 440 thou/cu mm 03/09/2024 5:43 AM [facility] MPV 9.5 6.5 - 11.0 fL 03/09/2024 5:43 AM [facility] NRBC 0.0 % 03/09/2024 5:43 AM [facility] ABS NRBC 0.0 thou /cu mm 03/09/2024 5:43 AM [facility] % NEUT 52.8 % 03/09/2024 5:43 AM [facility] % LYMPH 32.0 % 03/09/2024 5:43 AM [facility] % MONO 11.7 % 03/09/2024 5:43 AM [facility] % EOS 2.2 % 03/09/2024 5:43 AM [facility] % BASO 0.9 % 03/09/2024 5:43 AM [facility] % IMMATURE GRAN (METAS,MYELOS,MD OS) 0.4 % 03/09/2024 5:43 AM CDT [facility] ABSOLUTE NEUTROPHILS 5.6 1.7 - 7.0 thou/cu mm 03/09/2024 5:43 AM [facility] ABSOLUTE LYMPHOCYTES 3.4(H) 0.9 - 2.9 thou/cu mm 03/09/2024 5:43 AM T [facility] ABSOLUTE MONOCYTES 1.2(H) <0.9 thou/cu mm 03/09/2024 5:43 AM CDT [facility] ABSOLUTE EOSINOPHILS 0.2 <0.5 thou/cu mm 03/09/2024 5:43 AM CDT [facility] ABSOLUTE BASOPHILS 0.1 <0.3 thou/cu mm 03/09/2024 5:43 AM CDT [facility] ABSOLUTE IMMATURE GRANULOCYTES(MET ,MYELOS,PROS) 0.0 <0.3 thou/cu mm 03/09/2024 5:43 AM CDT [facility] Blood BLOOD SPECIMEN / Unknown Venipuncture / Unknown 03/09/2024 5:01 AM CDT 03/09/2024 5:07 AM CDT Saravanan Means MD HEMATOLOGY [facility] [address] [place] [address], * Screening hemoglobin A1c AM (order if not done w/in 3 mos) (03/09/2024 5:01 AM CDT) HEMOGLOBIN A1C MONITORING (POCT) 5.6 <=6.4 % 03/09/2024 7:05 AM CDT [facility] Blood BLOOD SPECIMEN / Unknown Venipuncture / Unknown 03/09/2024 5:01 AM CDT 03/09/2024 5:07 AM CDT Narrative [facility] - 03/09/2024 7:05 AM CDT ? (<=6.9%) ? Indicates good control ? (7.0% to 7.9%) ? Indicates fair control ? (>=8.0%) ? Indicates poor control ?? NOTE: ??These thresholds are guidelines and ?individual targets may vary. Falsely low levels may be seen with: Recent Transfusion, Recent Significant Blood Loss, Hemolytic Diseases, or Falsely elevated levels may be seen with: Untreated Anemias, Splenectomy ? Saravanan Means MD CHEMISTRY [facility] [address] [place] [address], * Lipid Panel AM (03/09/2024 5:01 AM CDT) CHOLESTEROL,TOTAL 175 100 - 199 mg/dL 03/09/2024 5:42 AM CDT [facility] Comment: Cholesterol, Total Reference Ranges Desirable <200 mg/dL Borderline 200-239 mg/dL High >=240 mg/dL TRIGLYCERIDES 61 <150 mg/dL 03/09/2024 5:42 AM CDT [facility] HDL CHOLESTEROL 51 >40 mg/dL 5:42 AM CDT [facility] NON-HDL CHOLESTEROL 124 <145 mg/dl 03/09/2024 5:42 AM CDT [facility] CHOL/HDL RATIO 3.43 <4.50 03/09/2024 5:42 AM CDT [facility] LDL CHOLESTEROL 112 <=130 mg/dL 03/09/2024 5:42 AM CDT [facility] VLDL CHOLESTEROL 12 <=30 mg/dL 03/09/2024 5:42 AM CDT [facility] PROVIDER ORDERED STATUS RANDOM 03/09/2024 5:42 AM CDT [facility] Blood BLOOD SPECIMEN / Unknown Venipuncture / Unknown 03/09/2024 5:01 AM CDT 03/09/2024 5:07 AM CDT Saravanan Means MD CHEMISTRY [facility] [address] [place] [address], * (ABNORMAL) Basic metabolic panel AM (03/09/2024 5:01 AM CDT) SODIUM 143 136 - 145 mmol/L 03/09/2024 5:42 AM CDT [facility] POTASSIUM 3.7 3.5 - 5.1 mmol/L 03/09/2024 5:42 AM T [facility] CHLORIDE 109(H) 98 - 107 mmol/L 03/09/2024 5:42 AM T [facility] CO2,TOTAL 25 22 - 29 mmol/L 03/09/2024 5:42 AM T [facility] ANION GAP 9 5 - 18 03/09/2024 5:42 AM CDT [facility] GLUCOSE 99 70 - 99 mg/dL 03/09/2024 5:42 AM T [facility] CALCIUM 8.8 8.8 - 10.2 mg/dL 03/09/2024 5:42 AM [facility] BUN 19 8 - 23 mg/dL 03/09/2024 5:42 AM [facility] CREATININE 1.03 0.70 - 1.20 mg/dL 03/09/2024 5:42 AM [facility] BUN/CREAT RATIO 18 10 - 20 5:42 AM T [facility] eGFR 71(L) >90 mL/min/1.7 3m2 03/09/2024 5:42 AM T [facility] Comment:As of 2021, eG FR is calculated by the CKD-EPI creatinine equation without race adjustment. ??eGFR can be influenced by muscle mass, exercise, and diet. ??The reported eGFR is an estimation only and is only applicable if the renal function is stable. Blood BLOOD SPECIMEN / Unknown Venipuncture / Unknown 03/09/2024 5:01 AM CDT 03/09/2024 5:07 AM CDT Saravanan Means MD CHEMISTRY [facility] [address] [place] [address], * SCAN-CARDIAC STRIP (03/08/2024 11:20 PM CDT) Scanner OTHER * (ABNORMAL) TROPONIN T (HS) ONE TIME (03/08/2024 11:08 PM CDT) TROPONIN T HS 198(H) 6-15 ng/L ng/L 03/08/2024 11:54 PM CDT [facility] Blood BLOOD SPECIMEN / Unknown Venipuncture / Unknown 03/08/2024 11:08 PM CDT 03/08/2024 11:14 PM CDT Saravanan Means MD CHEMISTRY [facility] [address] [place] [address], * (ABNORMAL) TROPONIN T (HS) ACUTE W/2HR REFLEX (03/08/2024 9:03 PM CDT) TROPONIN T HS 179(H) 6-15 ng/L ng/L 03/08/2024 10:01 PM CDT [facility] Blood BLOOD SPECIMEN / Unknown Butterfly / Unknown 03/08/2024 9:03 PM CDT 03/08/2024 9:24 PM CDT Narrative [facility] - 03/08/2024 10:01 PM CDT hs-cTnT (Elecsys Troponin T Gen 5) concentration (s) above the sex-specific 99th percentile (16 ng/L or greater for males or 11 ng/L or greater for females) are indicative of myocardial injury. If initial hs-cTnT <=100 ng/L at presentation, a 0h/2h ABSOLUTE (ng/L) delta change (rising or falling) of >=10 ng/L suggests a significant change, whereas a 0h/2h delta change <=3 ng/L suggests no significant change. If initial hs-cTnT >100 ng/L at presentation, a 0h/2h/ RELATIVE (percent, %) delta change of 20% is suggested to distinguish patients with acute vs. chronic myocardial injury. There are multiple etiologies that can cause hs-cTnT increases above the 99th percentile (myocardial injury) other than acute myocardial infarction. Clinical context and careful clinical evaluation are critical for diagnosis and risk-stratification. The diagnosis of acute myocardial infarction requires a rising and/or falling pattern in hs-cTnT concentrations with at least one value above the sex-specific 99th percentile PLUS at least one of the following clinical criteria: ischemic symptoms, new or presumed new significant ST-T wave changes or new LBBB, development of pathological Q waves, imaging evidence of new loss of viable myocardium or new regional wall motion abnormality, or identification of intracoronary atherothrombosis or an acute angiographic culprit on coronary angiography. In appropriate low-risk patients with a non-ischemic electrocardiogram without active chest pain with a symptom onset >3-hours without recurrence, a single initial hs-cTnT<6 ng/L identifies patient with a very low risk in emergency department patient population. Saravanan Means MD CHEMISTRY Performing Organization Address [facility]/ZIP Co de Phone Number [facility] [address] [place] [address], * BUN (03/08/2024 9:03 PM CDT) BUN 21 8 - 23 mg/dL 03/08/2024 10:01 PM CDT [facility] Blood BLOOD SPECIMEN / Unknown Butterfly / Unknown 03/08/2024 9:03 PM CDT 03/08/2024 9:24 PM CDT Saravanan Means MD CHEMISTRY Performing Organization Address [facility] Co de Phone Number [facility] [address] [place] [address], [place] * (ABNORMAL) PROTIME-INR (03/08/2024 9:03 PM CDT) INR 1.3(H) <1.3 03/08/2024 9:52 PM CDT [facility] PROTIME 14.3(H) 10.3 - 12.3 sec 03/08/2024 9:52 PM CDT [facility] Blood BLOOD SPECIMEN / Unknown Butterfly / Unknown 03/08/2024 9:03 PM CDT 03/08/2024 9:24 PM CDT Narrative [facility] - 03/08/2024 9:52 PM CDT ?Therapeutic Range 2.0-3.0 for most anticoagulated patients 2.5-3.5 or 4.0 for high risk patients The INR is only used for patients on stable oral anticoagulant therapy. It makes no significant contribution to the diagnosis or treatment of patients whose Protime is prolonged for other reasons. INR results are increased when heparin levels exceed 1.0 U/mL, which corresponds to an aPTT >125 seconds if the patient is on UFH. Saravanan Means MD HEMATOLOGY [facility] [address] [place] [address], from Last 3 Months Advance Directives * Full Code (Latest Code Status on File) Date Activated Date Inactivated Comments 03/08/2024 8:27 PM 03/10/2024 9:13 PM Question Answer Comments Code Status Discussion: Reviewed Preferences * Full Code Date Activated Date Inactivated Comments 12/16/2010 11:55 AM 12/16/2010 6:36 PM * Full Code Date Activated Date Inactivated Comments 12/16/2010 10:32 AM 12/16/2010 11:55 AM * Full Code Date Activated Date Inactivated Comments 08/17/2006 7:04 AM 08/17/2006 10:30 PM * Full Code Date Activated Date Inactivated Comments 01/16/2005 9:47 AM 01/16/2005 9:51 AM Care Teams Beauty Culturist Apprentice Relationship Specialty Start Date End Date Raoul Mohamud MD [address] [place], [place] [id number] PCP - General 11/18/12
--- OUTSIDE RECORDS SUMMARY | 2024-03-12 03:42 | XMS_ITS | Clinical Summary ---
Author Organization [facility] Address [address] [place] [address]. 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 Height 193 cm (6' 4) 05/28/2018 12:00 PM [employer] F[employer]ER pe r H & P Body Mass Index 24.71 05/28/2018 12:00 PM 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 [employer]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 Plan of Treatment Not on file Medical Devices Implanted Type Area Will Call Clerk Device Identifier Shelf Expiration Date Model / Serial / Lot Bone Cement Radiopaque Simplex P Speedset 6192-1-001 Implanted:Qty: 1 on 06/07/2018 by Kermit Dickens MD at [facility] Cement, Bone Left: Knee [employer] 10/04/2019 6192-1-001 / / [id number] Bone Cement Simplex Speed Set Implanted:Qty: 2 on 04/29/2012 by Kermit Dickens MD at [facility] Right: Knee [employer] 11/03/2013 6192-1-001 / / [id number] Imp Comp Patella Yamileth Ii 9x32mm [id number] Implanted:Qty: 1 on 04/29/2012 by Kermit Dickens MD at [facility] Right: Knee [employer] 02/03/2022 [id number] / / [id number] Imp Comp Femoral Yamileth Ii Cr Oxin Sz 6 Rt [id number] Implanted:Qty: 1 on 04/29/2012 by Kermit Dickens MD at [facility] Right: Knee [employer] 08/06/2021 [id number] / / [id number] Imp Baseplate Tibial Yamileth Ii Sz 7 Rt Ti [id number] Implanted:Qty: 1 on 04/29/2012 by Kermit Dickens MD at [facility] Right: Knee [employer] 08/06/2021 [id number] / / [id number] Size 7-8 13mm Legion Cr Xlpe High Flexion Articular Insert Implanted:Qty: 1 on 04/29/2012 by Kermit Dickens MD at [facility] Right: Knee [employer] 07/06/2020 [id number] / / [id number] Imp [place] Arthrex Bio-Swivelock 5.5mm Ar-2323bcc Implanted:Qty: 1 on 07/11/2013 by Kermit Dickens MD at [facility] Left: Shoulder [employer] 08/05/2013 AR-2323BCC / / [id number] Imp [place] Ar[employer]rex Bio-Swivelock 4.75mm Ar-2324bcm Implanted:Qty: 1 on 07/11/2013 by Kermit Dickens MD at [facility] Left: Shoulder [employer] 01/02/2015 AR-2324BCM / / [id number] Wire Joseph 0.054x4 Implanted:Qty: 1 on 07/17/2014 by Sarthak Pichardo MD at [facility] Left: Toe G SOURCE 78.2040 / / [id number] Wire Joseph 0.045x4 Implanted:Qty: 1 on 07/17/2014 by Sarthak Pichardo MD at [facility] Left: Toe G SOURCE 78.2020 / / 4l Femur Cr Implanted:Qty: 1 on 06/07/2018 by Kermit Dickens MD at [facility] Left: Knee [employer] 01/02/2021 90-SRK-[id number] 00 / / [id number] Size 5 Tibia Tray Implanted:Qty: 1 on 06/07/2018 by Kermit Dickens MD at [facility] Left: Knee [employer] 07/17/2021 90-SRK-2005 00 / / [id number] Patella 33mm Implanted:Qty: 1 on 06/07/2018 by Kermit Dickens MD at [facility] Left: Knee [employer] 03/12/2021 90-SRK-4203 00 / / [id number] Insert Cr 4 16mm Implanted:Qty: 1 on 06/07/2018 by Kermit Dickens MD at [facility] Left: Knee [employer] 06/07/2021 90-SRK-1104 16 / / [id number] Advance Directives For more information, please contact: [phone] Documents on File Type Date Recorded Patient Fuel Conversion Technician Expl anation Advance Directives and Living Will [...] Agents on File Name Relationship Healthcare Agent [facility] Communication Allison Ailyn Spouse Health Care Agent Jacob Robertson Relative First Alternate Health Care Agent Domenico Robertson Son Second Alternate Health Care Agent Care Teams Patent Drafter Relationship Specialty Start Date End Date Idania Iraheta MD [facility] & [address] [address] PCP - General Internal Medicine 06/30/14
--- OUTSIDE RECORDS SUMMARY | 2024-03-12 03:42 | XMS_ITS | Encounter Summary ---
Author Organization [facility] Address [address] [place] [phone] Phone Care Team Providers Care Retread Supervisor Name Role Phone Idania Iraheta MD Primary Care Provider Rigoberto Rivera MD Unavailable Encounter Details Date Type Department Care Team (Late st Contact Info) Description 03/08/2024 Telephone [facility] [address] [place] [phone] Yasmin Ramachandran RN [address] [place] [address] Social History Tobacco Use Types Packs/Day Years [...] Encounter - Yasmin Ramachandran RN - 03/08/2024 4:06 PM CDT Yasmin Ramachandran RN, 03/08/2024 4:06 PM documented in this encounter Plan of Treatment Upcoming Encounters Date Type Department Care Team (Late st Contact Info) Description 04/19/2024 8:00 AM CDT Nurse Only [facility] [address] [place] [address] Scheduled Discharge Disposition: Discharged to home or self care documented as of this encounter Visit Diagnoses Not on filedocumented in this encounter Care Teams Retread Supervisor Relationship Specialty Start Date End Date Idania Iraheta MD [address] [place] [address] PCP - General Outside Provider 08/15/15 Rigoberto Rivera MD [address] [place] [address] PCP - Cardiology Cardiology 04/01/17 documented as of this encounter
--- OUTSIDE RECORDS SUMMARY | 2024-03-12 03:42 | XMS_ITS | Encounter Summary ---
Author Organization [facility] Address [address] [place] [phone] Phone Care Team Providers Care Disbursement Clerk Name Role Phone Idania Iraheta MD Primary Care Provider Rigoberto Rivera MD Unavailable Reason for Visit * Reason Onset Date Comments Chest Pain 03/08/2024 Encounter Details Date Type Department Care Team (Late st Contact Info) Description 03/08/2024 Nurse Triage [facility] [address] [place] [address] Martha Smith, RN [address] [place] [address] Chest Pain Social History Tobacco Use Types [...] last menstrual period? na Protocols used: Chest [id number] documented in this encounter Plan of Treatment Upcoming Encounters Date Type Department Care Team (Late st Contact Info) Description 04/19/2024 8:00 AM CDT [facility] [address] [place] [id number] Scheduled Discharge Disposition: Discharged to home or self care documented as of this encounter Visit Diagnoses Not on filedocumented in this encounter Care Teams Disbursement Clerk Relationship Specialty Start Date End Date Idania Iraheta MD [address] [place] [address] PCP - General Outside Provider 08/15/15 Rigoberto Rivera MD [address] [place] [address] PCP - Cardiology Cardiology 04/01/17 documented as of this encounter
--- OUTSIDE RECORDS SUMMARY | 2024-03-12 03:42 | XMS_ITS | Encounter Summary ---
Author Organization [facility] Address [address] [place] [phone] Phone Care Team Providers Care Sodium Chlorite Operator Name Role Phone Idania Iraheta MD Primary Care Provider Rigoberto Rivera MD Unavailable Reason for Visit * Reason Comments Cardiac Device Evaluation Remote pacemak er check Encounter Details Date Type Department Care Team (Late st Contact Info) Description 01/19/2024 8:00 AM CDT [facility] [address] [phone] Sánchez Simeon, JENNA [address] [phone] Cardiac pacemaker in situ Discharge Disposition: Discharged [...] reviewed. Since the last rep check in [place] there has been 14 mode switch episodes [...] stable at 2.5v/0.4ms. Threshold in person in [place] on 10/20/23 was 2v/0.4ms. Normal pacemaker function. Remote data conveyed to the provider. See attached documentation under the Cardiology/Echo section of Results Review. documented in this encounter Plan of Treatment Upcoming Encounters Date Type Department Care Team (Late st Contact Info) Description 04/19/2024 8:00 AM CDT [facility] [address] [place] [address] Scheduled Discharge Disposition: Discharged to home or [...] situ documented in this encounter Care Teams Sodium Chlorite Operator Relationship Specialty Start Date End Date Idania Iraheta MD [address] [place] [address] PCP - General Outside Provider 08/15/15 Rigoberto Rivera MD [address] [place] [address] PCP - Cardiology Cardiology 04/01/17 documented as of this encounter
--- OUTSIDE RECORDS SUMMARY | 2024-03-12 03:42 | XMS_ITS | Encounter Summary ---
Author Organization [place] Address [facility] [place] [address] Care Team Providers Care Bottoming Machine Operator Name Role Phone Nico Arnold MD Primary Care Provider [phone]- [phone] Raoul Rowe MD Primary Care Provider Idania Iraheta MD Primary Care Provider Encounter Details Date Type Department Care Team (Late st Contact Info) Description 08/17/[address] [place] [address] Nico Arnold MD [facility] [address] [place] [address] [facility] PROCEDURE NOTE (Primary Dx) Social History [...] as of this encounter Visit Diagnoses Diagnosis [facility] PROCEDURE NOTE- Primary documented in this encounter Care Teams Bottoming Machine Operator Relationship Specialty Start Date End Date Nico Arnold MD [facility] [address] [place] [address] PCP - General 08/20/01 04/22/12 Raoul Rowe MD [facility] [address] [place] [address] PCP - General 04/23/12 06/29/14 Idania Iraheta MD [facility] [address] [place] [address] PCP - General Internal Medicine 06/30/14 documented as of this encounter
--- OUTSIDE RECORDS SUMMARY | 2024-03-12 03:42 | XMS_ITS | Encounter Summary ---
Author Organization [place] Address [facility] [place] [address] Care Team Providers Care Sharebroker Name Role Phone Nico Arnold MD Primary Care Provider [phone]- [phone] Raoul Rowe MD Primary Care Provider Idania Iraheta MD Primary Care Provider Encounter Details Date Type Department Care Team (Late st Contact Info) Description 01/16/[address] [place] [address] Nico Arnold MD [facility] [address] [place] [address] [facility] DISCHARGE SUMMARY (Primary Dx) Social [...] Primary documented in this encounter Care Teams Sharebroker Relationship Specialty Start Date End Date Nico Arnold MD [facility] [address] [place] [address] PCP - General 08/20/01 04/22/12 Raoul Rowe MD [facility] [address] [place] [address] PCP - General 04/23/12 06/29/14 Idania Iraheta MD [facility] [address] [place] [address] PCP - General Internal Medicine 06/30/14 documented as of this encounter
== END 2024-03-08 18:46 | disposition home or self-care (01) ==
LOC: AMB 03-12 03:39
PROVIDERS: PCP Internal Medicine; Visit Provider Family Medicine
DX: I21.4 Non-ST elevation (NSTEMI) myocardial infarction (principal); R79.89 Other specified abnormal findings of blood chemistry
CPT/HCPCS: A0425; A0427

== ENCOUNTER 2024-03-22 13:45 | Outpatient (CLI) | payer MEDICARE, BC, SELFPAY | END 2024-03-22 13:46 | disposition home or self-care (01) | LOC: NFLDREF 13:46 | PROVIDERS: PCP Internal Medicine; Visit Provider Internal Medicine | DX: I25.10 Atherosclerotic heart disease of native coronary artery without angina pectoris (principal) | CPT/HCPCS: 80048 ==

== ENCOUNTER 2024-04-29 09:41 | Emergency (ER) | payer MEDICARE, BC, SELFPAY ==
[2024-04-29] VITALS (9 sets, daily range): BP systolic 138–161; BP diastolic 81–106; PULSE 64–74; RESP 12–21; TEMP 35.8; O2SAT 93–97; BMI 25.0
--- NOTE | 2024-04-29 11:20 | ED_ITS ---
HPI - General Adult General Chief complaint: Extremity Pain/Injury, Upper Stated complaint: left shoulder pain Time Seen by Provider: 04/29/24 11:20 History of Present Illness HPI narrative: 84-year-old gentleman with his history of atrial fibrillation and pacemaker, coronary disease with a non ST elevation NJ 1 month ago in March. He was treated here and then transferred to [facility]. Prior to that his biological scientist had been through [facility]. In the hospital in March coronary angiogram showed 90% mid circumflex stenosis. He underwent drug-eluting stent placement. Echo showed EF of 58%. He was discharged with a plan to have him on Plavix, Eliquis, atorvastatin, Toprol XL, amlodipine. He was discharged from [place] with atrial fibrillation and controlled ventricular response. Plan was for him to follow up with his biological scientist here in [place] in 1 month. In actuality his previous biological scientist was Dr. Rivera who is now through [facility]. He has an appointment to see Dr. Porter at the office in [place] in 4 days, next Thursday. He has been taking the prescribed Plavix, Eliquis, metoprolol. He has not been feeling any palpitations, shortness of breath, chest pain or any other symptoms of AFib. No dizziness. Beginning yesterday he began to have an ache in his left shoulder and a little bit into the left top of his trapezius and into his left triceps. He does not recall any new activity or injury. He has been going to cardiac rehab and doing exercises and elliptical but not working particularly hard. He has not had any pain during cardiac rehab or any chest pain or dyspnea during any exercise. He was doing some light house activities like light housework, balancing his checkbook yesterday afternoon. He was not just sitting on the couch. Yesterday evening the pain got a bit more bothersome. He was contemplating whether not it could be an anginal symptom and whether not he has taken nitroglycerin. He decided not to take nitro. He took 2 tablets of Tylenol and was able to go to bed. He said he slept well last night. This morning the pain in his left shoulder is still there. It does not radiate through to his back. No pain radiating all the way down to his forearm or hand. No numbness or weakness in the arm. No swelling. No bruising. No rash. No anterior chest pain. No palpitations. No nausea. No shortness of breath. No abdominal pain. He says the shoulder pain is more comfortable if he keeps his arm down with his hand resting gets stomach, like his arms in a sling. It is worse when he is moving his arm around but he is not limited in his range of motion. Related Data Home Medications ?Medication ?Instructions ?Recorded ?Confirmed cholecalciferol (vitamin D3) 25 25 mcg PO QDAY 02/10/22 04/29/24 mcg (1,000 unit) capsule multivitamin 1 tab PO QDAY 02/10/22 04/29/24 amlodipine 5 mg tablet 10 mg PO QDAY 03/22/24 04/29/24 atorvastatin 40 mg tablet 40 mg PO DAILY 03/22/24 04/29/24 clopidogrel 75 mg tablet 75 mg PO DAILY 03/22/24 04/29/24 metoprolol succinate 25 mg 25 mg PO DAILY 03/22/24 04/29/24 tablet,extended release 24 hr nitroglycerin 0.4 mg sublingual 0.4 mg sublingual Q5M PRN 03/22/24 04/29/24 tablet simethicone 80 mg chewable tablet 80 mg PO BID-QID PRN 03/22/24 04/29/24 Allergies Allergy/AdvReac Type Severity Reaction Status Date / Time diltiazem Allergy Mild Unknown Verified 03/22/24 13:37 Sulfa (Sulfonamide Allergy Mild Verified 03/22/24 13:37 Antibiotics) [facility] Medical History (Updated 04/29/24 @ 13:08 by Rudolph Velez MD) History of renal calculi (2018) ?Z87.442 - Personal history of urinary calculi (ICD-10) Surgical History (Updated 03/22/24 @ 13:46 by Idania Iraheta MD) History of malignant melanoma ?Z85.820 - Personal history of malignant melanoma of skin (ICD-10) History of blepharoplasty ?Z98.890 - Other specified postprocedural states (ICD-10) History of foot surgery (12/12/10) ?Z98.890 - Other specified postprocedural states (ICD-10) History of squamous cell carcinoma in situ (SCCIS) of skin (2019) ?Z86.007 - Personal history of in-situ neoplasm of skin (ICD-10) Bleeding internal hemorrhoids (2016) ?K64.8 - Other hemorrhoids (ICD-10) Basal cell carcinoma of scalp (12/12/10) ?C44.41 - Basal cell carcinoma of skin of scalp and neck (ICD-10) History of left ankle joint replacement ?Z96.662 - Presence of left artificial ankle joint (ICD-10) History of total knee replacement (2011) ?Z96.659 - Presence of unspecified artificial knee joint (ICD-10) History of shoulder surgery (12/12/10) ?Z98.890 - Other specified postprocedural states (ICD-10) History of hernia repair (12/12/10) ?Z98.890 - Other specified postprocedural states (ICD-10) ?Z87.19 - Personal history of other diseases of the digestive system (ICD-10) History of blepharoplasty (2017) ?Z98.890 - Other specified postprocedural states (ICD-10) Status post left foot surgery (11/20/10) ?Z98.890 - Other specified postprocedural states (ICD-10) S/P right knee arthroscopy (11/20/10) ?Z98.890 - Other specified postprocedural states (ICD-10) History of hip surgery (07/21/19) ?Z98.890 - Other specified postprocedural states (ICD-10) Social History What is your current living situation?: I presently have a place to live Problems where you live: no known problems In the past 12 months, utilities in danger of being shut off: no In past 12 months, lack of transportation kept you from medical appts, meetings, work, or getting things needed for daily living: no In the past 12 mos, have been you worried that your food would run out before you had money to buy more?: never true In the past 12 mos, the food you bought just didn't last and you didn't have money to buy more?: never true Smoking Status: Never smoker How often do you have a drink containing alcohol: never AUDIT-C Alcohol total score: 0 Non-prescribed substance use: denies use How often does anyone, including family, friends and others, physically hurt you : never How often does anyone, including family, friends and others, insult or talk down to you: never How often does anyone, including family, friends and others, threaten you with harm: never How often does anyone, including family, friends and others, scream or curse at you: never Little interest or pleasure in doing things: not at all Feeling down, depressed, or hopeless: not at all Exam Narrative: Exam Narrative: Constitutional: Appears well-developed and well-nourished. Alert. Conversant. Non toxic. HENT: Head: Atraumatic. Nose: Nose normal. Mouth/Throat: Oral mucosa is clear and moist. no trismus. Pharynx normal. Tonsils symmetric. No tonsillar enlargement, erythema, or exudate. Eyes: Conjunctivae normal. EOM normal. Pupils equal, round, and reactive to light. No scleral icterus. Neck: Normal range of motion. Neck supple. No tracheal deviation present. No JVD Cardiovascular: Normal rate, irregularly irregular rhythm. No gallop. No friction rub. No murmur heard. Symmetric radial and PT artery pulses Pulmonary/Chest: Effort normal. No stridor. No respiratory distress. No wheezes. No rales. No rhonchi . No tenderness. Abdominal: Soft. Bowel sounds normal. No distension. No mass. No tenderness. No rebound. No guarding. Musculoskeletal: RUE: Normal range of motion in his shoulder but he does note pain is worse when he tries to abduct his arm and bring his arm up over his head. Pain is much better when he has gone down. No rash. No bruising. No swelling. No neck pain or tenderness. Humerus nontender. Elbow nontender. Forearm, wrist, hand nontender.No deformity. LUE: Normal range of motion. No tenderness. No deformity RLE: Normal range of motion. No edema. No tenderness. No deformity LLE: Normal range of motion. No edema. No tenderness. No deformity Lymph: No cervical adenopathy. Neurological: Alert and oriented to person, place, and time. Normal strength. CN II-VII intact. No sensory deficit. GCS eye subscore is 4. GCS verbal subscore is 5. GCS motor subscore is 6. Normal coordination Intact sensory function bilaterally in the C5, C6, C7, C8, T1 dermatomes. Strength 5/5 bilaterally in the deltoid, biceps, triceps, hospital monitor, thumb, fingers. Skin: Skin is warm and dry. No rash noted. No pallor. Normal capillary refill. Psychiatric: Normal mood. Normal affect. Const: Vital Signs, click to edit/add: Vital Signs - 24 hr 04/29/24 09:50 04/29/24 10:30 04/29/24 11:00 Temperature 96.5 F L Pulse Rate 74 66 Pulse Rate [Pulse Oximeter] 67 Respiratory Rate 18 12 21 Blood Pressure 160/101 H 158/81 H Blood Pressure [Ri ght Upper Arm] 138/82 Pulse Oximetry 97 95 95 Oxygen Delivery Me thod Room Air 04/29/24 11:30 Temperature Pulse Rate 68 Pulse Rate [Pulse Oximeter] Respiratory Rate 20 Blood Pressure 161/106 H Blood Pressure [Ri ght Upper Arm] Pulse Oximetry 96 Oxygen Delivery Me thod Course Vital Signs Vital signs: Initial Vital Signs Temperature 96.5 F L 04/29/24 09:50 Temperature Source Temporal Artery Scan 04/29/24 09:50 Pulse Rate 67 04/29/24 09:50 Pulse Rhythm Regular 04/29/24 09:50 Respiratory Rate 18 04/29/24 09:50 Blood Pressure 138/82 04/29/24 09:50 Blood Pressure Mean 100 04/29/24 09:50 Blood Pressure Position Sitting 04/29/24 09:50 Pulse Oximetry 97 04/29/24 09:50 Oxygen Delivery Method Room Air 04/29/24 09:50 Vital Signs Temperature 96.5 F L 04/29/24 09:50 Pulse Rate 67 04/29/24 09:50 Respiratory Rate 18 04/29/24 09:50 Blood Pressure 138/82 04/29/24 09:50 Pulse Oximetry 97 04/29/24 09:50 Oxygen Delivery Method Room Air 04/29/24 09:50 Temperature 96.5 F L 04/29/24 09:50 Pulse Rate 68 04/29/24 11:30 Respiratory Rate 20 04/29/24 11:30 Blood Pressure 161/106 H 04/29/24 11:30 Pulse Oximetry 96 04/29/24 11:30 Oxygen Delivery Method Room Air 04/29/24 09:50 Medical Decision Making MDM Narrative Medical decision making narrative: This patient presents to the ER today for evaluation of left shoulder achiness and pain that is been occurring since yesterday afternoon. He is not having any chest pain or back pain or shortness of breath but does have a history of coronary disease with a recent [place] (and stent placement done at [facility]). When he had his heart attack he was having some chest discomfort radiating to both of his shoulders. Today he is not having any chest pain is only having pain in his left shoulder, but out of an abundance of caution he cam e here to the ER with his . We considered possible ACS, however workup with EKG and troponin is negative. He has been religiously compliant with his Plavix and Eliquis. Given time since onset of symptoms, I do not think the patient needs to be admitted for further sets of enzymes. Consider possible Chad syndrome. EKG shows no evidence for pericarditis. Clinical presentation not suggestive of myocarditis. Chest x-ray shows no evidence for pneumonia, pneumothorax, pulmonary edema, pleural effusion, rib fracture, cardiomegaly. Mediastinum is normal on the x-ray. The patient has no ripping or tearing pain through to the back and has symmetric pulses on exam, no other acute neuro findings so I doubt aortic dissection. Risk of radiation and contrast exposure would outweigh the benefit of CT angiogram. We considered PE for this patient. However he is not having any pleuritic chest pain, shortness of breath, tachycardia, hypoxia, difficulty breathing. He has no signs of DVT. He has been therapeutic in taking his Eliquis. At this point I think he is extremely low risk for PE and the risk of contrast nephropathy would outweigh any potential benefit of CT pulmonary angiogram. No wheezing or bronchospasm to suggest COPD/asthma. He does have a known history of paroxysmal AFib and has had multiple previous cardioversions. He has a pacemaker in place. It sounds like his AFib had been well controlled and he had been in sinus rhythm for years. However he did develop some AFib while he was in the hospital with his heart attack and apparently was discharged from [facility] in AFib. He is not having any symptoms of AFib as he did in years past (no dizziness, no trouble breathing, no palpitations today or recently). EKG does show he has AFib with controlled ventricular response. He is on Eliquis for stroke prophylaxis and metoprolol for rate control. He is not symptomatic with his AFib. I do not think is causing his shoulder ache. We attempted to contact his biological scientist who is Dr. Rivera through the [facility] system. We were unsuccessful. Patient is comfortable are ranging his own follow-up with his biological scientist. He would not want to undergo cardioversion for AFib today. He is not having any symptoms. No signs of chest wall cellulitis, shingles, injury. X-ray of the shoulder negative for fracture or dislocation, but does show some chronic arthritic changes. No redness or warmth of the shoulder suggest a septic arthritis. No signs of acute limb ischemia. No evidence for left upper extremity DVT. No associated neck pain or any numbness or weakness down the arm to suggest cervical radiculopathy. With reasonable clinical confidence, I think the patient is safe for outpatient follow up. Discussed return precautions. Questions answered. Patient voices comfort with the plan. Lab Data Labs: Lab Results 04/29/24 Range/Units 11:57 WBC 8.89 (4.50-11.00) K/uL RBC 4.24 L (4.30-5.90) m/uL Hgb 13.7 (13.5-17.5) gm/dL Hct 41.8 (37.0-53.0) % MCV 99 (80-100) fL MCH 32 (26-34) pg MCHC 33 (32-36) gm/dL RDW Coeff of [place] 12.9 (11.5-15.5) % Plt Count 202 (140-440) K/uL Neut % (Auto) 65.3 (42.0-72.0) % Lymph % (Auto) 20.9 (20-44) % [place] % (Auto) 10.9 (0.0-11.0) % Eos % (Auto) 2.2 (0.0-7.0) % Baso % (Auto) 0.6 (0.0-3.0) % Neut # (Auto) 5.80 (1.7-7.0) K/uL Lymph # (Auto) 1.86 (0.90-2.90) K/uL [place] # (Auto) 1.00 H (0.00-0.90) K/UL Eos # (Auto) 0.20 (0.00-0.50) K/uL Baso # (Auto) 0.05 (0.00-0.30) K/uL Abs Immat Gran (auto) 0.01 (0.00-0.30) K/uL Imm/Tot Granulo (auto) 0.1 % Sodium 138 (135-149) mmol/L Potassium 4.0 (3.6-5.1) mmol/L Chloride 105 (96-114) mmol/L Carbon Dioxide 24 (20-32) mmol/L Anion Gap 9 (7-15) mEq/L BUN 22 (7-30) mg/dL Creatinine 1.1 (0.5-1.5) mg/dL Estimated Creat Clear 60.28 Estimated GFR 66 ml/min Glucose 90 (60-115) mg/dL Calcium 9.3 (8.4-10.6) mg/dL Troponin I < 0.01 L (0.01-0.04) ng/mL Imaging Data Chest x-ray: Attestation: I have reviewed the pertinent imaging results. Radiologist's impression: IMPRESSION: No acute or significant findings. XR Left shoulder: Attestation: I have reviewed the pertinent imaging results. Radiologist's impression: Findings/Impression: Bones: Elevation of the humeral head, likely related to chronic rotator cuff insufficiency. Otherwise, alignment is normal. No displaced fractures or bone lesions. Chronic changes around the greater tuberosity with orthopedic anchor. Joint spaces: Mild acromioclavicular degenerative changes. Soft tissues: Unremarkable. ECG Data Attestation: I personally reviewed and interpreted this ECG as follows: Interpretation: Atrial fibrillation Rate: 77 [place]: Not applicable QRS axis: Normal axis. No pathologic Q-waves. ST segment/T wave: Nonspecific T-wave flattening. QTc: 470. Prolonged QT Discharge Plan Discharge Clinical Impression: Acute pain of left shoulder, Atrial fibrillation with controlled ventricular response Patient Disposition: Home, Self-Care Condition: Stable Instructions: A-fib (Atrial Fibrillation) (ED), Shoulder Pain (ED) Additional Instructions: As we discussed, please follow-up with your biological scientist on Thursday. Continue on your current medications until you see your biological scientist. It is okay to use Tylenol if needed for shoulder ache. Monitor your shoulder pain and other symptoms carefully. If you are having worsening shoulder pain, any chest pain, trouble breathing, or other worsening symptoms, or any concerns please come back to the ER right away. Prescriptions: No Action atorvastatin 40 mg tablet 40 mg PO DAILY clopidogrel 75 mg tablet 75 mg PO DAILY nitroglycerin 0.4 mg tablet, sublingual 0.4 mg sublingual Q5M PRN amlodipine 5 mg tablet 10 mg PO QDAY metoprolol succinate 25 mg tablet extended release 24 hr 25 mg PO DAILY simethicone 80 mg tablet,chewable 80 mg PO BID-QID PRN cholecalciferol (vitamin D3) 25 mcg (1,000 unit) capsule 25 mcg PO QDAY multivitamin Tablet 1 tab PO QDAY Follow Up/Referrals: Idania Iraheta MD [Primary Care Provider] - Stand Alone Forms: [facility] Info Instructions
--- NOTE | 2024-04-29 11:49 | CRLHL7_ITS ---
For Patients: As a result of the Cures Act, medical imaging exams and procedure reports are released immediately into your electronic medical record. You may view this report before your referring provider. If you have questions, please contact your health care provider. INDICATION: Chest pain. Left shoulder pain. TECHNIQUE: Chest 2 views. COMPARISON: March 08, 2024. FINDINGS: Cardiovascular and mediastinum: Stable heart size and vasculature. Unchanged left chest wall pacemaker device. Lungs and pleural spaces: Lungs are clear. No sign of infiltrate or mass. No sign of pleural effusion. No pneumothorax. Bones and soft tissues: No significant findings. IMPRESSION: No acute or significant findings. Dictated by Lawrence Keenan MD @ 04/29/2024 12:32:02 PM (Electronically Signed)
--- NOTE | 2024-04-29 11:54 | CRLHL7_ITS ---
For Patients: As a result of the Cures Act, medical imaging exams and procedure reports are released immediately into your electronic medical record. You may view this report before your referring provider. If you have questions, please contact your health care provider. Indication: Trauma. Technique: Left shoulder, 3 views. Comparison: None. Findings/Impression: Bones: Elevation of the humeral head, likely related to chronic rotator cuff insufficiency. Otherwise, alignment is normal. No displaced fractures or bone lesions. Chronic changes around the greater tuberosity with orthopedic anchor. Joint spaces: Mild acromioclavicular degenerative changes. Soft tissues: Unremarkable. Dictated by Lawrence Keenan MD @ 04/29/2024 12:33:53 PM (Electronically Signed)
[2024-04-29 12:02] LABS: Basophils Absolute Auto 0.05 K/uL (0.00-0.30); Basophils Percent Auto 0.6 % (0.0-3.0); Eosinophils Percent Auto 2.2 % (0.0-7.0); Hematocrit 41.8 % (37.0-53.0); Hemoglobin* 13.7 gm/dL (13.5-17.5); Immature Granulocytes Abs Auto 0.01 K/uL (0.00-0.30); Immature Granulocytes Pct Auto 0.1 %; Lymphocytes Absolute Auto 1.86 K/uL (0.90-2.90); Lymphocytes Percent Auto 20.9 % (20-44); Mean Corpuscular HGB Conc 33 gm/dL (32-36); Mean Corpuscular Hemoglobin 32 pg (26-34); Mean Corpuscular Volume 99 fL (80-100); Monocytes Percent Auto 10.9 % (0.0-11.0); Neutrophils Percent Auto 65.3 % (42.0-72.0); Platelet Count* 202 K/uL (140-440); RDW Coefficient of Variation % 12.9 % (11.5-15.5); Red Blood Count 4.24 m/uL (4.30-5.90); Slide Review Reflex No; White Blood Count* 8.89 K/uL (4.50-11.00)
--- OUTSIDE RECORDS SUMMARY | 2024-04-29 12:04 | XMS_ITS | Referral Summary ---
Author Organization [facility] Address [facility] [place] [address] Care Team Providers Care Infusion Rn Name Role Phone Idania Iraheta MD Primary Care Provider Allergies Active Allergy Reactions Criticality Noted Date Comments Diltiazem 04/03/2004 Unsure. ? Arm swelled up with an IV dose. Sulfa Antibiotics Hives 04/03/2004 Medications ASPIRIN PO Take 81 mg by mouth daily. Active Multiple Vitamin (MULTIVITAMINS PO) Take 1 tablet by mouth daily. Active AMLODIPINE BESYLATE PO Take 5 mg by mouth 2 times daily. 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 Not on file Not on file Last Filed Vital Signs Vital Sign Reading Time Taken Comments Blood Pressure 151/72 06/10/2018 7:47 AM HOSPITAL SUPERINTENDENT Pulse 82 06/08/2018 3:00 PM HOSPITAL SUPERINTENDENT Temperature 35.7 ??C (96.3 ??F) 06/10/2018 7:47 AM CS T Respiratory Rate 16 06/10/2018 9:00 AM HOSPITAL SUPERINTENDENT Oxygen Saturation 94% 06/10/2018 7:47 AM HOSPITAL SUPERINTENDENT Inhaled Oxygen Concentration - - Weight 92.1 kg (203 lb) 06/07/2018 6:11 AM HOSPITAL SUPERINTENDENT Height 193 cm (6' 4) 05/28/2018 12:00 PM HOSPITAL SUPERINTENDENT pe r H & P Body Mass Index 24.71 05/28/2018 12:00 PM HOSPITAL SUPERINTENDENT Plan of Treatment Not on file Medical Devices Implanted Type Area Swing Saw Operator Device Identifier Shelf Expiration Date Model / Serial / Lot Bone Cement Radiopaque Simplex P Speedset 6192-1-001 Implanted:Qty: 1 on 06/07/2018 by Kermit Dickens MD at [facility] Cement, Bone Left: Knee [employer] 10/04/2019 6192-1-001 / / [id number] Bone Cement Simplex Speed Set Implanted:Qty: 2 on 04/29/2012 by Kermit Dickens MD at [facility] Right: Knee [employer] 11/03/2013 6192-1-001 / / [id number] Imp Comp Patella Yamileth Ii 9x32mm [id number] Implanted:Qty: 1 on 04/29/2012 by Kermit Dickens MD at [facility] Right: Knee [employer]-R 02/03/2022 [id number] / / [id number] Imp Comp Femoral Yamileth Ii Cr Oxin Sz 6 Rt [id number] Implanted:Qty: 1 on 04/29/2012 by Kermit Dickens MD at [facility] Right: Knee [employer] 08/06/2021 [id number] / / [id number] Imp Baseplate Tibial Yamileth Ii Sz 7 Rt Ti [id number] Implanted:Qty: 1 on 04/29/2012 by Kermit Dickens MD at [facility] Right: Knee [employer] 08/06/2021 [id number] / / [id number] Size 7-8 13mm Legion Cr Xlpe High Flexion Articular Insert Implanted:Qty: 1 on 04/29/2012 by Kermit Dickens MD at [facility] Right: Knee [employer] 07/06/2020 [id number] / / [id number] Imp Lyles Arthrex Bio-Swivelock 5.5mm Ar-2323bcc Implanted:Qty: 1 on 07/11/2013 by Kermit Dickens MD at [facility] Left: Shoulder [employer] 08/05/2013 AR-2323BCC / / [id number] Imp Lyles Arthrex Bio-Swivelock 4.75mm Ar-2324bcm Implanted:Qty: 1 on 07/11/2013 by Kermit Dickens MD at [facility] Left: Shoulder [employer] 01/02/2015 AR-2324BCM / / [id number] Wire Joseph 0.054x4 Implanted:Qty: 1 on 07/17/2014 by Sarthak Pichardo MD at [facility] Left: Toe G SOURCE 78.2040 / / [id number] Wire Joseph 0.045x4 Implanted:Qty: 1 on 07/17/2014 by Sarthak Pichardo MD at [facility] Left: Toe G SOURCE 78.2020 / / 4l Femur Cr Implanted:Qty: 1 on 06/07/2018 by Kermit Dickens MD at [facility] Left: Knee [employer] 01/02/2021 90-SRK-3124 00 / / [id number] Size 5 Tibia Tray Implanted:Qty: 1 on 06/07/2018 by Kermit Dickens MD at [facility] Left: Knee [employer] 07/17/2021 90-SRK-2005 00 / / [id number] Patella 33mm Implanted:Qty: 1 on 06/07/2018 by Kermit Dickens MD at [facility] Left: Knee [employer] 03/12/2021 90-SRK-4203 00 / / [id number] Insert Cr 4 16mm Implanted:Qty: 1 on 06/07/2018 by Kermit Dickens MD at [facility] Left: Knee [employer] 06/07/2021 90-SRK-1104 16 / / [id number] Insurance [address] [place] [id number] MEDICARE [facility] Advance Directives For more information, please contact: [phone] Documents on File Type Date Recorded Patient Admission Nurse Expl anation Advance Directives and Living Will [...] Agents on File Name Relationship Healthcare Agent Relationshi p Communication Allison Robertson Spouse Health Care Agent Jacob Robertson Relative First Alternate Health Care Agent Domenico Robertson Son Second Alternate Health Care Agent Care Teams Infusion Rn Relationship Specialty Start Date End Date Idania Iraheta MD [facility] & [address] [address] PCP - General Internal Medicine 06/30/14
--- OUTSIDE RECORDS SUMMARY | 2024-04-29 12:04 | XMS_ITS | Encounter Summary ---
Author Organization [facility] Address [address] [facility] [place] [address] Care Team Providers Care Window Draper Name Role Phone Idania Iraheta MD Primary Care Provider [phone] Encounter Details Date Type Department Care Team (Late st Contact Info) Description 05/17/2018 Orders Only [facility] [address] [place] [phone] Kermit Dickens MD [facility] [address] [place] [address] Pre-operative laboratory examination (Primary Dx) Social History Tobacco Use Types Packs/Day Years Used Date Smoking Tobacco: Never Smokeless Tobacco: Never Alcohol Use Standard Drinks/Week Comments No 0 (1 standard drink = 0.6 oz pur e alcohol) no alcohol for last 8 years Sex and Gender Information Value Date Recorded Sex Assigned at Not on file Legal Sex Male 3:28 AM COTTON GRADER Gender Identity Not on file Sexual Orientation Not on file 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 aureus PCR (05/20/2018 10:48 AM COTTON GRADER) Specimen Description Nares 05/20/2018 5:06 PM COTTON GRADER [facility] Methicillin Resist/Sens S. aureus PCR Negative NEG^Negat jay 05/21/2018 12:22 AM COTTON GRADER [facility] Comment: MRSA Negative: SA Negative ??MRSA and Staphylococcus aureus target DNA not detected, presumed negative for MRSA and SA colonization or the number of bacteria present may be below the limit of detection for the assay. FDA approved assay performed using Vivint GeneXpert(R) real-time PCR. Nasal structure (body structure) 05/20/2018 10:48 AM COTTON GRADER 05/20/2018 5:07 PM COTTON GRADER us Kermit Dickens MD LAB - MICRO GENERAL ORDERAB LES Final Result [facility] [address] [place], [place] [address] [place] [address] [phone] documented in this encounter Visit Diagnoses Diagnosis Pre-operative laboratory examination- Primary Pre-procedural laboratory examination documented in this encounter Care Teams Window Draper Relationship Specialty Start Date End Date Idania Iraheta MD [facility] & [facility] - [address] [address] PCP - General Internal Medicine 06/30/14 documented as of this encounter
--- OUTSIDE RECORDS SUMMARY | 2024-04-29 12:04 | XMS_ITS | Clinical Summary ---
Author Organization [facility] Address [address] [place] [address]. 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 Not on file Not on file Last Filed Vital Signs Vital Sign Reading Time Taken Comments Blood Pressure 151/72 06/10/2018 7:47 AM SONOGRAPHY TECHNOLOGIST Pulse 82 06/08/2018 3:00 PM SONOGRAPHY TECHNOLOGIST Temperature 35.7 ??C (96.3 ??F) 06/10/2018 7:47 AM CS T Respiratory Rate 16 06/10/2018 9:00 AM SONOGRAPHY TECHNOLOGIST Oxygen Saturation 94% 06/10/2018 7:47 AM SONOGRAPHY TECHNOLOGIST Inhaled Oxygen Concentration - - Weight 92.1 kg (203 lb) 06/07/2018 6:11 AM SONOGRAPHY TECHNOLOGIST Height 193 cm (6' 4) 05/28/2018 12:00 PM SONOGRAPHY TECHNOLOGIST pe r H & P Body Mass Index 24.71 05/28/2018 12:00 PM SONOGRAPHY TECHNOLOGIST Plan of Treatment Not on file Medical Devices Implanted Type Area Expanding Machine Operator Device Identifier Shelf Expiration Date Model / Serial / Lot Bone Cement Radiopaque Simplex P Speedset 6192-1-001 Implanted:Qty: 1 on 06/07/2018 by Kermit Dickens MD at [facility] Cement, Bone Left: Knee [employer] 10/04/2019 6192-1-001 / / [id number] Bone Cement Simplex Speed Set Implanted:Qty: 2 on 04/29/2012 by Kermit Dickens MD at [facility] Right: Knee [employer] 11/03/2013 6192-1-001 / / [id number] Imp Comp Patella Yamileth Ii 9x32mm [id number] Implanted:Qty: 1 on 04/29/2012 by Kermit Dickens MD at [facility] Right: Knee [employer]R 02/03/2022 [id number] / / [id number] Imp Comp Femoral Yamileth Ii Cr Oxin Sz 6 Rt [id number] Implanted:Qty: 1 on 04/29/2012 by Kermit Dickens MD at [facility] Right: Knee [employer] 08/06/2021 [id number] / / [id number] Imp Baseplate Tibial Yamileth Ii Sz 7 Rt Ti [id number] Implanted:Qty: 1 on 04/29/2012 by Kermit Dickens MD at [facility] Right: Knee [employer] 08/06/2021 [id number] / / [id number] Size 7-8 13mm Legion Cr Xlpe High Flexion Articular Insert Implanted:Qty: 1 on 04/29/2012 by Kermit Dickens MD at [facility] Right: Knee [employer] 07/06/2020 [id number] / / [id number] Imp Mallory Arthrex Bio-Swivelock 5.5mm Ar-2323bcc Implanted:Qty: 1 on 07/11/2013 by Kermit Dickens MD at [facility] Left: Shoulder [employer] 08/05/2013 AR-2323BCC / / [id number] Imp Mallory Arthrex Bio-Swivelock 4.75mm Ar-2324bcm Implanted:Qty: 1 on 07/11/2013 by Kermit Dickens MD at [facility] Left: Shoulder [employer] 01/02/2015 AR-2324BCM / / [id number] Wire Joseph 0.054x4 Implanted:Qty: 1 on 07/17/2014 by Sarthak Pichardo MD at [facility] Left: Toe G SOURCE 78.2040 / / [id number] Wire Joseph 0.045x4 Implanted:Qty: 1 on 07/17/2014 by Sarthak Pichardo MD at [facility] Left: Toe G SOURCE 78.2020 / / 4l Femur Cr Implanted:Qty: 1 on 06/07/2018 by Kermit Dickens MD at [facility] Left: Knee [employer] 01/02/2021 90-SRK-3124 00 / / [id number] Size 5 Tibia Tray Implanted:Qty: 1 on 06/07/2018 by Kermit Dickens MD at [facility] Left: Knee [employer] 07/17/2021 90-SRK-2005 00 / / [id number] Patella 33mm Implanted:Qty: 1 on 06/07/2018 by Kermit Dickens MD at [facility] Left: Knee [employer] 03/12/2021 90-SRK-4203 00 / / [id number] Insert Cr 4 16mm Implanted:Qty: 1 on 06/07/2018 by Kermit Dickens MD at [facility] Left: Knee [employer] 06/07/2021 90-SRK-1104 16 / / [id number] Insurance MEDICARE [facility] Advance Directives For more information, please contact: [phone] Documents on File Type Date Recorded Patient Information Systems Architect Expl anation Advance Directives and Living Will [...] Agents on File Name Relationship Healthcare Agent [facility] p Communication Allisonruslan Robertson Spouse Health Care Agent Jacob Robertson Relative First Alternate Health Care Agent Domenico Robertson Son Second Alternate Health Care Agent Care Teams Arm Rest Builder Relationship Specialty Start Date End Date Idania Iraheta MD [facility] & [address] [address] PCP - General Internal Medicine 06/30/14
--- OUTSIDE RECORDS SUMMARY | 2024-04-29 12:04 | XMS_ITS | Encounter Summary ---
Author Organization [facility] Address [address] [place] [address] Phone Care Team Providers Care Site Coordinator Name Role Phone Idania Iraheta MD Primary Care Provider [phone] Rigoebrto Rivera MD Unavailable Encounter Details Date Type Department Care Team (Late st Contact Info) Description 03/10/2024 11:30 AM CDT [facility] Card[facility] Clinic [address] [phone] Rigoberto Rivera MD [address] [place] [phone] Status post non-ST elevation myocardial infarction (NSTEMI) (Primary Dx); Coronary artery disease involving alutiiq coronary artery of alutiiq heart, unspecified whether angina present; PAF (paroxysmal atrial fibrillation) ([facility]/HHS) Discharge Disposition: Discharged to home or self [...] PM CDT documented as of this encounter Progress Notes * Rigoberto Rivera MD - 03/10/2024 11:30 AM CDT Images from the original note were not included. [facility] Luciano Rebel Robertson : 1940 Sex: male TELEMEDICINE ENCOUNTER DATE OF SERVICE: 03/10/2024 CC: Idania Iraheta MD Medical Decision Making: ASSESSMENT: Status post Non-STEMI and stenting of LCX. Paroxysmal atrial fibrillation: Apparently occurred during the PCI and is ongoing. Subconjunctival hemorrhage. Apparently evaluated by ophthalmology and it was not advised that his medication regimen be altered because of this. PLAN: Explained to him that I agree with how things have been managed and the planned medication changes. Asked him to check in with me in a week or two as to how he is faring. Explained that he can do a remote transmission with the pacemaker if he thinks the AF is persisting. HISTORY OF PRESENT ILLNESS: Patient called in to clinic here today and asked for a return call from me. Patient hospitalized with Non-STEMI on 03/08 (Records were reviewed). Presented with discomfort in both arms and in his chest - not severe. First episode on Thursday, next one was Thursday night. Called into our nurse line on Thursday and was advised to go the ED. He then went to [facility]. ECG showed T wave changes that were new compared with previous (ED MD called me and I reviewed the tracing there and compared it to the most recent one done here). Was heparinized and transferred to [facility] where angiogram showed mid LCX severe stenosis that was stented. No significant disease reported elsewhere. Atrial fibrillation apparently occurred during the procedure and has persisted since. It is not making him feel as bad as he did in the past, which he thinks is due to the pacemaker. He also apparently developed a left eye subconjunctival hemorrhage - insole reinforcer saw today and reassured him that it should resolve spontaneously with time. Patient presently comfortable - still at [facility] but expects to be going home this evening. Being discharged on Eliquis and Ticagrelor. . Patient Active Problem List Diagnosis Sinus node dysfunction (CMS/HHS) 1999 - Pacemaker implanted Dual Chamber Pacemaker 1999 - Initial implant, sinus node dysfunction, PAF 2006 - generator replaced 11/19/2012 - generator replaced. The patient has a Medtronic ADDRL1 dual chamber pacemaker implanted11/19/2012 as a replacement. Leads in use from original 09/30/[address] Rivera. This system is NOT MRI conditional with leads from 1999. PAF (paroxysmal atrial fibrillation) (CMS/HHS) 2004 - Ablation 2005 - Ablation 10/14-: PAF Essential hypertension, benign Past Medical History: Diagnosis Date HTN (hypertension) Pacemaker 1999 Paroxysmal A-fib ([facility]) Raynaud's phenomenon S/P ablation of atrial fibrillation 2003, 2004 Sinus node dysfunction ([facility]) Past Surgical History: Procedure Laterality Date PACEMAKER INSERTION/REPOSITIONING 1999 PACEMAKER INSERTION/REPOSITIONING 2006 PACEMAKER INSERTION/REPOSITIONING 2012 RADIOFREQUENCY ABLATION 2003 RADIOFREQUENCY ABLATION 2004 TOTAL KNEE ARTHROPLASTY Left 06/07/2018 TOTAL KNEE ARTHROPLASTY Right Current Outpatient Medications Medication Sig Dispense Refill [...] Allergen Reactions Diltiazem Edema Sulfa Antibiotics Rash Losartan Cough PSYCHOSOCIAL HISTORY Occupational History Not on file Tobacco Use Smoking status: Never Smokeless tobacco: Never Substance and Sexual Activity Alcohol use: No Drug use: No Sexual activity: Not on file Social History Narrative Not on file ADDITIONAL COMMENTS: Telemedicine: Telephone Visit: This telemedicine visit is conducted by audio-only technology between the patient and provider. Patient was informed that: - Certain health care needs can be provided without an in-person exam - Telemedicine may limit provider's ability to fully diagnose a condition/disease. - Services are billable. - Patient may ask questions at any time during telephone visit. - Patient may opt out of telephone visit at any time and will not prevent him from receiving futurecare at [facility]. - Patient acknowledges risks of telemedicine and agrees to follow provider's recommendations. Patient consents to this service: Yes. Patient's Physical Location: at [facility] Provider's Physical Location: Onsite at [facility] Participants in this Telemedicine Visit other than the patient/provided included: N/A This visit started at: 5:20 PM and concluded at: 5:30 PM. Total time spent on this audio-only encounter, on the date of service, including pre-visit review of separately obtained history, patient counseling/education, interpretation of diagnostic results, care coordination and documentation was 25 minutes. This note has been produced utilizing voice recognition technology, and as a result may contain some grammatical errors and unintended word substitutions. I appreciate the opportunity to participate in this patient's cardiovascular care. If there are questions about my evaluation or recommendations, please do not hesitate to contact me. Rigoberto Rivera MD documented in this encounter Plan of Treatment Upcoming Encounters Date Type Department Care Team (Late st Contact Info) Description 05/03/2024 2:00 PM CDT Office Visit [facility] Cardiology [facility] [address] [place] [address] Rigoberto Rivera MD [address] [facility] [address] [place] [id number] Scheduled Discharge Disposition: Discharged to home or self care 07/19/2024 8:00 AM GROOMING ASSISTANT Nurse Only [facility] Cardiology Clinic [address] [address] Scheduled Discharge Disposition: Discharged to home or self care documented as of this encounter Visit Diagnoses Diagnosis Status post non-ST elevation myocardial infarction (NSTEMI)- Primary Coronary artery disease involving alutiiq coronary artery of alutiiq heart, unspecified whether angina present PAF (paroxysmal atrial fibrillation) (CMS/HHS) Atrial fibrillation documented in this encounter Care Teams Site Coordinator Relationship Specialty Start Date End Date Idania Iraheta MD [address] [place] [address] PCP - General Outside Provider 08/15/15 Rigoberto Rivera MD [address] [place] [address] PCP - Cardiology Cardiology 04/01/17 documented as of this encounter
--- OUTSIDE RECORDS SUMMARY | 2024-04-29 12:04 | XMS_ITS | Clinical Summary ---
Author Organization [employer] Address [address] [place] [address] Phone Care Team Providers Care Cytogenetic Technologist Name Role Phone Idania Iraheta MD Primary Care Provider [phone] Rigoberto Rivera MD Unavailable Source Comments VR1 is fully rolled out on [email or web address]. Last update 12/08/08.[employer] [facility] Allergies Active Allergy Reactions Criticality Noted Date [...] Take 1 capsule by mouth daily. Active apixaban (ELIQUIS) 5 mg oral tablet Take 1 tablet (5 mg) by mouth twice daily. 03/11/2024 Active clopidogrel (PLAVIX) 75 mg oral TABS Take 1 tablet (75 mg) by mouth one time. 03/11/2024 Active metoprolol succinate (TOPROL XL) 25 mg oral XL tablet Take 1 tablet (25 mg) by mouth daily. 03/10/2024 Active atorvastatin (LIPITOR) 40 mg oral TABS Take 1 tablet (40 mg) by mouth at bedtime. 03/10/2024 Active nitroGLYCERIN (NITROTAB) 0.4 mg sublingual sublingual tablet Dissolve 1 tablet (0.4 mg) under tongue every five minutes as needed. 03/10/2024 Active Active Problems Problem Noted Date Diagnosed Date Status post non-ST elevation myocardial infarcti on (NSTEMI) 03/15/2024 Sinus node dysfunction ([facility]/HHS) 08/15/2015 Overview: 1999 - Pacemaker implanted Dual [...] leads from 1999. PAF (paroxysmal atrial fibrillation) ([facility]) 0 08/15/2015 Overview: 2004 - Ablation 2004 - Ablation 10/14-: PAF Primary hypertension 08/15/2015 Encounters Date Type Department Care Team Description 04/19/2024 8:00 AM CDT [facility] [address] [place] [address] Sánchez iSmeon MBBS Cardiac pacemaker in situ Discharge Disposition: Discharged to home or self care 04/08/2024 Orders Only MED CARDIOLOGY SERV AL [phone] Rigoberto iRvera MD 03/16/2024 12:00 PM CDT Telemedicine [facility] Card[facility] [address] [place] [address] Rigoberto Rivera MD Status post non-ST elevation myocardial infarction (NSTEMI) (Primary Dx); Coronary artery disease involving lower brule coronary artery of lower brule heart, unspecified whether angina present; PAF (paroxysmal atrial fibrillation) ([facility]); Cardiac pacemaker in situ; Primary hypertension Discharge Disposition: Discharged to home or self care 03/16/2024 Telephone [facility] [address] [place] [address] Rigoberto Rivera MD 03/10/2024 11:30 AM CDT Telemedicine [facility] [address] [place] [address] Rigoberto Rivera MD Status post non-ST elevation myocardial infarction (NSTEMI) (Primary Dx); Coronary artery disease involving lower brule coronary artery of lower brule heart, unspecified whether angina present; PAF (paroxysmal atrial fibrillation) ([facility]) Discharge Disposition: Discharged to home or self care 03/08/2024 Telephone [facility] [address] [place] [address] Yasmin Ramachandran RN 03/08/2024 Nurse Triage [facility] [address] [place] [address] [phone] Martha Smith RN Chest Pain from Last 3 Months Family History Medical [...] [facility] Cardiology [facility] [address] [place], [place] [address] Rigoberto Rivera MD 701 [facility] [address] [place], [place] [phone] Scheduled Discharge Disposition: Discharged to home or self care 07/19/2024 8:00 AM SUPERVISOR MAINSPRING FABRICATION [facility] [address] [place] [address] Scheduled Discharge Disposition: Discharged to home or [...] Td or Tdap) 11/14/2020 05/17/2020, 2009 Imm: COVID-19 ( season) 2024 11/09/2023, 05/19/2023, 02/03/2023, Additional history exists Imm: Flu (#1) 03/06/2024 04/07/2023, 03/06, 05/07/2021, Additional history exists Imm: Zoster Completed 08/13/2021, 04/02/2021 Imm: HPV Aged Out No longer eligi [...] Diagnosis Comments EVALUATE PACEMAKER/ ICM REMOTE Routine 04/19/2024 12:54 PM CDT Cardiac pacemaker in situ from Last 3 Months Results * EVALUATE PACEMAKER/ ICM REMOTE (04/19/2024 12:54 PM CDT) Sánchez GARCIABS CARDIAC DEVICE ORDER [facility] from Last 3 Months Care Teams Cytogenetic Technologist Relationship Specialty Start Date End Date Idania Iraheta MD [address] [place] [address] PCP - General Outside Provider 08/15/15 Rigoberto Rivera MD [address] [place] [address] PCP - Cardiology Cardiology 04/01/17
--- OUTSIDE RECORDS SUMMARY | 2024-04-29 12:04 | XMS_ITS | Encounter Summary ---
Author Organization [facility] Address [address] [place] [address] Phone Care Team Providers Care Governor Assembler Name Role Phone Idania Iraheta MD Primary Care Provider Rigoberto Rivera MD Unavailable Encounter Details Date Type Department Care Team (Late st Contact Info) Description 03/08/2024 Telephone [facility] Clinic [address] [phone] Yasmin Ramachandran RN [address] [place] [address] Social History Tobacco Use Types Packs/Day Years [...] Description 05/03/2024 2:00 PM CDT Office Visit [facility] [place] [facility] [address] [place] [address] [phone] Rigoberto Rivera MD 701 [facility] [address] [place] [address] Scheduled Discharge Disposition: Discharged to home or self care 07/19/2024 8:00 AM PROJECT PRODUCT MANAGER [facility] [address] [address] Scheduled Discharge Disposition: Discharged to home or self care documented as of this encounter Visit Diagnoses Not on filedocumented in this encounter Care Teams Governor Assembler Relationship Specialty Start Date End Date Idania Iraheta MD [address] [place] [address] PCP - General Outside Provider 08/15/15 Rigoberto Rivera MD [address] [place] [address] PCP - Cardiology Cardiology 04/01/17 documented as of this encounter
--- OUTSIDE RECORDS SUMMARY | 2024-04-29 12:04 | XMS_ITS | Encounter Summary ---
Author Organization [facility] Address [address] [place] [address] Phone Care Team Providers Care Platform Beater Name Role Phone Idania Iraheta MD Primary Care Provider Rigoberto Rivera MD Unavailable Encounter Details Date Type Department Care Team (Late st Contact Info) Description 04/08/2024 Orders Only MED CARDIOLOGY SERV PR [phone] Rigoberto Rivera MD [address] [place] [address] [phone] Social History Tobacco Use Types Packs/Day Years [...] Description 05/03/2024 2:00 PM CDT [place] [facility] [place] [facility] [address] [place], [place] [address] Rigoberto Rivera MD [address] [phone] Scheduled Discharge Disposition: Discharged to home or self care 07/19/2024 8:00 AM TESTER ROCKET ENGINE [facility] [address] [address] Scheduled Discharge Disposition: Discharged to home or self care documented as of this encounter Visit Diagnoses Not on filedocumented in this encounter Care Teams Platform Beater Relationship Specialty Start Date End Date Idania Iraheta MD [address] [place] [address] PCP - General Outside Provider 08/15/15 Rigoberto Rivera MD [address] [place] [address] PCP - Cardiology Cardiology 04/01/17 documented as of this encounter
--- OUTSIDE RECORDS SUMMARY | 2024-04-29 12:04 | XMS_ITS | Encounter Summary ---
Author Organization [facility] Address [address] [place] [address] Phone Care Team Providers Care Commercial Pest Control Technician Name Role Phone Idania Iraheta MD Primary Care Provider Rigoberto Rivera MD Unavailable Encounter Details Date Type Department Care Team (Late st Contact Info) Description 03/16/2024 12:00 PM CDT Telemedicine [facility] [place] [facility] [address] [place] [address] Rigoberto Rivera MD [address] [place] [address] Status post non-ST elevation myocardial infarction (NSTEMI) (Primary Dx); Coronary artery disease involving capitan grande band coronary artery of capitan grande band heart, unspecified whether angina present; PAF (paroxysmal atrial fibrillation) ([facility]); Cardiac pacemaker in situ; Primary hypertension Discharge [...] Progress Notes * Rigoberto Rivera MD - 03/16/2024 12:00 PM CDT Images from the original note were not included. [facility] Cardiology [facility] Lucinao Robertson : 1940 Sex: male TELEMEDICINE ENCOUNTER DATE OF SERVICE: 03/16/2024 CC: Idania Iraheta MD Medical Decision Making: ASSESSMENT: Status post recent Non-STEMI and stenting of LCX: No chest pain since the procedure. Paroxysmal atrial fibrillation: Apparently occurred during the PCI and persisted through the time of discharge. He feels his rhythm has now normalized. Pacemaker: Explained how this will be useful in tracking his atrial fibrillation. Hypertension: Reasonable control with current regimen. Subconjunctival hemorrhage. Apparently evaluated by ophthalmology and it was not advised that his medication regimen be altered because of this. PLAN: Continue current pharmacologic regimen Advised him to gradually develop a walking routine, and to report back should he notice diminishingexercise tolerance, chest pain or dizziness. Consider enrolling in cardiac rehab program - he states [place] is closest. Pacemaker transmission scheduled for 04/20/2024 Will tentatively plan to have the patient follow-up with me in late April, unless clinical statuswarrants earlier assessment. HISTORY OF PRESENT ILLNESS: Luciano Robertson is an 84 y.o. male who is having a telemedicine encounter today for cardiovascular follow-up, with specific concerns regarding recent hospitalization with Non-STEMI leading to coronary stenting, and recurrent atrial fibrillation. 03/08 - 11/2023: He was hospitalized with Non-STEMI on 03/08 (Records were reviewed). Presented with discomfort in both arms and in his chest - not severe. First episode the preceding Thursday, next one wasThursday night. Called into our nurse line on Thursday and was advised to go the ED. He then went to [facility]. ECG showed T wave changes that were new compared with previous (ED MD called me and I reviewed the tracing there and compared it to the most recent one done here). Was heparinized and transferred to [facility] where angiogram showed mid LCX severe stenosis that was stented. No significant disease reported elsewhere. Atrial fibrillation apparently occurred during the procedure and persisted through the remainder ofthe hospitalization. He also apparently developed a left eye subconjunctival hemorrhage - facilitator saw him in thehospital and reassured him that it should resolve spontaneously with time. He was discharged on Apixaban in place of rivaroxaban, clopidogrel in place of aspirin, and was also started on atorvastatin 40 mg daily, and metoprolol XL 25 mg daily. He was continued on amlodipineas prior to admission. He thinks his rhythm normalized yesterday, and has continues such since that time. He is comfortable presently. The patient denies any recent chest pain, dyspnea, palpitations, dizziness, edema, or weight change. He has been checking his blood pressure multiple times per day, has been ranging from 118-130 systolic, with diastolics in the 60s and 70's. Patient Active Problem List Diagnosis Status post non-ST elevation myocardial infarction (NSTEMI) Sinus node dysfunction ([facility]) 1999 - Pacemaker implanted Dual Chamber Pacemaker 1999 - Initial implant, sinus node dysfunction, PAF 2006 - generator replaced 11/19/2012 - generator replaced. The patient has a Medtronic [id number] dual chamber pacemaker implanted11/19/2012 as a replacement. Leads in use from original 09/30/[address] Rivera. This system is NOT MRI conditional with leads from 1999. PAF (paroxysmal atrial fibrillation) (CMS/HHS) 2003 - Ablation 2004 - Ablation 10/14-: PAF Essential hypertension, benign Past Medical History: Diagnosis Date HTN (hypertension) Pacemaker 1999 Paroxysmal A-fib (CMS/HHS) Raynaud's phenomenon S/P ablation of atrial fibrillation 2003, 2004 Sinus node dysfunction ([facility]) Past Surgical History: Procedure Laterality Date PACEMAKER INSERTION/REPOSITIONING 1999 PACEMAKER INSERTION/REPOSITIONING 2006 PACEMAKER INSERTION/REPOSITIONING 2012 RADIOFREQUENCY ABLATION 2003 RADIOFREQUENCY ABLATION 2004 TOTAL KNEE ARTHROPLASTY Left 06/07/2018 TOTAL KNEE ARTHROPLASTY Right Current Outpatient Medications Medication Sig Dispense Refill apixaban (ELIQUIS) 5 mg oral tablet Take 1 tablet (5 mg) by mouth twice daily. clopidogrel (PLAVIX) 75 mg oral TABS Take 1 tablet (75 mg) by mouth one time. metoprolol succinate (TOPROL XL) 25 mg oral XL tablet Take 1 tablet (25 mg) by mouth daily. atorvastatin (LIPITOR) 40 mg oral TABS Take 1 tablet (40 mg) by mouth at bedtime. nitroGLYCERIN (NITROTAB) 0.4 mg sublingual sublingual tablet Dissolve 1 tablet (0.4 mg) under tongue every five minutes as needed. Multiple Vitamin (DAILY MULTIVITAMIN) oral tablet Take [...] file Social History Narrative Not on file REVIEW OF DATA: Echocardiogram: 03/09/2024 From [facility] 1. Normal left ventricular size, mildly increased [...] with a maximal diameter of 4.2 cm. Coronary angiogram/Percutaneous Coronary Intervention 03/09/2024 From [facility] The LMCA has mild luminal irregularities. The LAD has mild luminal irregularities. 90% stenosis in the Mid Circumflex 30% diffuse stenosis in the Proximal RCA INTERVENTION Successful 2.5mm x 12mm Balloon, 2.75mm x 18mm Drug Eluting Stent, and 3.5mm x 8mm Balloon to Mid Circumflex (NC POT), post stenosis 0% Lab results: From [facility] 03/09/2024 SODIUM 136 - 145 mmol/L 143 POTASSIUM 3.5 - 5.1 mmol/L 3.7 CHLORIDE 98 - 107 mmol/L 109 High CO2,TOTAL 22 - 29 mmol/L 25 ANION GAP 5 - 18 9 GLUCOSE 70 - 99 mg/dL 99 CALCIUM 8.8 - 10.2 mg/dL 8.8 BUN 8 - 23 mg/dL 19 CREATININE 0.70 - 1.20 mg/dL 1.03 BUN/CREAT RATIO 10 - 20 18 eGFR >90 mL/min/1.73m2 71 Low CHOLESTEROL,TOTAL 100 - 199 mg/dL 175 TRIGLYCERIDES <150 mg/dL 61 HDL CHOLESTEROL >40 mg/dL 51 NON-HDL CHOLESTEROL <145 mg/dl 124 CHOL/HDL RATIO <4.50 3.43 LDL CHOLESTEROL <=130 mg/dL 112 Lab Results Component Value Date NA 142 10/20/2023 K 4.6 10/20/2023 CR 1.69 (H) 10/20/2023 GLU 69 (L) 10/20/2023 UN 38 (H) 10/20/2023 CA 9.5 10/20/2023 HGB 13.8 10/18/2018 PLT 271 10/18/2018 No results found for: NTPROBNP, DIG Lab Results Component Value Date LPCHOL 180 10/20/2023 CALCLDL 104 (H) 10/20/2023 HDL 41 10/20/2023 TRIGLYCERIDE 177 (H) 10/20/2023 Lab Results Component Value Date INR 1.4 (H) 10/18/2018 ADDITIONAL COMMENTS: Telemedicine: Telephone Visit: This telemedicine [...] not prevent him from receiving futurecare at [facility]. - Patient acknowledges risks of telemedicine and agrees to follow provider's recommendations. Patient consents to this service: Yes. Patient's Physical Location: Home Provider's Physical Location: Onsite at [facility] Participants in this Telemedicine Visit other than the patient/provided included: N/A This visit started at: 12:43 AM and concluded at: 12:58 PM. Total time spent on this audio-only encounter, on the date of service, including pre-visit review of separately obtained history, patient counseling/education, interpretation of diagnostic results, care coordination and documentation was 22 minutes. This note has been produced utilizing [...] 05/03/2024 2:00 PM CDT Office Visit [facility] [place] [address] Rigoberto Rivera MD [address] [facility] [address] [place] [address] Scheduled Discharge Disposition: Discharged to home or self care 07/19/2024 8:00 AM PETROLEUM REFINING FIRER Nurse [facility] Cardiology Clinic [address] [address] Scheduled Discharge Disposition: Discharged to home or self care documented as of this encounter Visit Diagnoses Diagnosis Status post non-ST elevation myocardial infarction (NSTEMI)- Primary Coronary artery disease involving capitan grande band coronary artery of capitan grande band heart, unspecified whether angina present PAF (paroxysmal atrial fibrillation) ([facility]) Atrial fibrillation Cardiac pacemaker in situ Primary hypertension Unspecified essential hypertension documented in this encounter Care Teams Commercial Pest Control Technician Relationship Specialty Start Date End Date Idania Iraehta MD [address] [place] [address] PCP - General Outside Provider 08/15/15 Rigoberto Rivera MD [address] [place] [address] PCP - Cardiology Cardiology 04/01/17 documented as of this encounter
--- OUTSIDE RECORDS SUMMARY | 2024-04-29 12:04 | XMS_ITS | Encounter Summary ---
Author Organization [facility] Address [address] [place] [phone] Phone Care Team Providers Care Dextrine Mixer Name Role Phone Idania Iraheta MD Primary Care Provider Rgioberto Rivera MD Unavailable Reason for Visit * Reason Onset Date Comments Chest Pain 03/08/2024 Encounter Details Date Type Department Care Team (Late st Contact Info) Description 03/08/2024 Nurse Triage [facility] Clinic [address] [place] [address] Martha Smith, RN [address] [place] [address] Chest Pain Social History Tobacco Use Types [...] last menstrual period? na Protocols used: Chest [id number] documented in this encounter Plan of Treatment Upcoming Encounters Date Type Department Care Team (Late st Contact Info) Description 05/03/2024 2:00 PM CDT Office [place] [facility] [place] [facility] [address] [place] [address] Rigoberto Rivera MD 701 [facility] [address] [place] [address] Scheduled Discharge Disposition: Discharged to home or self care 07/19/2024 8:00 AM PROVIDER NETWORK MGR [facility] [address] [address] Scheduled Discharge Disposition: Discharged to home or self care documented as of this encounter Visit Diagnoses Not on filedocumented in this encounter Care Teams Dextrine Mixer Relationship Specialty Start Date End Date Idania Iraheta MD [address] [place] [address] PCP - General Outside Provider 08/15/15 Rigoberto Rivera MD [address] [place] [address] PCP - Cardiology Cardiology 04/01/17 documented as of this encounter
--- OUTSIDE RECORDS SUMMARY | 2024-04-29 12:04 | XMS_ITS | Encounter Summary ---
Author Organization [facility] Address [address] [place] [address] Phone Care Team Providers Care Basket Patcher Name Role Phone Idania Iraheta MD Primary Care Provider Ronit Rivera MD Unavailable Encounter Details Date Type Department Care Team (Late st Contact Info) Description 03/16/2024 Telephone [facility]iology Clinic [address] [phone] Ronit Rivera MD [address] [phone] Social History Tobacco Use Types Packs/Day Years [...] encounter Miscellaneous Notes * Telephone Encounter - Valentine Bradford RN - 03/16/2024 9:36 AM CDT Call returned to pt. He states he already received a call that Dr Rivera will be calling him today around 12 noon. * Telephone Encounter - Valentine Bradford RN - 03/16/2024 9:35 AM CDT ----- Message from Bessie Kapoor sent at 03/15/2024 12:52 PM CDT ----- ----- Message ----- From: Nickolas Jones Sent: 03/15/2024 12:45 PM CDT To: Cardiology Nurse [facility]; # Patient: Luciano Robertson : 1940 Called to schedule an appointment with provider: PCP Reason for Visit: this is second call, pt is back from the ER had heart attack wants to talk with RONIT RIVERA MD Video Capable ([employer] Account, High Speed Internet, or Smart Phone/Device or CAM/KOLTON): No Patient Provider Preferences: Any available provider. Date/Time Preferred: Any day and time. Phone number for return call: [phone] Why are you unable to schedule? Telephone visit documented in this encounter Plan of Treatment Upcoming Encounters Date Type Department Care Team (Late st Contact Info) Description 05/03/2024 2:00 PM CDT Office [place] [facility] [facility] [address] [place] [phone] Ronit Rivera MD [address] [place] [phone] Scheduled Discharge Disposition: Discharged to home or self care 07/19/2024 8:00 AM DETECTIVE HOMICIDE SQUAD Nurse [facility] [address] [address] Scheduled Discharge Disposition: Discharged to home or self care documented as of this encounter Visit Diagnoses Not on filedocumented in this encounter Care Teams Basket Patcher Relationship Specialty Start Date End Date Idania Iraheta MD [address] [place] [address] PCP - General Outside Provider 08/15/15 Ronit Rivera MD [address] [place] [address] PCP - Cardiology Cardiology 04/01/17 documented as of this encounter
--- OUTSIDE RECORDS SUMMARY | 2024-04-29 12:04 | XMS_ITS | Encounter Summary ---
Author Organization [facility] Address [address] [place] [phone] Phone Care Team Providers Care Jukebox Route Driver Name Role Phone Idania Iraheta MD Primary Care Provider [phone] Rigoberto Rivera MD Unavailable Reason for Visit * Reason Comments Cardiac Device Evaluation Remote pacemak er check Encounter Details Date Type Department Care Team (Late st Contact Info) Description 04/19/2024 8:00 AM CDT [facility] [address] [phone] Sánchez Simeon MBBS [address] [phone] Cardiac pacemaker in situ Discharge Disposition: Discharged [...] Notes * Result Encounter Note - Susana Bhandari RN - 04/19/2024 8:00 AM CDT Today's remote dual chamber pacemaker transmission is reviewed. Since the last remote check on 01/19/24 there have been 1 VHR episode, 1 AHR episode and 43 mode switch episodes detected within programmed parameters. All but 7 mode switch episodes have been previously reviewed as patient has sent multiple unscheduled transmissions. See [employer] for my chart messages to patient regarding unscheduled transmissions and episodes. All 7 mode switch episodes under 1 minute with no stored EGMs. AT/AF burdenreported at <0.1%. Presenting rhythm is sinus with intermittent atrial pacing. RA pacing 39.3% and RV pacing 1.9%, currently programmed in MVP mode. Stable lead measurements and trending. Normal pacemaker function. Remote data conveyed to the provider. See attached documentation under the Cardiology/Echo section of Results Review. documented in this encounter Plan of Treatment Upcoming Encounters Date Type Department Care Team (Late st Contact Info) Description 05/03/2024 2:00 PM CDT Office Visit [facility] Cardiology [facility] [address] [place] [address] Rigoberto Rivera MD [address] [place] [address] [place] [phone] Scheduled Discharge Disposition: Discharged to home or self care 07/19/2024 8:00 AM SHERIFF [facility] [address] [phone] Scheduled Discharge Disposition: Discharged to home or self care documented as of this encounter Procedures Procedure Name Priority Date/Time Associated Diagnosis Comments EVALUATE PACEMAKER/ ICM REMOTE Routine 04/19/2024 12:54 PM CDT Cardiac pacemaker in situ documented in this encounter Results * EVALUATE PACEMAKER/ ICM REMOTE (04/19/2024 12:54 PM CDT) Sánchez WEST CARDIAC DEVICE ORDER GEETA [facility] PACEART documented in this encounter Visit Diagnoses Diagnosis Cardiac pacemaker in situ documented in this encounter Care Teams Jukebox Route Driver Relationship Specialty Start Date End Date Idania Iraheta MD [address] [place] [address] PCP - General Outside Provider 08/15/15 Rigoberto Rivera MD [address] [place] [address] PCP - Cardiology Cardiology 04/01/17 documented as of this encounter
--- OUTSIDE RECORDS SUMMARY | 2024-04-29 12:04 | XMS_ITS | Referral Summary ---
Author Organization [facility] Address [address] [place] [address] Phone Care Team Providers Care Combination Welder Apprentice Name Role Phone Idania Iraheta MD Primary Care Provider Rigoberto Rivera MD Unavailable Source Comments [employer] is fully rolled out on Care IT. Last update 12/08/08[employer] Encounters Date Type Department Care Team Description 04/19/2024 8:00 AM CDT [facility] Clinic [address] [place] [phone] Sánchez Simeon MBBS Cardiac pacemaker in situ Discharge Disposition: Discharged to home or self care 04/08/2024 Orders Only [facility] [place] [phone] Rigoberto Rivera MD 03/16/2024 Telephone [facility] [address] [place] [phone] Rigoberto Rivera MD 03/16/2024 12:00 PM CDT Telemedicine [facility] Cardiology [facility] [address] [place] [phone] Rigoberto Rivera MD Status post non-ST elevation myocardial infarction (NSTEMI) (Primary Dx); Coronary artery disease involving [place] coronary artery of [place] heart, unspecified whether angina present; PAF (paroxysmal atrial fibrillation) (CMS/HHS); Cardiac pacemaker in situ; Primary hypertension Discharge Disposition: Discharged to home or self care 03/10/2024 11:30 AM CDT [facility] [address] [place] [phone] Rigoberto Rivera MD Status post non-ST elevation myocardial infarction (NSTEMI) (Primary Dx); Coronary artery disease involving [place] coronary artery of [place] heart, unspecified whether angina present; PAF (paroxysmal atrial fibrillation) ([facility]) Discharge Disposition: Discharged to home or self care 03/08/2024 Telephone [facility] [address] [place] [phone] Yasmin Ramachandran RN 03/08/2024 Nurse Triage [facility] [address] [place] [phone] Martha Smith RN Chest Pain from Last 3 Months Allergies Active Allergy [...] infarcti on (NSTEMI) 03/15/2024 Sinus node dysfunction ([facility]/HHS) 08/15/2015 Overview: 2000 - Pacemaker implanted Dual Chamber Pacemaker 08/15/2015 Overview: 1999 - Initial implant, sinus node dysfunction, PAF 2006 - generator replaced 11/19/2012 - generator replaced. The patient has a Medtronic [id number] dual chamber pacemaker implanted 11/19/2012 as a replacement. Leads in use from original 09/30/[address] [employer]Rvera. This system is NOT MRI conditional with leads from 1999. PAF (paroxysmal atrial fibrillation) ([facility]/HHS) 0 08/15/2015 Overview: 2004 - Ablation 2005 - Ablation 10/14-: PAF Primary hypertension 08/15/2015 Social History Tobacco Use Types Packs/Day [...] 2:00 PM CDT Office Visit [facility] Cardiology [address] [address] Rigoberto Rivera MD [address] [place] [address] [place] [phone] Scheduled Discharge Disposition: Discharged to home or self care 07/19/2024 8:00 AM SURVEY RESEARCH PROFESSOR Nurse [facility] Clinic [address] [place] [address] Scheduled Discharge Disposition: Discharged to home or self care Procedures Procedure Name Priority Date/Time Associated Diagnosis Comments EVALUATE PACEMAKER/ ICM REMOTE Routine 04/19/2024 12:54 PM CDT Cardiac pacemaker in situ from Last 3 Months Results * EVALUATE PACEMAKER/ ICM REMOTE (04/19/2024 12:54 PM CDT) Sánchez GARCIABS CARDIAC DEVICE ORDER GEETA [facility] PACEART from Last 3 Months Care Teams Combination Welder Apprentice Relationship Specialty Start Date End Date Idania Iraheta MD [address] [place] [address] PCP - General Outside Provider 08/15/15 Rigoberto Rivera MD [address] [place] [address] PCP - Cardiology Cardiology 04/01/17
--- OUTSIDE RECORDS SUMMARY | 2024-04-29 12:05 | XMS_ITS | Encounter Summary ---
Author Organization [place] Address [facility] [place] [address] Care Team Providers Care Oil And Gas Recruiter Name Role Phone Nico Arnold MD Primary Care Provider [phone] Raoul Rowe MD Primary Care Provider Idania Iraheta MD Primary Care Provider [phone] Encounter Details Date Type Department Care Team (Late st Contact Info) Description 08/17/[address] [place] [address] Nico Arnold MD [facility] [address] [place] [address] [id number] PACEMAKER PROCEDURE NOTE (Primary Dx) Social History Tobacco Use Types Packs/Day Years Used Date Smoking Tobacco: Never Smokeless Tobacco: Never Alcohol Use Standard Drinks/Week Comments No 0 (1 standard drink = 0.6 oz pur e alcohol) no alcohol for last 8 years Sex and Gender Information Value Date Recorded Sex Assigned at Not on file Legal Sex Male 3:28 AM DIRECTOR OF AGRONOMY Gender Identity Not on file Sexual Orientation Not on file 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 Not on file Not on file documented as of this encounter Plan of Treatment Not on file documented as of this encounter Visit Diagnoses Diagnosis [facility] PACEMAKER PROCEDURE NOTE- Primary documented in this encounter Care Teams Oil And Gas Recruiter Relationship Specialty Start Date End Date Nico Arnold MD [facility] [id number] [place] [address] PCP - General 08/20/01 04/22/12 Raoul Rowe MD [facility] [address] [place] [address] PCP - General 04/23/12 06/29/14 Idania Iraheta MD [facility] [address] [place] [address] PCP - General Internal Medicine 06/30/14 documented as of this encounter
--- OUTSIDE RECORDS SUMMARY | 2024-04-29 12:05 | XMS_ITS | Clinical Summary ---
Author Organization [facility] Address [place], [place] [address] Care Team Providers Care Bridge Manager Name Role Phone Raoul Mohamud MD Primary [...] 24 hrs Active atorvastatin (LIPITOR) 40 mg tabletIndications:NSTE NJ (non-ST elevated myocardial infarction) (HC) Take 1 Tablet (40 mg) by mouth at bedtime. 30 Tablet 2 03/10/2024 Active metoprolol succinate (TOPROL XL) 25 mg Sustained-Release tabletIndications:NSTE NJ (non-ST elevated myocardial infarction) (HC) Take 1 Tablet (25 mg) by mouth once daily. 30 Tablet 2 03/10/2024 Active nitroglycerin (NITROSTAT) 0.4 mg sublingual tabletIndications:NSTE NJ (non-ST elevated myocardial infarction) (HC) Place 1 Tablet (0.4 mg) under the tongue every 5 minutes if needed for Chest pain 1st choice (Hold if SBP less than 90 mmHg). Up to 3 tablets in 15 minutes. 25 Tablet 03/10/2024 Active apixaban (ELIQUIS) 5 mg tabletIndications:prev ent thromboembolism in chronic atrial fibrillation Take 1 Tablet (5 mg) by mouth two times daily. Do not start before March 11, 2024. 60 Tablet 2 03/11/2024 Active clopidogreL (PLAVIX) 75 mg tabletIndications:NSTE NJ (non-ST elevated myocardial infarction) (HC) Take 1 Tablet (75 mg) by mouth once daily in the morning. Do not start before March 11, 2024. 30 Tablet 2 03/11/2024 Active Active Problems Problem Noted Date Diagnosed Date NSTEMI (non-ST elevated myocardial infarction) 0 03/08/2024 Malignant melanoma of skin of scalp and neck Sensorineural hearing loss, bilateral 06/15/2007 Sinoatrial node dysfunction 08/16/2006 Unspecified essential hypertension 08/16/2006 PAROXYSMAL ATRIAL FIBRILLATION 08/16/2006 Overview (08/16/2006): s/p radiofrequency ablation 2003 and 2004 Encounters Date Type Department Care Team Description 04/27/2024 11:08 AM CDT - 04/27/2024 11:59 PM CDT Hospital Encounter [facility] [address] [place] [address] 04/27/2024 Travel 04/25/2024 11:09 AM CDT - 04/25/2024 11:59 PM CDT Hospital Encounter [facility] [address] [place] [address] 04/25/2024 Travel 04/22/2024 11:06 AM CDT - 04/22/2024 11:59 PM CDT Hospital Encounter [facility] [address] [place] [address] 04/22/2024 Travel 04/20/2024 11:13 AM CDT - 04/20/2024 11:59 PM CDT Hospital Encounter [facility] [address] [facility] [place] [address] 04/20/2024 Travel 04/18/2024 11:10 AM CDT - 04/18/2024 11:59 PM CDT Hospital Encounter [facility] [address] [place] [address] 04/18/2024 Travel 04/15/2024 11:04 AM CDT - 04/15/2024 11:59 PM CDT Hospital Encounter [facility] [address] [facility] [place] [address] 04/15/2024 Travel 04/13/2024 11:05 AM CDT - 04/13/2024 11:59 PM CDT Hospital Encounter [facility] [address] [facility] [place] [address] 04/13/2024 Travel 04/11/2024 11:09 AM CDT - 04/11/2024 11:59 PM CDT Hospital Encounter [facility] [address] [facility] [place] [address] 04/11/2024 Travel 04/08/2024 11:09 AM CDT - 04/08/2024 11:59 PM CDT Hospital Encounter [facility] [address] [facility] [place] [address] 04/08/2024 Travel 04/06/2024 11:20 AM CDT - 04/06/2024 11:59 PM CDT Hospital Encounter [facility] [address] [place] [address] 04/06/2024 Travel 03/30/2024 11:11 AM CDT - 03/30/2024 11:59 PM CDT Hospital Encounter [facility] [address] [facility] [place] [address] 03/30/2024 Travel 03/28/2024 11:19 AM CDT - 03/28/2024 11:59 PM CDT Hospital Encounter [facility] [address] [place] [address] 03/28/2024 Travel 03/25/2024 11:30 AM CDT - 03/25/2024 11:59 PM CDT Hospital Encounter [facility] [address] [place] [address] 03/24/2024 10:50 AM CDT - 03/24/2024 11:59 PM CDT Hospital Encounter [facility] [address] [place] [address] Rocio Diallo MD Cardiovascular symptoms; NSTEMI (non-ST elevated myocardial infarction) (HC) 03/24/2024 Telephone [facility] [address] [place] [address] John Tidwell AuD Hearing Aid 03/24/2024 Travel 03/08/2024 7:50 PM CDT - 03/10/2024 7:08 PM CDT Hospital Encounter [facility] [address] [place] [address] [facility], [facility] Hospitalists Of Saravanan Means MD Larson, Krista Lynn, MD NSTEMI (non-ST elevated myocardial infarction) (HC) (Primary Dx); Cardiovascular symptoms; Atrial fibrillation, unspecified type (HC) Discharge Disposition: Home Self Care 03/08/2024 Telephone [facility] [address] [place] [address] Lj Vega MD from Last 3 Months Social History Tobacco Use Types Packs/Day Years Used Date Smoking Tobacco: Never Tobacco Cessation:Counseling Given: Yes Alcohol Use Standard Drinks/Week Comments Not Asked 0 (1 standard drink = 0.6 oz pur e alcohol) PHQ-2 Answer Date Recorded PHQ-2 TOTAL SCORE 0 03/24/2024 Social Connections Answer Date Recorded Frequency of Communication with Friends and Fami ly Not on file 03/08/2024 Sex and Gender Information Value Date Recorded Sex Assigned at Not on file Gender Identity Not on file Sexual Orientation Not on file Obstetrics History Last Filed Vital Signs Vital Sign Reading Time Taken Comments Blood Pressure 130/74 03/24/2024 2:00 PM CDT Pulse 98 03/24/2024 2:00 PM CDT Temperature 36.6 ??C (97.8 ??F) 03/10/2024 1:30 AM CD T Respiratory Rate 20 03/24/2024 2:00 PM CDT Oxygen Saturation 99% 03/24/2024 2:00 PM CDT Inhaled Oxygen Concentration - - Weight 93.1 kg (205 lb 4.8 oz) 03/24/2024 2:00 P M CDT Height 182.9 cm (6') 03/24/2024 2:00 PM CDT Body Mass Index 27.84 03/24/2024 2:00 PM CDT Plan of Treatment Upcoming Encounters Date Type Department Care Team (Late st Contact Info) Description 05/02/2024 11:30 AM CDT Appointment [address] [address] 05/04/2024 11:30 AM CDT Appointment [address] [address] 05/06/2024 11:30 AM CDT Appointment [address] [address] 05/09/2024 11:30 AM [employer]ORTING [employer] SALESPERSON Appointment [address] [address] 05/10/2024 11:00 AM [employer]ING [employer] SALESPERSON Office Visit [facility] [address] [place] [address] Gómez Cruz MD [address] [address] 05/11/2024 11:30 AM [employer]ING [employer] SALESPERSON Appointment [address] [address] 05/13/2024 11:30 AM [employer]ING [employer] SALESPERSON Appointment [address] [address] 05/16/2024 11:30 AM [employer]ING [employer] SALESPERSON Appointment [address] [address] 05/18/2024 11:30 AM [employer]ING [employer] SALESPERSON Appointment [facility] [address] [facility] [place] [address] 05/20/2024 11:30 AM SP[employer]ING [employer] SALESPERSON Appointment [facility] [address] [facility] [place] [address] 05/23/2024 11:30 AM [employer]ING [employer] SALESPERSON Appointment [facility] [address] [facility] [place] [address] 05/25/2024 11:30 AM SP[employer]ING [employer] SALESPERSON Appointment [facility] [address] [facility] [place] [address] 05/27/2024 11:30 AM SP[employer]ING [employer] SALESPERSON Appointment [facility] [address] [facility] [place] [address] 05/30/2024 11:30 AM SP[employer]ING [employer] SALESPERSON Appointment [facility] [address] [facility] [place] [address] 06/01/2024 11:30 AM SP[employer]ING [employer] SALESPERSON Appointment [facility] [address] [facility] [place] [address] 06/03/2024 11:30 AM SP[employer]ING [employer] SALESPERSON Appointment [facility] [address] [facility] [place] [address] 06/06/2024 11:30 AM SP[employer]ING [employer] SALESPERSON Appointment [facility] [address] [facility] [place] [address] 06/08/2024 11:30 AM SPORTING [employer] SALESPERSON Appointment [facility] [address] [facility] [place] [address] 06/10/2024 11:30 AM SP[employer]ING [employer] SALESPERSON Appointment [facility] [address] [facility] [place] [address] 06/13/2024 11:30 AM SPORTING [employer] SALESPERSON Appointment [facility] [address] [facility] [place] [address] Health Maintenance Due Date Last Done Comments Pneumococcal series for age 65+ (1 of 2 - PCV) 1945 Tdap 1950 BMI (ht and wt on same day) for age 18+ 1957 Tetanus booster 1959 Zoster (shingles) series for age 50+ (1 of 2) 1989 Medicare Wellness for age 65+ 02/24/2004 RSV vaccine for adults or (1 - 1-dose 75+ series) 2014 COVID-19 vaccine series ( season) 2024 11/09/2023, 05/19/2023, 02/03/2023, Additional history exists Influenza for age 65+ 03/06/2024 Depression screening for age 12+ 03/28/2025 03/28/2024, 03/25/2024, 03/24/2024, Additional history exists Procedures Procedure Name Priority Date/Time Associated Diagnosis Comments SCAN-CARDIAC REHABILITATION 04/27/2024 11:21 AM CDT SCAN-CARDIAC REHABILITATION 04/25/2024 11:19 AM CDT SCAN-CARDIAC REHABILITATION 04/22/2024 11:22 AM CDT SCAN-CARDIAC REHABILITATION 04/20/2024 11:24 AM CDT SCAN-CARDIAC REHABILITATION 04/18/2024 11:22 AM CDT SCAN-CARDIAC REHABILITATION 04/15/2024 11:21 AM CDT SCAN-CARDIAC REHABILITATION 04/13/2024 11:18 AM CDT SCAN-CARDIAC REHABILITATION 04/11/2024 11:21 AM CDT SCAN-CARDIAC REHABILITATION 04/08/2024 11:20 AM CDT SCAN-CARDIAC REHABILITATION 04/06/2024 11:25 AM CDT SCAN-CARDIAC REHABILITATION 04/06/2024 11:25 AM CDT SCAN-CARDIAC REHABILITATION 03/30/2024 11:20 AM CDT SCAN-CARDIAC REHABILITATION 03/28/2024 11:15 AM CDT SCAN-CARDIAC REHABILITATION 03/25/2024 11:24 AM CDT SCAN-CARDIAC REHABILITATION 03/24/2024 12:04 PM CDT CREATININE Add On 03/10/2024 8:28 AM CDT [...] 12 LEAD SHABNAM 03/09/2024 4:36 PM CDT [facility] ACTIVATED CLOTTING TM CV Timed 03/09/2024 3:57 PM CDT [facility] ACTIVATED CLOTTING TM CV Timed 03/09/2024 3:41 PM CDT CVL CORONARY ANGIOGRAM POSS PCI [...] Timed 03/09/2024 5:01 AM CDT HEMOGLOBIN A1C MONITORING (POCT) Early AM 03/09/2024 5:01 AM CDT LIPID [...] CDT from Last 3 Months Results * SCAN-CARDIAC REHABILITATION (04/27/2024 11:21 AM CDT) Only the most recent of15 resultswithin the time period is included. Scanner OTHER * POTASSIUM (03/10/2024 8:28 AM CDT) [facility] POTASSIUM 4.0 3.5 - 5.1 mmol/L 03/10/2024 9:22 AM CDT [facility] Blood BLOOD SPECIMEN / Unknown Butterfly / Unknown 03/10/2024 8:28 AM CDT 03/10/2024 8:39 AM CDT Valerie Mcnally RN CHEMISTRY Performing Organization Address [facility] Co de Phone Number [facility] [address] [place] [address], * (ABNORMAL) Creatinine FOR ADD ON (03/10/2024 8:28 AM CDT) Only the most recent of2 resultswithin the time period is included. eGFR 65(L) >90 mL/min/1.7 3m2 03/10/2024 10:12 AM CDT [facility] Comment:As of 2021, eG FR is calculated by the CKD-EPI creatinine equation without race adjustment. ??eGFR can be influenced by muscle mass, exercise, and diet. ??The reported eGFR is an estimation only and is only applicable if the renal function is stable. CREATININE 1.11 0.70 - 1.20 mg/dL 03/10/2024 10:12 AM CDT [facility] Blood BLOOD SPECIMEN / Unknown Butterfly / Unknown 03/10/2024 8:28 AM CDT 03/10/2024 8:39 AM CDT Kristin Adair NP CHEMI STRY Performing Organization Address [facility] Co de Phone Number [facility] [address] [place] [address], [place] * PLATELET COUNT (03/10/2024 6:19 AM CDT) PLATELET COUNT 215 140 - 440 thou/cu mm 03/10/2024 6:46 AM CDT [facility] MPV 9.3 6.5 - 11.0 fL 03/10/2024 6:46 AM CDT [facility] Blood BLOOD SPECIMEN / Unknown Venipuncture / Unknown 03/10/2024 6:19 AM CDT 03/10/2024 6:34 AM CDT Narrative [facility] - 03/10/2024 6:46 AM CDT Every morning while on IV heparin. Every morning while on IV heparin. Necessary every morning while on IV heparin. Saravanan Means MD HEMATOLOGY Performing Organization Address [facility] Co de Phone Number [facility] [address] [place] [address], * HEMOGLOBIN (03/10/2024 6:19 AM CDT) HEMOGLOBIN 14.4 13.5 - 17.5 g/dL 03/10/2024 6:46 AM CDT [facility] MCV 97 80 - 100 fL 03/10/2024 6:46 AM CDT [facility] Blood BLOOD SPECIMEN / Unknown Venipuncture / Unknown 03/10/2024 6:19 AM CDT 03/10/2024 6:34 AM CDT Narrative [facility] - 03/10/2024 6:46 AM CDT Every morning while on IV heparin. Every morning while on IV heparin. Necessary every morning while on IV heparin. Saravanan Means MD HEMATOLOGY Performing Organization Address [facility] Co de Phone Number [facility] [address] [place] [address], * HEMATOCRIT (03/10/2024 6:19 AM CDT) HEMATOCRIT 42.9 37.0 - 53.0 % 03/10/2024 6:46 AM CDT [facility] Blood BLOOD SPECIMEN / Unknown Venipuncture / Unknown 03/10/2024 6:19 AM CDT 03/10/2024 6:34 AM CDT [facility] - 03/10/2024 6:46 AM CDT Every morning while on IV heparin. Every morning while on IV heparin. Necessary every morning while on IV heparin. Saravanan Means MD HEMATOLOGY Performing Organization Address [facility] de Phone Number [facility] [address] [place] [address], * APTT (03/10/2024 6:19 AM CDT) Only the most recent of4 resultswithin the time period is included. APTT 29 28 - 36 sec 03/10/2024 6:57 AM CDT [facility] Blood BLOOD SPECIMEN / Unknown Venipuncture / Unknown 03/10/2024 6:19 AM CDT 03/10/2024 6:34 AM CDT Narrative [facility] - 03/10/2024 6:57 AM CDT Therapeutic Range: 57-87 seconds Vanessa Fan MD HEMATOLOGY Performing Organization Address [facility] de Phone Number [facility] [address] [place] [address], * MAGNESIUM (03/10/2024 6:19 AM CDT) Only the most recent of2 resultswithin the time period is included. MAGNESIUM 2.3 1.6 - 2.4 mg/dL 03/10/2024 7:07 AM CDT [facility] Blood BLOOD SPECIMEN / Unknown Venipuncture / Unknown 03/10/2024 6:19 AM CDT 03/10/2024 6:34 AM CDT Valerie Mcnally RN CHEMISTRY Performing Organization Address [facility] Co de Phone Number [facility] [address] [place] [address], * SCAN-CARDIAC STRIP (03/10/2024 12:04 AM CDT) Scanner OTHER * (ABNORMAL) GLUCOSE METER (03/09/2024 9:14 PM CDT) GLUCOSE METER 144(H) 65 - 100 mg/dL 03/09/2024 9:15 PM CDT [facility] Blood BLOOD SPECIMEN / Unknown 03/09/2024 9:14 PM CDT 03/09/2024 9:15 PM CDT Vanessa Fan MD CHEMISTRY Performing Organization Address City/[facility]/ZIP Co de Phone Number [facility] [address] [place] [address], * SCAN-CARDIAC STRIP (03/09/2024 5:10 PM CDT) [...] NOW QTc 490 ms BEYOND NOW P Xenia degrees BEYOND NOW R Xenia 9 degrees BEYOND NOW T Xenia -84 degrees BEYOND NOW 03/09/2024 4:36 PM CDT 03/09/2024 8:48 PM CDT Rocio Diallo MD EKG ORD Performing Organization Address [facility] Co de Phone Number BEYOND NOW [place], [place] * (ABNORMAL) ACTIVATED CLOTTING TIME [id number] ACT (03/09/2024 3:57 PM CDT) Only the most recent of2 resultswithin the time period is included. ACTIVATED CLOTTING TIME, POCT 295(H) 74 - 125 sec 03/16/2024 4:57 PM CDT [facility] Blood BLOOD SPECIMEN / Unknown 03/09/2024 3:57 PM CDT 03/16/2024 4:57 PM CDT Vanessa Fan MD HEMATOLOGY [facility] [address] [place] [address], * CVL CORONARY ANGIOGRAM POSS PCI (03/09/2024 3:35 PM CDT) Anatomical Region Laterality Modality Other 03/09/2024 3:35 PM CDT Narrative Transcriptions Gómez rCuz MD - 03/09/2024 4:41 PM CDT [facility] Cardiac Catheterization Report Name: LUCIANO ROBERTSON Event Date: 03/09/2024 15:35 [facility] ID #: [id number] VERONIKA #: [id number] Patient Class: Inpatient Diagnostic Physician: GÓMEZ CRUZ [facility] Interventional Physician: GÓMEZ CRUZ [facility] Referring Physician: Primary Care Physician: RAOUL MOHAMUD [...] Optimize risk factors and medications Consent & [place] Protocol The risks, benefits, and alternatives of the procedure were discussed withthe patient and written informed consent was obtained. [place] protocol was followed. TIME OUT conducted just prior tostarting procedure confirmed patient identity, site/side, procedure,patient position, and availability of correct equipment and implants (ifapplicable). Staff Name Title GÓMEZ CRUZ Diagnostic Indian Trader Debra Perkins RN Nurse Cory Mckeon CVT Scrub Satish Silva CVT Monitor Rocio Diallo Fellow GÓMEZ CRUZ Dressage Judge Procedures ? Ultrasound Guided Vascular Access ? [...] 1 Mid Circumflex Balloon BLLN EUPH[place] RX [id number] 1 Mid Circumflex Drug Eluting Stent AIDAN ANN MARIE [place] RX [id number] 1 Mid Circumflex Balloon BLLN EU[place] NC [...] hr IV 15:35 Versed 1 mg IV Mary Ellensal GómezDebra Valera RN 15:35 Fentanyl 50 mcg IV Gómez Cruz Tammy RN 15:37 1% Lidocaine 10 ml Subcut Gómez Cruz Jaskanwal 15:52 Heparin 9000 units IV Mary Ellensal GómezDebra Valera RN 15:52 Ticagrelor/Brilinta 180 mg PO Gómez [...] healthcare professional providing the sedation ends personal [id number] time with the patient. The medications listed above were verbally ordered by me and read back tome as documented above. Refer to the procedure log report for additional case details. electronically signed on 03/09/2024 4:41:31 PM with status of Final Gómez Cruz MD [facility] [address] [place] [address] (p) (f) Provider Referring CV IMAGING * ECHO TTE COMPLETE W CONTRAST (03/09/2024 2:35 PM CDT) AORTIC VALVE MEAN PG 4 mmHg EJECTION FRACTION 58 % EJECTION FRACTION 55 - 60% LVEDD 5.0 cm Anatomical Region Laterality Modality Ultrasound 03/09/2024 12:3 0 PM CDT Narrative 03/09/2024 2:52 PM CDT ECHOCARDIOGRAM LUCIANO ROBERTSON ? Accession#: ?? [id number] : ?1940 84 years Study Date: ?? 03/09/2024 12:30:52 PM Gender: M ?BP: ? 148/76 mmHg Height: 195.00 cm ?BSA: ?2.20 m? ? ? Weight: 88.00 kg ? Tech: ? MELISSA ? Referring MD: SARAVANAN MEANS Site: ? [facility] Reading Location: [facility] Patient Location: Inpatient. Procedure: 2D w/ Contrast, [...] documentation: 2 ml diluted Definity, lot #[id number], [facility]# [id number] was administered peripherally to enhance visualization of all left ventricular segments. . This study was interpreted by an [facility] accredited facility. ??Final ?? Procedure Note Vicente Muñoz MD - 03/09/2024 ECHOCARDIOGRAM LUCIANO ROBERTSON : 1940 84 years Study Date: 03/09/2024 12:30:52 PM Gender: M BP: 148/76 mmHg Height: 195.00 cm BSA: 2.20 m? ? ? Weight: 88.00 kg Tech: MELISSA Gabriel MD: SARAVANAN MEANS Site: [facility] Reading Location: [facility] Patient Location: Inpatient. Procedure: 2D w/ Contrast, [...] documentation: 2 ml diluted Definity, lot #[id number], [facility]#[id number] was administered peripherally to enhance visualization of allleft ventricular segments. . This study was interpreted by an [facility] accredited facility. Final Saravanan Means MD ECHO [...] VT however irregular ventricular rates). AP 33.1%, TANKER SERVICEMAN 2.3%. Estimated 4 years battery longevity remaining. Indication for Pacemaker: Sinus Node Dysfunction - Tachy/Junior Primary MD: Raoul Mohamdu MD Implanting MD: Dr. Rigoberto Rivera DEVICE DATA Category Director Adapta L ADDRL1 SN: [id number] ??Implant Date 11/19/2012 LEAD DATA Atrial Lead: Category Director [employer] 5068-52 [id number] ??Implant Date 09/30/1999 RV Lead: Category Director [employer] 5092- 58 [id number] ??Implant Date 09/30/1999 Location of evaluation: [facility] Reason for evaluation: MD Request MEASUREMENTS Atrial [...] requested while hospitalized - patient follows with [facility] for device care. Sia Broderick, RN Nurse Clinician II [facility] Pacemaker/ICD Clinic [phone] Moises William MD CARDIAC SERVIC ES ORD [...] WITH AUTO DIFFERENTIAL (03/09/2024 5:01 AM CDT) WHITE BLOOD COUNT 10.6 4.5 - 11.0 thou/cu mm 03/09/2024 5:43 AM CDT [facility] RED BLOOD COUNT 4.33 4.30 - 5.90 mil/cu mm 03/09/2024 5:43 AM CDT [facility] HEMOGLOBIN 14.1 13.5 - 17.5 g/dL 03/09/2024 5:43 AM CDT [facility] HEMATOCRIT 41.4 37.0 - 53.0 % 03/09/2024 5:43 AM CDT [facility] MCV 96 80 - 100 fL 03/09/2024 5:43 AM CDT [facility] MCH 32.6 26.0 - 34.0 pg 03/09/2024 5:43 AM CDT [facility] MCHC 34.1 32.0 - 36.0 g/dL 03/09/2024 5:43 AM CDT [facility] RDW 12.4 11.5 - 15.5 % 03/09/2024 5:43 AM CDT [facility] PLATELET COUNT 213 140 - 440 thou/cu mm 03/09/2024 5:43 AM CDT [facility] MPV 9.5 6.5 - 11.0 fL 03/09/2024 5:43 AM CDT [facility] NRBC 0.0 % 03/09/2024 5:43 AM CDT [facility] ABS NRBC 0.0 thou /cu mm 03/09/2024 5:43 AM CDT [facility] % NEUT 52.8 % 03/09/2024 5:43 AM CDT [facility] % LYMPH 32.0 % 03/09/2024 5:43 AM CDT [facility] % MONO 11.7 % 03/09/2024 5:43 AM CDT [facility] % EOS 2.2 % 03/09/2024 5:43 AM CDT [facility] % BASO 0.9 % 03/09/2024 5:43 AM CDT [facility] % IMMATURE GRAN (METAS,MYELOS,DC OS) 0.4 % 03/09/2024 5:43 AM CDT [facility] ABSOLUTE NEUTROPHILS 5.6 1.7 - 7.0 thou/cu mm 03/09/2024 5:43 AM CDT [facility] ABSOLUTE LYMPHOCYTES 3.4(H) 0.9 - 2.9 thou/cu mm 03/09/2024 5:43 AM CDT [facility] ABSOLUTE MONOCYTES 1.2(H) <0.9 thou/cu mm 03/09/2024 5:43 AM CDT [facility] ABSOLUTE EOSINOPHILS 0.2 <0.5 thou/cu mm 03/09/2024 5:43 AM CDT [facility] ABSOLUTE BASOPHILS 0.1 <0.3 thou/cu mm 03/09/2024 5:43 AM CDT [facility] ABSOLUTE IMMATURE GRANULOCYTES(MET ,MYELOS,PROS) 0.0 <0.3 thou/cu mm 03/09/2024 5:43 AM CDT [facility] Blood BLOOD SPECIMEN / Unknown Venipuncture / Unknown 03/09/2024 5:01 AM CDT 03/09/2024 5:07 AM CDT Saravanan Means MD [facility]OLOGY [facility] [address] [place] [address], * Screening hemoglobin A1c AM (order if not done w/in 3 mos) (03/09/2024 5:01 AM CDT) HEMOGLOBIN A1C MONITORING (POCT) 5.6 <=6.4 % 03/09/2024 7:05 AM CDT [facility] Blood BLOOD SPECIMEN / Unknown Venipuncture / Unknown 03/09/2024 5:01 AM CDT 03/09/2024 5:07 AM CDT Narrative [facility] - 03/09/2024 7:05 AM CDT ? (<=6.9%) [...] Anemias, Splenectomy ? Saravanan Means MD CHEMISTRY [facility] [address] [place] [address], * Lipid Panel AM (03/09/2024 5:01 AM CDT) [facility] CHOLESTEROL,TOTAL 175 100 - 199 mg/dL 03/09/2024 5:42 AM [facility] Comment: Cholesterol, Total Reference Ranges Desirable <200 mg/dL Borderline 200-239 mg/dL High >=240 mg/dL TRIGLYCERIDES 61 <150 mg/dL 03/09/2024 5:42 AM [facility] HDL CHOLESTEROL 51 >40 mg/dL 5:42 AM T [facility] NON-HDL CHOLESTEROL 124 <145 mg/dl 03/09/2024 5:42 AM T [facility] CHOL/HDL RATIO 3.43 <4.50 03/09/2024 5:42 AM [facility] LDL CHOLESTEROL 112 <=130 mg/dL 03/09/2024 5:42 AM [facility] VLDL CHOLESTEROL 12 <=30 mg/dL 03/09/2024 5:42 AM CDT [facility] PROVIDER ORDERED STATUS RANDOM 03/09/2024 5:42 AM T [facility] Blood BLOOD SPECIMEN / Unknown Venipuncture / Unknown 03/09/2024 5:01 AM CDT 03/09/2024 5:07 AM CDT Saravanan Means MD CHEMISTRY [facility] [address] [place] [address], * (ABNORMAL) Basic metabolic panel AM (03/09/2024 5:01 AM CDT) SODIUM 143 136 - 145 mmol/L 03/09/2024 5:42 AM CDT [facility] POTASSIUM 3.7 3.5 - 5.1 mmol/L 03/09/2024 5:42 AM [facility] CHLORIDE 109(H) 98 - 107 mmol/L 03/09/2024 5:42 AM T [facility] CO2,TOTAL 25 22 - 29 mmol/L 03/09/2024 5:42 AM T [facility] ANION GAP 9 5 - 18 03/09/2024 5:42 AM [facility] GLUCOSE 99 70 - 99 mg/dL 03/09/2024 5:42 AM [facility] CALCIUM 8.8 8.8 - 10.2 mg/dL 03/09/2024 5:42 AM T [facility] BUN 19 8 - 23 mg/dL 03/09/2024 5:42 AM T [facility] CREATININE 1.03 0.70 - 1.20 mg/dL 03/09/2024 5:42 AM [facility] BUN/CREAT RATIO 18 10 - 20 5:42 AM T [facility] eGFR 71(L) >90 mL/min/1.7 3m2 03/09/2024 5:42 AM CDT [facility] [employer] ([email or web address])[facility] Comment:As of 2021, eG [...] 5:07 AM CDT Saravanan Means MD CHEMISTRY Performing Organization Address [facility] Co de Phone Number [facility] [address] [place] [address], * SCAN-CARDIAC STRIP (03/08/2024 11:20 PM CDT) Scanner OTHER * (ABNORMAL) TROPONIN T (HS) ONE TIME (03/08/2024 11:08 PM CDT) TROPONIN T HS 198(H) 6-15 ng/L ng/L 03/08/2024 11:54 PM CDT [facility] [employer] ([email or web address])[facility] Blood BLOOD SPECIMEN / Unknown Venipuncture / Unknown 03/08/2024 11:08 PM CDT 03/08/2024 11:14 PM CDT Saravanan Means MD CHEMISTRY Performing Organization Address City/[facility]/ZIP Co de Phone Number [facility] [address] [place] [address], * (ABNORMAL) TROPONIN T (HS) ACUTE W/2HR REFLEX (03/08/2024 9:03 PM CDT) TROPONIN T HS 179(H) 6-15 ng/L ng/L 03/08/2024 10:01 PM CDT [facility] Blood BLOOD SPECIMEN / Unknown Butterfly / Unknown 03/08/2024 9:03 PM CDT 03/08/2024 9:24 PM CDT Narrative [facility] - 03/08/2024 10:01 PM CDT hs-cTnT [...] department patient population. Saravanan Means MD CHEMISTRY [facility] [address] [place] [address], * BUN (03/08/2024 9:03 PM CDT) BUN 21 8 - 23 mg/dL 03/08/2024 10:01 PM CDT [facility] Blood BLOOD SPECIMEN / Unknown Butterfly / Unknown 03/08/2024 9:03 PM CDT 03/08/2024 9:24 PM CDT Saravanan Means MD CHEMISTRY Performing Organization Address [facility] Co de Phone Number [facility] [address] [place] [address], [place] * (ABNORMAL) PROTIME-INR (03/08/2024 9:03 PM CDT) INR 1.3(H) <1.3 03/08/2024 9:52 PM CDT [facility] PROTIME 14.3(H) 10.3 - 12.3 sec 03/08/2024 9:52 PM CDT [facility] Blood BLOOD SPECIMEN / Unknown Butterfly / Unknown 03/08/2024 9:03 PM CDT 03/08/2024 9:24 PM CDT Narrative [facility] - 03/08/2024 9:52 PM CDT [...] is on [facility]. Saravanan Means MD HEMATOLOGY Performing Organization Address [facility] Co de Phone Number [facility] [address] [address], [place] from Last 3 Months Advance Directives * [...] 9:47 AM 01/16/2005 9:51 AM Care Teams Bridge Manager Relationship Specialty Start Date End Date Raoul Mohamud MD [address] [place] [address] PCP - General 11/18/12
--- OUTSIDE RECORDS SUMMARY | 2024-04-29 12:05 | XMS_ITS | Encounter Summary ---
Author Organization [place] Address [facility] [place] [address] Care Team Providers Care Behavior Analyst Name Role Phone Nico Arnold MD Primary Care Provider [phone] Raoul Rwoe MD Primary Care Provider Idania Iraheta MD Primary Care Provider [phone] Encounter Details Date Type Department Care Team (Late st Contact Info) Description 01/16/[address] [place] [address] Nico Arnold MD [facility] [address] [place] [address] JAS DISCHARGE SUMMARY (Primary Dx) Social History Tobacco Use Types Packs/Day Years Used Date Smoking Tobacco: Never Smokeless Tobacco: Never Alcohol Use Standard Drinks/Week Comments No 0 (1 standard drink = 0.6 oz pur e alcohol) no alcohol for last 8 years Sex and Gender Information Value Date Recorded Sex Assigned at Not on file Legal Sex Male 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 Gender Identity Not on file Sexual Orientation Not on file 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 Not on file Not on file documented as of this encounter Plan of Treatment Not on file documented as of this encounter Visit Diagnoses Diagnosis MARK NW DISCHARGE SUMMARY- Primary documented in this encounter Care Teams Behavior Analyst Relationship Specialty Start Date End Date Nico Arnold MD [place] [address] [place] [address] PCP - General 08/20/01 04/22/12 Raoul Rowe MD [facility] [address] [place] [address] PCP - General 04/23/12 06/29/14 Idania Iraheta MD [facility] [address] [place] [address] PCP - General Internal Medicine 06/30/14 documented as of this encounter
--- OUTSIDE RECORDS SUMMARY | 2024-04-29 12:05 | XMS_ITS | Encounter Summary ---
Author Organization [place] Address [facility] 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 SPECIALIST Gender Identity Not on file Sexual Orientation Not on file 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 Not on file Not on file documented as of this encounter Plan of Treatment Not on file documented as of this encounter Visit Diagnoses Diagnosis MARK NW POST OP NOTE, ANESTHESIA ASSESSMENT- Primary documented in this encounter Care Teams Research Computing Specialist Relationship Specialty Start Date End Date Nico Arnold MD [facility] [address] [place] [address] PCP - General 08/20/01 04/22/12 Raoul Rowe MD [facility] [address] [place] [address] PCP - General 04/23/12 06/29/14 Idania Iraheta MD [facility] [address] [place] [address] PCP - General Internal Medicine 06/30/14 documented as of this encounter
[2024-04-29 12:15] LABS: Chloride* 105 mmol/L (96-114); Sodium* 138 mmol/L (135-149)
[2024-04-29 12:17] LABS: Creatinine* 1.1 mg/dL (0.5-1.5); Est. Creatinine Clearance* 60.28; Estimated Glomerular Filt Rate 66 ml/min
[2024-04-29 12:18] LABS: Anion Gap 9 mEq/L (7-15); Blood Urea Nitrogen* 22 mg/dL (7-30); Calcium* 9.3 mg/dL (8.4-10.6); Carbon Dioxide* 24 mmol/L (20-32); Glucose* 90 mg/dL (60-115)
[2024-04-29 12:32] LABS: Troponin I* < 0.01 ng/mL (0.01-0.04)
== END 2024-04-29 13:18 | disposition home or self-care (01) ==
PROVIDERS: Emergency Provider Emergency Medicine; PCP Internal Medicine
DX: M25.512 Pain in left shoulder (principal); I48.20 Chronic atrial fibrillation, unspecified
CPT/HCPCS: 36415; 71046; 73030; 80048; 84484; 85025; 93005; 99284

== ENCOUNTER 2025-03-27 13:52 | Emergency (ER) | payer MEDICARE, BC, SELFPAY ==
--- OUTSIDE RECORDS SUMMARY | 2008-08-23 10:00 | XMS_ITS | Continuity of Care Document ---
Author Organization MAHAMED Palmer Address [address] [place] [address] Phone Care Team Providers Care Meat Pickler Name Role Phone Giacomo Orellana PA-C Unavailable Unavailable Allergies, Adverse Reactions, Alerts Substance Reaction Status Criticality diltiazem Active No Information WARNIN allergy(ies) could not be collected because the type is not supported. Please contact the source practice for further details. Medications Medication Instructions Dosage Effective Dates (start - stop) Status Comments Norvasc 5 mg Tab unknown - Active Cozaar 50 mg Tab unknown - Active aspirin 81 mg Chewable Tab Unknown sig code, RX from another provider - Active CENTRUM SILVER (unknown strength) unknown Not Available - Active Lidoderm 5 % (700 mg/patch) Adhesive Patch Apply 1 patch to skin for up to 12 hours out of a 24 hour period - No Longer Active Procedures Procedure Date Offic Cons New/estab Mod 40 Mi 09 Patient encounter was documented using a CCHIT cer Current Med Dosages Verified & Documente d Triggerpoint 1-2 Muscle Advance Directives Directive Yes / No Effective Date File Name No Information Encounters Encounter Description Practice Location Reason(s) For Visit Diagnoses Date Provider Providers Copied on Encounter Offic Cons New/estab Mod 40 Mi MA[facility]AMED Palmer, [address], [place], [place], [id number], [place] tel:[phone] [facility] No Information 8200 [address] Reyna Gooden. [address], [address], [place], [address], [place]. tel:[phone] Referring Provider: Calos Feliciano, [address] [facility] [place], [address]. tel:[phone] RANDY Palmer, [address], [place], [place], [address], [place] tel:[phone] [facility] No Information 9 Qianaisabella Caballero. [address], [place], [address], [place]. tel:[phone] Referring Provider: Calos Feliciano, [address] [facility] [place], [address]. tel:[phone] Family History Family Member Type Diagnosis Age At Onset No Information Payers Payer name Insurance type Covered constitution party ID Lu reyez(s) Blue Plus BL [id number] Social History Type Description Quantity Date Captured Comments Sex Male Smoking Status No Information Chief Complaint And Reason For Visit No Information Reason For Referral Reason For Referral No Information History Of Present Illness Encounter Date Complaint History Of Prese nt Illness No Information Functional Status Date Functional Assessmen t No Information Instructions Date Instruction Additional Infor mation No Information Assessments Type Assessment Date No Information Patient Care Teams Name Effective Dates (start - stop) Status Members No Information
--- OUTSIDE RECORDS SUMMARY | 2008-08-23 10:00 | XMS_ITS | Continuity of Care Document ---
Author Organization MAHAMED Palmer Address [address] [facility] [address] [place] [address] Phone Care Team Providers Care Scheduling Administrator Name Role Phone Giacomo Orellana PA-C Unavailable [...] New/estab Mod 40 Mi MAHAMED Palmer, [address], [place], [place], [id number], [place] tel:[phone] [facility] No Information 8200 [address] Reyna Gooden. [address], [address], [place], [address], [place]. tel:[phone] Referring Provider: Calos Feliciano, [address] [facility] [place], [address]. tel:[phone] RANDY Palmer, [address], [place], [place], [address], [place] tel:[phone] [facility] No Information 9 Qian[address] Cab[address] [facility], [place], [address], [place]. tel:[phone] Referring Provider: Calos Feliciano, [address] [facility] [place], [address]. tel:[phone] Family History Family Member Type Diagnosis Age At Onset No Information Payers Payer name Insurance type Covered republican ID Lu reyez(s) Blue Plus BL [id number] Social History Type Description Quantity Date Captured [...]
--- OUTSIDE RECORDS SUMMARY | 2025-03-27 13:54 | XMS_ITS | Clinical Summary ---
Author Organization [place] Address [address] [place] [address]. 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 Not on file Not on file Last Filed Vital Signs Vital Sign Reading Time Taken Comments Blood Pressure 151/72 06/10/2018 7:47 AM BILLPOSTER Pulse 82 06/08/2018 3:00 PM BILLPOSTER Temperature 35.7 C (96.3 F) 06/10/2018 7:47 AM BILLPOSTER Respiratory Rate 16 06/10/2018 9:00 AM BILLPOSTER Oxygen Saturation 94% 06/10/2018 7:47 AM BILLPOSTER Inhaled Oxygen Concentration - - Weight 92.1 kg (203 lb) 06/07/2018 6:11 AM BILLPOSTER Height 193 cm (6' 4) 05/28/2018 12:00 PM BILLPOSTER pe r H & P Body Mass Index 24.71 05/28/2018 12:00 PM BILLPOSTER Plan of Treatment Not on file Medical Devices Implanted Type Area Loom Control Chain Builder Device Identifier Shelf Expiration Date Model / Serial / Lot Bone Cement Radiopaque Simplex P Speedset 6192-1-001 Implanted:Qty: 1 on 06/07/2018 by Kermit Dickens MD at [facility] Cement, Bone Left: Knee [employer] 10/04/2019 6192-1-001 / / [id number] Bone Cement Simplex Speed Set Implanted:Qty: 2 on 04/29/2012 by Kermit Dickens MD at [facility] Right: Knee [employer] 11/03/2013 6192-1-001 / / [id number] Imp Comp Patella Yamileth Ii 9x32mm [id number] Implanted:Qty: 1 on 04/29/2012 by Kermit Dickens MD at [facility] Right: Knee [employer] 02/03/2022 [id number] / / [id number] Imp Comp Femoral Yamileth Ii Cr Oxin Sz 6 Rt [id number] Implanted:Qty: 1 on 04/29/2012 by Kermit Dickens MD at [facility] Right: Knee [employer] 08/06/2021 [id number] / / [id number] Imp Baseplate Tibial Yamileth Ii Sz 7 Rt Ti [id number] Implanted:Qty: 1 on 04/29/2012 by Kermit Dickens MD at [facility] Right: Knee [employer] 08/06/2021 [id number] / / [id number] Size 7-8 13mm Legion Cr Xlpe High Flexion Articular Insert Implanted:Qty: 1 on 04/29/2012 by Kermit Dickens MD at [facility] Right: Knee [employer] 07/06/2020 [id number] / / [id number] Imp Latexo Arthrex Bio-Swivelock 5.5mm Ar-2323bcc Implanted:Qty: 1 on 07/11/2013 by Kermit Dickens MD at [facility] Left: Shoulder [employer] 08/05/2013 AR-2323BCC / / [id number] Imp Latexo Arthrex Bio-Swivelock 4.75mm Ar-2324bcm Implanted:Qty: 1 on 07/11/2013 by Kermit Dickens MD at [facility] Left: Shoulder [employer] 01/02/2015 AR-2324BCM / / [id number] Wire Joseph 0.054x4 Implanted:Qty: 1 on 07/17/2014 by Sarthak Pichardo MD at [facility] Left: Toe G SOURCE 78.2040 / / [id number] Wire Joseph 0.045x4 Implanted:Qty: 1 on 07/17/2014 by Sarthak Pichardo MD at [facility] Left: Toe G SOURCE 78.2020 / / 4l Femur Cr Implanted:Qty: 1 on 06/07/2018 by Kermit Dickesn MD at [facility] Left: Knee [employer] 01/02/2021 90-SRK-3124 00 / / [id number] Size 5 Tibia Tray Implanted:Qty: 1 on 06/07/2018 by Kermit Dickens MD at [facility] Left: Knee [employer] 07/17/2021 90-SRK-2005 00 / / [id number] Patella 33mm Implanted:Qty: 1 on 06/07/2018 by Kermit Dickens MD at [facility] Left: Knee [employer] 03/12/2021 90-SRK-4203 00 / / [id number] Insert Cr 4 16mm Implanted:Qty: 1 on 06/07/2018 by Kermit Dickens MD at [facility] Left: Knee [employer] 06/07/2021 90-SRK-1104 16 / / [id number] Insurance MEDICARE REPLACED BY [facility] Advance Directives For more information, please contact: [phone] Documents on File Type Date Recorded Patient Member Services Coordinator Expl anation Advance Directives and Living Will [...] Agents on File Name Relationship Healthcare Agent [facility] p Communication Allisonruslan Robertson Spouse Health Care Agent Jacob Robertson Relative First Alternate Health Care Agent Domenico Robertson Son Second Alternate Health Care Agent Care Teams Hogshead Filler Relationship Specialty Start Date End Date Idania Iraheta MD [facility] [facility] [place] [address] PCP - General Internal Medicine 06/30/14
--- OUTSIDE RECORDS SUMMARY | 2025-03-27 13:54 | XMS_ITS | Encounter Summary ---
Author Organization [place] Address [facility] 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 Gender Identity Not on file Sexual Orientation Not on file 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 Not on file Not on file documented as of this encounter Plan of Treatment Not on file documented as of this encounter Visit Diagnoses Diagnosis MARK NW POST OP NOTE, ANESTHESIA ASSESSMENT- Primary documented in this encounter Care Teams Programming Manager Relationship Specialty Start Date End Date Nico Arnold MD [facility] [address] [place] [address] PCP - General 08/20/01 04/22/12 Raoul Rowe MD [facility] [address] [place] [address] PCP - General 04/23/12 06/29/14 Idania Iraheta MD [facility] [address] [place] [address] PCP - General Internal Medicine 06/30/14 documented as of this encounter
--- OUTSIDE RECORDS SUMMARY | 2025-03-27 13:54 | XMS_ITS | Encounter Summary ---
Author Organization [place] Address [facility] [place] [address] Care Team Providers Care Manager Floor Name Role Phone Nico Arnold MD Primary Care Provider [phone] Raoul Rowe MD Primary Care Provider Idania Iraheta MD Primary Care Provider Encounter Details Date Type Department Care Team (Late st Contact Info) Description 08/17/[address] [place] [address] Nico Arnold MD [facility] [address] [place] [address] [facility] PACEMAKER PROCEDURE NOTE (Primary Dx) Social History Tobacco Use Types Packs/Day Years Used Date Smoking Tobacco: Never Smokeless Tobacco: Never Alcohol Use Standard Drinks/Week Comments No 0 (1 standard drink = 0.6 oz pur e alcohol) no alcohol for last 8 years Sex and Gender Information Value Date Recorded Sex Assigned at Not on file 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 Gender Identity Not on file Sexual Orientation Not on file 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 Not on file Not on file documented as of this encounter Plan of Treatment Not on file documented as of this encounter Visit Diagnoses Diagnosis [facility] PACEM[facility]ER PROCEDURE NOTE- Primary documented in this encounter Care Teams Manager Floor Relationship Specialty Start Date End Date Nico Arnold MD [place] [place] [address] PCP - General 08/20/01 04/22/12 Raoul Rowe MD [facility] [address] [place] [address] PCP - General 04/23/12 06/29/14 Idania Iraheta MD [facility] [address] [place] [address] PCP - General Internal Medicine 06/30/14 documented as of this encounter
--- OUTSIDE RECORDS SUMMARY | 2025-03-27 13:54 | XMS_ITS | Encounter Summary ---
Author Organization [place] Address [address] [facility] [place] [address] Care Team Providers Care Coil Maker Name Role Phone Idania Iraheta MD Primary Care Provider [phone] Encounter Details Date Type Department Care Team (Late st Contact Info) Description 05/17/2018 Orders Only [facility] [address] [place] [phone] Kermit Dickens MD [facility] [address] [place] [address] Pre-operative laboratory examination (Primary Dx) Social History Tobacco Use Types Packs/Day Years Used Date Smoking Tobacco: Never Smokeless Tobacco: Never Alcohol Use Standard Drinks/Week Comments No 0 (1 standard drink = 0.6 oz pur e alcohol) no alcohol for last 8 years Sex and Gender Information Value Date Recorded Sex Assigned at Not on file Legal Sex Male 3:28 AM RADIO AERIAL INSTALLER Gender Identity Not on file Sexual Orientation Not on file 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 aureus PCR (05/20/2018 10:48 AM RADIO AERIAL INSTALLER) Specimen Description Nares 05/20/2018 5:06 PM RADIO AERIAL INSTALLER [facility] Methicillin Resist/Sens S. aureus PCR Negative NEG^Negat jay 05/21/2018 12:22 AM RADIO AERIAL INSTALLER [facility] Comment: MRSA Negative: SA Negative MRSA and Staphylococcus aureus target DNA not detected, presumed negative for MRSA and SA colonization or the number of bacteria present may be below the limit of detection for the assay. FDA approved assay performed using [employer] GeneXpert(R) real-time PCR. Nasal structure (body structure) 05/20/2018 10:48 AM RADIO AERIAL INSTALLER 05/20/2018 5:07 PM RADIO AERIAL INSTALLER us Kermit Dickens MD LAB - MICRO GENERAL ORDERAB LES Final Result [facility] [address] [place], [place] [id number] [place] [address] [phone] documented in this encounter Visit Diagnoses Diagnosis Pre-operative laboratory examination- Primary Pre-procedural laboratory examination documented in this encounter Care Teams Coil Maker Relationship Specialty Start Date End Date Idania Iraheta MD [facility] - [address] [address] PCP - General Internal Medicine 06/30/14 documented as of this encounter
--- OUTSIDE RECORDS SUMMARY | 2025-03-27 13:54 | XMS_ITS | Encounter Summary ---
Author Organization [place] Address [facility] [place] [address] Care Team Providers Care Supervisor Benzene Refining Name Role Phone Nico Arnold MD Primary Care Provider [phone] Raoul Rowe MD Primary Care Provider Idania Iraheta MD Primary Care Provider [phone] Encounter Details Date Type Department Care Team (Late st Contact Info) Description 01/16/[address] [place] [address] Nico Arnold MD [facility] [address] [place] [address] JAS DISCHARGE SUMMARY (Primary Dx) Social History Tobacco Use Types Packs/Day Years Used Date Smoking Tobacco: Never Smokeless Tobacco: Never Alcohol Use Standard Drinks/Week Comments No 0 (1 standard drink = 0.6 oz pur e alcohol) no alcohol for last 8 years Sex and Gender Information Value Date Recorded Sex Assigned at Not on file Legal 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 [address] [place] [address] PCP - General 04/23/12 06/29/14 Idania Iraheta MD [facility] [address] [place] [address] PCP - General Internal Medicine 06/30/14 documented as of this encounter
--- OUTSIDE RECORDS SUMMARY | 2025-03-27 13:54 | XMS_ITS | Clinical Summary ---
Author Organization [facility] Address [address] [place] [id number] Care Team Providers Care Tow Feeder Name Role Phone Idania Iraheta MD Primary Care Provider [phone] Allergies Active Allergy Reactions Criticality Noted Date Comments Diltiazem Edema 08/14/2006 Losartan Cough 05/30/2017 Sulfa (Sulfonamide Antibiotics) Hives 03/2007 Medications amLODIPine (NORVASC) 10 mg tablet Take 10 mg by mouth once daily. Take 1 tablet by mouth daily Active multivitamin (MVI) tablet Take 1 tablet by mouth once daily. Take 1 tablet by mouth daily Active cholecalciferol (VITAMIN D-3) 2,000 unit capsule Take 1 capsule by mouth once daily. 0 8 Active simethicone chewable (MYLANTA GAS RELIEF; GAS X) 80 mg chewable tablet Chew 80 mg by mouth 4 times daily if needed for Flatulence. Max dose: 500 mg per 24 hrs Active atorvastatin (LIPITOR) 40 mg tabletIndications:N STEMI (non-ST elevated myocardial infarction) (HC) Take 1 Tablet (40 mg) by mouth at bedtime. 30 Tablet 2 03/10/2024 1:05 PM CDT 4 Active metoprolol succinate (TOPROL XL) 25 mg Sustained-Release tabletIndications:N STEMI (non-ST elevated myocardial infarction) (HC) Take 1 Tablet (25 mg) by mouth once daily. 30 Tablet 2 03/10/2024 1:05 PM CDT 4 Active nitroglycerin (NITROSTAT) 0.4 mg sublingual tabletIndications:N STEMI (non-ST elevated myocardial infarction) (HC) Place 1 Tablet (0.4 mg) under the tongue every 5 minutes if needed for Chest pain 1st choice (Hold if SBP less than 90 mmHg). Up to 3 tablets in 15 minutes. 25 Tablet 03/10/2024 1:05 PM CDT 4 Active apixaban (ELIQUIS) 5 mg tabletIndications:p revent thromboembolism in chronic atrial fibrillation Take 1 Tablet (5 mg) by mouth two times daily. Do not start before March 11, 2024. 60 Tablet 2 03/10/2024 6:16 PM CDT 4 Active clopidogreL (PLAVIX) 75 mg tabletIndications:N STEMI (non-ST elevated myocardial infarction) (HC) Take 1 Tablet (75 mg) by mouth once daily in the morning. Do not start before March 11, 2024. 30 Tablet 2 03/10/2024 6:16 PM CDT 4 Active Active Problems Problem Noted Date Diagnosed Date NSTEMI (non-ST elevated myocardial infarction) 0 03/08/2024 Malignant melanoma of skin of scalp and neck Sensorineural hearing loss, bilateral 06/15/2007 Sinoatrial node dysfunction 08/16/2006 Unspecified essential hypertension 08/16/2006 PAROXYSMAL ATRIAL FIBRILLATION 08/16/2006 Overview (08/16/2006): s/p radiofrequency ablation 2003 and 2004 Social History Tobacco Use Types Packs/Day Years Used Date Smoking Tobacco: Never Tobacco Cessation:Counseling Given: Yes Alcohol Use Standard Drinks/Week Comments Not Asked 0 (1 standard drink = 0.6 oz pur e alcohol) PHQ-2 Answer Date Recorded PHQ-2 TOTAL SCORE 0 03/24/2024 Sex and Gender Information Value Date Recorded Sex Assigned at Not on file Legal Sex Male 6:52 AM UNLEAVENED [employer] Gender Identity Not on file Sexual Orientation Not on file Obstetrics History Last Filed Vital Signs Vital Sign Reading Time Taken Comments Blood Pressure 130/74 03/24/2024 2:00 PM CDT Pulse 98 03/24/2024 2:00 PM CDT Temperature 36.6 C (97.8 F) 03/10/2024 1:30 AM CDT Respiratory Rate 20 03/24/2024 2:00 PM CDT Oxygen Saturation 99% 03/24/2024 2:00 PM CDT Inhaled Oxygen Concentration - - Weight 93.1 kg (205 lb 4.8 oz) 03/24/2024 2:00 P M CDT Height 182.9 cm (6') 03/24/2024 2:00 PM CDT Body Mass Index 27.84 03/24/2024 2:00 PM CDT Plan of Treatment Health Maintenance Due Date Last Done Comments Tetanus booster 1950 BMI (ht and wt on same day) for age 18+ 1957 Pneumococcal series for age 50+ (1 of 2 - PCV) 1958 Zoster (shingles) series for age 50+ (1 of 2) 1989 Medicare Wellness for age 65+ 02/24/2004 RSV vaccine for adults or (1 - 1-dose 75+ series) 2014 COVID-19 vaccine series (2023- season) 2025 05/06/2024, 11/09/2023, 05/19/2023, Additional history exists Influenza Vaccine (#1) 2025 Depression screening for age 12+ 03/28/2025 03/28/2024, 03/25/2024, 03/24/2024, Additional history exists Hepatitis B series for 19+ Aged Out N o longer eligible based on patient's age to complete this topic Insurance MEDICARE PART B HB ONLY MEDICARE PART A HB ONLY [employer] BL[employer] MR PB ONLY [employer] BL[employer] HB ONLY Advance Directives * Full Code (Latest Code [...] 9:47 AM 01/16/2005 9:51 AM Care Teams Tow Feeder Relationship Specialty Start Date End Date Idania Iraheta MD [address] [place] [address] PCP - General Internal Medicine 05/12/24
[2025-03-27 14:04] VITALS: BP 122/75; PULSE 85; RESP 16; TEMP 35.9; O2SAT 94
--- NOTE | 2025-03-27 14:30 | CRLHL7_ITS ---
For Patients: As a result of the Century Cures Act, medical imaging exams and procedure reports are released immediately into your electronic medical record. You may view this report before your referring provider. If you have questions, please contact your health care provider. INDICATION: Leg pain and swelling. TECHNIQUE: Ultrasound venous duplex lower left extremity. Compression venous exam was performed using drew-scale, color Doppler, and spectral Doppler analysis. COMPARISON: None. FINDINGS: Deep veins: Sonographic imaging demonstrates the left common femoral, deep femoral, superficial femoral, popliteal, posterior tibial and the contralateral right common femoral veins to be fully compressible. Superficial veins: Greater saphenous vein is fully compressible. Indeterminate multicystic and tubular structure seen left proximal thigh within the area of described palpable lump, which measures 3.9 x 1.5 x 4.7 centimeters. IMPRESSION: No sonographic evidence of deep venous thrombus. Multicystic avascular structure seen in the proximal left thigh in the area of the palpable abnormality, which measures up to 4.7 centimeters. This finding remains indeterminate and could be reflective a lymphangioma. Recommend correlation with prior examinations. Dictated by Darien Hair MD @ 03/27/2025 4:04:06 PM (Electronically Signed)
--- NOTE | 2025-03-27 16:48 | ED_ITS ---
HPI - General Adult General Chief complaint: Lower Extremity Swelling Stated complaint: swelling in left leg/ lump in left groin Time Seen by Provider: 03/27/25 16:12 History of Present Illness HPI narrative: This 85-year-old male comes in reporting some swelling in his left lower extrem ity. He states that this is been present for the past several dates and does not report any injury. He is on Eliquis. He does not report any shortness of breath or pain. He has had both knees replaced and his left knee is more recently done. He does not have any fall or injury event. He also reports a swelling that comes and goes in his left inguinal region that he suspects is a hernia. He does not report any pain related to this. Related Data Home Medications ?Medication ?Instructions ?Recorded ?Confirmed cholecalciferol (vitamin D3) 25 25 mcg PO QDAY 2 08/11/24 mcg (1,000 unit) capsule multivitamin 1 tab PO QDAY 02/10/2208/11 atorvastatin 40 mg tablet 40 mg PO DAILY 03/22/2412/28 clopidogrel 75 mg tablet 75 mg PO DAILY 03/22/2412/28 metoprolol succinate 25 mg 25 mg PO DAILY 03/22/2412/28 tablet,extended release 24 hr nitroglycerin 0.4 mg sublingual 0.4 mg sublingual Q5M PRN 03/22/24 08/11/24 tablet simethicone 80 mg chewable tablet 80 mg PO BID-QID PRN 03/22/24 08/11/24 apixaban 5 mg tablet (Eliquis) 5 mg PO BID 08/11/24 Previous Rx's ?Medication ?Instructions ?Recorded codeine 10 mg-guaifenesin 100 mg/5 5 ml PO Q4-6H PRN [facility]237 mL 07/05/24 mL oral liquid amlodipine 5 mg tablet 10 mg (2 x 5 mg) PO QDAY #18 0 tabs 09/27/24 Allergies Allergy/AdvReac Type Severity Reaction Status Date / Time diltiazem Allergy Mild Unknown Verified 03/27/25 14:09 Sulfa (Sulfonamide Allergy Mild Verified 03/27/25 14:09 Antibiotics) Review of Systems Status of ROS: Reports: 10 or more systems reviewed and unremarkable except as noted in History and below Narrative: Constitutional: No fevers, no weight gain or loss. Eyes: No discharge. No vision changes. HENT: No congestion, no sore throat, no ear pain. Cardiovascular: No chest pain, no palpitations. Respiratory: No shortness of breath, no wheezes, no cough. Gastrointestinal: No abdominal pain, no vomiting, no diarrhea. Swelling in the left inguinal region. Genitourinary: No dysuria, no hematuria. Musculoskeletal: Normal range of motion. Left lower leg swelling. Skin: No rashes, no pruritis. Neurological: No dizziness, weakness, sensory change, speech change. Endo/Heme/Allergies: No bruising or bleeding. No polydipsia. Pysch: no suicidality, no anxiety, no insomnia. All other systems reviewed and are negative. [facility] Medical History (Updated 03/27/25 @ 16:54 by Mahesh Santos MD) History of renal calculi (2018) ?Z87.442 - Personal history of urinary calculi (ICD-10) Surgical History (Updated 03/22/24 @ 13:46 by Idania Iraheta MD) History of malignant melanoma ?Z85.820 - Personal history of malignant melanoma of skin (ICD-10) History of blepharoplasty ?Z98.890 - Other specified postprocedural states (ICD-10) History of foot surgery (12/12/10) ?Z98.890 - Other specified postprocedural states (ICD-10) History of squamous cell carcinoma in situ (SCCIS) of skin (2019) ?Z86.007 - Personal history of in-situ neoplasm of skin (ICD-10) Bleeding internal hemorrhoids (2015) ?K64.8 - Other hemorrhoids (ICD-10) Basal cell carcinoma of scalp (12/12/10) ?C44.41 - Basal cell carcinoma of skin of scalp and neck (ICD-10) History of left ankle joint replacement ?Z96.662 - Presence of left artificial ankle joint (ICD-10) History of total knee replacement (2011) ?Z96.659 - Presence of unspecified artificial knee joint (ICD-10) History of shoulder surgery (12/12/10) ?Z98.890 - Other specified postprocedural states (ICD-10) History of hernia repair (12/12/10) ?Z98.890 - Other specified postprocedural states (ICD-10) ?Z87.19 - Personal history of other diseases of the digestive system (ICD-10) History of blepharoplasty (2018) ?Z98.890 - Other specified postprocedural states (ICD-10) Status post left foot surgery (11/20/10) ?Z98.890 - Other specified postprocedural states (ICD-10) S/P right knee arthroscopy (11/20/10) ?Z98.890 - Other specified postprocedural states (ICD-10) History of hip surgery (07/21/19) ?Z98.890 - Other specified postprocedural states (ICD-10) Social History What is your current living situation?: I presently have a place to live Problems where you live: no known problems In the past 12 months, utilities in danger of being shut off: no In past 12 months, lack of transportation kept you from medical appts, meetings, work, or getting things needed for daily living: no In the past 12 mos, have been you worried that your food would run out before you had money to buy more?: never true In the past 12 mos, the food you bought just didn't last and you didn't have money to buy more?: never true Smoking Status: Never smoker How often do you have a drink containing alcohol: never AUDIT-C Alcohol total score: 0 Non-prescribed substance use: denies use How often does anyone, including family, friends and others, physically hurt you : never How often does anyone, including family, friends and others, insult or talk down to you: never How often does anyone, including family, friends and others, threaten you with harm: never How often does anyone, including family, friends and others, scream or curse at you: never Exam Narrative: Exam Narrative: Constitutional: Well-developed, well-nourished, no acute distress. HEENT: Normocephalic, atraumatic. Neck: Normal range of motion. Nontender. Supple. Heart: Regular. No murmurs. Normal rate. Intact distal pulses. Lungs: Clear to auscultation. No chest discomfort. No wheezes, rhonchi, or rales. Abdomen: Normal bowel sounds. Nontender. No rebound tenderness. Genitalia: Left inguinal hernia. Back: No midline tenderness. Normal range of motion. Extremities: Normal range of motion. No injury. Left lower extremity does have swelling in the mid calf region. This is pitting edema in this area but it does not extend down into his ankle. Skin: Intact. No rash. Warm. No erythema or pallor. Neurologic: No altered sensation. No weakness. Alert and oriented. Psychiatric: No suicidality. No anxiety or depression. No insomnia. Nursing notes and vitals signs are reviewed. Const: Vital Signs, click to edit/add: Vital Signs - 24 hr 03/27/25 14:04 Temperature 96.6 F L Pulse Rate [Pulse Oximeter] 85 Respiratory Rate 16 Blood Pressure [Ri ght Upper Arm] 122/75 Pulse Oximetry 94 Oxygen Delivery Me thod Room Air Course Vital Signs Vital signs: Initial Vital Signs Temperature 96.6 F L 03/27/25 14:04 Temperature Source Temporal Artery Scan 03/27/25 14:04 Pulse Rate 85 03/27/25 14:04 Pulse Rhythm Regular 03/27/25 14:04 Respiratory Rate 16 03/27/25 14:04 Blood Pressure 122/75 03/27/25 14:04 Blood Pressure Mean 90 03/27/25 14:04 Blood Pressure Position Sitting 03/27/25 14:04 Pulse Oximetry 94 03/27/25 14:04 Oxygen Delivery Method Room Air 03/27/25 14:04 Vital Signs Temperature 96.6 F L 03/27/25 14:04 Pulse Rate 85 03/27/25 14:04 Respiratory Rate 16 03/27/25 14:04 Blood Pressure 122/75 03/27/25 14:04 Pulse Oximetry 94 03/27/25 14:04 Oxygen Delivery Method Room Air 03/27/25 14:04 Temperature 96.6 F L 03/27/25 14:04 Pulse Rate 85 03/27/25 14:04 Respiratory Rate 16 03/27/25 14:04 Blood Pressure 122/75 03/27/25 14:04 Pulse Oximetry 94 03/27/25 14:04 Oxygen Delivery Method Room Air 03/27/25 14:04 Medical Decision Making MDM Narrative Medical decision making narrative: This patient is concerned about swelling in his left lower extremity. Ultrasound is obtained and shows no sign of deep venous thrombosis. The patient is on Eliquis. This swelling is from edema in his left leg only. His right leg does not have any edema. He did have a knee replacement and perhaps this swelling is some effusion of fluid from the joint above. For the patient is reassured with ultrasound results. I did place an Danielito wrap around his leg with some degree of compression and advised him to elevate his leg whenever he is sitting or lying. As for his inguinal hernia I stated that this is an elective repair if needed. The patient is not having any symptoms currently. I advised him regarding signs and symptoms that would indicate a need for return re- evaluation. Discharge Plan Discharge Clinical Impression: Pedal edema, Inguinal hernia Patient Disposition: Home, Self-Care Condition: Stable Additional Instructions: Continue current plans. Keep left leg elevated when reclining or sitting. Follow up with MD as needed or return if worsening. Prescriptions: No Action atorvastatin 40 mg tablet 40 mg PO DAILY clopidogrel 75 mg tablet 75 mg PO DAILY nitroglycerin 0.4 mg tablet, sublingual 0.4 mg sublingual Q5M PRN metoprolol succinate 25 mg tablet extended release 24 hr 25 mg PO DAILY simethicone 80 mg tablet,chewable 80 mg PO BID-QID PRN Eliquis 5 mg tablet 5 mg PO BID cholecalciferol (vitamin D3) 25 mcg (1,000 unit) capsule 25 mcg PO QDAY multivitamin Tablet 1 tab PO QDAY codeine-guaifenesin 10-100 mg/5 mL liquid 5 ml PO Q4-6H PRN (Reason: cough) Qty: 237 0RF amlodipine 5 mg tablet 10 mg PO QDAY Qty: 180 3RF Follow Up/Referrals: Idania Iraheta MD [Primary Care Provider, Internal Medicine] Stand Alone Forms: [employer] [facility] Info Instructions
== END 2025-03-27 17:02 | disposition home or self-care (01) ==
PROVIDERS: Emergency Provider Emergency Medicine Emergency Medical Services; PCP Internal Medicine
DX: R60.9 Edema, unspecified (principal); K40.90 Unilateral inguinal hernia, without obstruction or gangrene, not specified as recurrent
CPT/HCPCS: 93971; 99283; 99284

== ENCOUNTER 2025-04-18 11:51 | Outpatient (CLI) | payer MEDICARE, BC, SELFPAY | END 2025-04-18 11:52 | disposition home or self-care (01) | PROVIDERS: PCP Internal Medicine; Visit Provider Internal Medicine | DX: R60.0 Localized edema (principal) | CPT/HCPCS: 80053; 84439; 84443 ==